=== PATIENT | female | born 1945 | race Caucasian/White ===

== ENCOUNTER → 2017-08-27 14:47 | Outpatient (CLI) | payer MEDICARE, OTHER, SELFPAY ==
--- NOTE | 2017-08-27 14:54 | RAD_ITS ---
STUDY: X-RAY CHEST REASON FOR EXAM: Female, 72 years old. Cough. TECHNIQUE: PA and lateral views of the chest. COMPARISON: None. FINDINGS: The lungs are clear and expanded. There is no demonstrated pleural abnormality. Normal size heart. Normal mediastinum and milton. Normal visualized pulmonary arteries. There is mild tortuosity of the thoracic aorta. There are diffuse degenerative changes of the visualized thoracic spine. Normal visualized ribs, clavicles, and shoulders. There is no demonstrated abnormality of the visualized soft tissue structures of the upper abdomen. RAD/Chest PA and Lateral IMPRESSION: No acute cardiopulmonary disease. Electronically Signed: Jose E Mobley DO at 16:37 EDT Tel [phone], Service support ,
== END ==
PROVIDERS: Family Provider Family Medicine; PCP Family Medicine; Visit Provider Family Medicine
DX: R05 Cough (principal); N30.90 Cystitis, unspecified without hematuria
CPT/HCPCS: 71046; 87086

== ENCOUNTER → 2017-12-20 16:16 | Outpatient (CLI) | payer MEDICARE, OTHER, SELFPAY ==
--- NOTE | 2017-12-20 16:20 | RAD_ITS ---
STUDY: X-RAY - LUMBAR SPINE REASON FOR EXAM: Female, 72 years old. Back pain extending into the right hip with history of prior back surgeries TECHNIQUE: 6 view(s) of the lumbar spine were obtained. COMPARISON: None FINDINGS: Normal lumbar lordosis. There is a levoscoliosis of the lumbar spine. There is a normal alignment of the vertebrae. There is multilevel endplate spondylosis of the lumbar vertebrae. Operative changes with disc implants identified at L3-L4 and L4-L5. There is moderate facet arthropathy of the mid to lower lumbar levels. There is no demonstrated fracture. There is no demonstrated spondylolysis of the pars interarticulares. Minor loss of disc space at L2-L3. The soft tissue structures are unremarkable. RAD/L/S Spine Min 4 Views IMPRESSION: 1. Mid to lower level facet arthropathy. 2. Operative changes at L3-L4 and L4-L5. 3. Degenerative disc disease at L2-L3. Electronically Signed: Sanjay He MD at 8:23 EDT , Service support ,
--- NOTE | 2017-12-20 16:22 | RAD_ITS ---
STUDY: X-RAY - PELVIS AND RIGHT HIP REASON FOR EXAM: Female, 72 years old. Low back pain extending into the right hip TECHNIQUE: Radiological exam, hip, unilateral, with pelvis when performed; 2 or 3 views. COMPARISON: Report from left hip dated 06/14/2011 FINDINGS: There is a non-specific bowel gas pattern. Normal visualized soft tissue structures. There operative changes of the lower lumbar spine. Normal bilateral iliac wings, sacroiliac joints and visualized sacrum. Normal bilateral superior and inferior pubic rami. Normal pubic symphysis. There is a sclerotic lesion of the left acetabulum, without associated periosteal reaction or bony destruction. Normal visualized femoral head. Normal acetabulum. Normal hip joint. RAD/HIP, UNI W/ Pelvis 2-3 Views IMPRESSION: 1. No erosive or proliferative arthropathy. 2. Probable bone islands of the left acetabulum. Described in prior report of 2011 (images are not available for direct comparison). Electronically Signed: Sanjay He MD at 8:25 EDT , Service support ,
== END ==
PROVIDERS: Family Provider Family Medicine; PCP Family Medicine; Visit Provider Family Medicine
DX: M54.5 Low back pain (principal); M25.551 Pain in right hip
CPT/HCPCS: 72110; 73502

== ENCOUNTER → 2018-04-15 08:40 | Outpatient (CLI) | payer MEDICARE, OTHER, SELFPAY ==
--- NOTE | 2018-04-15 08:43 | BI_ITS ---
MAMMOGRAPHY - BILATERAL SCREENING REASON FOR EXAM: Female, 72 years old. Routine annual screening examination. PERTINENT HISTORY: Non-contributory. TECHNIQUE: Digital bilateral breast carlito (3D mammographic acquisition) in the CC and MLO projections. 2-D mediolateral oblique (MLO) and craniocaudad (CC) views of both breasts were obtained. CAD: Full Field Digital Mammography with Computer Added Detection was performed. COMPARISON: Comparison is made with prior mammogram dated April 14, 2017 and December 31, 2015. FINDINGS: Breast Composition: The breasts are heterogeneously dense, which may obscure small masses. There is a 2.1 cm x 1.4 cm slightly lobular nodule in the inferior anterior medial aspect of the right breast. Prior sonogram demonstrated this to be a cyst. No other significant abnormalities are identified. There has been no significant change since the prior study. BI/SCREENING MAMM (CAD), BILAT IMPRESSION: Stable bilateral screening mammogram. Yearly follow-up mammogram recommended. (A) ASSESSMENT CATEGORY: BIRADS Category 2: Benign. A letter regarding these results will be sent to the patient by the facility within 30 days. Approximately 10% of breast cancers are not detected by mammography. A normal mammogram should not delay biopsy of a clinically suspicious abnormality. [id number] Electronically Signed: Parth Alvarenga MD at 13:13 EST Tel [phone], Service support ,
--- OUTSIDE RECORDS SUMMARY | 2018-06-08 10:03 | XMS RPT_ITS ---
:1945 Author Organization [facility] Care Team Providers Name Role Phone Venkata Patel Attending Unavailable Jorge, Venkata Referring Unavailable Patel, Venkata Primary Care Unavailable Jorge Venkata Attending Unavailable Patel, Venkata Referring Unavailable Patel, Venkata Primary Care Unavailable Ignacia De Paz Attending Unavailable Ignacia De Paz Referring Unavailable Patel, Venkata Primary Care Unavailable PROBLEMS PROBLEMS DATE TYPE CONDITION / CODE ATTENDING STATUS SOURCE 12/20/2017 Unknown M25.551 - Pain in Patel, Venkata Active [facility] right hip / [facility] M25.551(ICD-10) Hospital Repository 12/20/2017 Unknown M54.5 - Low back Patel, Venkata Active [facility] pain / [facility] M54.5(ICD-10) Hospital Repository 08/27/2017 Unknown N30.90 - Patel, Venkata Active [facility] Cystitis, Community unspecified Hospital without hematuria Repository / N30.90(ICD-10) 08/27/2017 Unknown R05 - Cough / Patel, Venkata Active [facility] R05(ICD-10) [facility] PROCEDURES PROCEDURES No Procedure Records FoundRESULTS RESULTS SCREENING MAMM (CAD), Observed: 04/15/2018 Status: F Source: [place] 8:44 AM [facility] REPOSITORY [facility] Imaging Services [address] [place] [address] SCREENING MAMM (CAD), BILAT MR#: [id number] Acct: [id number] Name: ODILON TEJADA Rep #: [id number] : 1945 F 72 From: Parth Alvarenga MD PCP: Venkata Patel MD Status: REG CLI Study: SCREENING MAMM (CAD), BILAT Date of Exam: 04/15/18 Exam# [id number] Ordering Dr: Ignacia De Paz MD MAMMOGRAPHY - BILATERAL SCREENING REASON FOR EXAM: Female, 72 years old. Routine annual screening examination. PERTINENT HISTORY: Non-contributory. TECHNIQUE: Digital bilateral breast carlito (3D mammographic acquisition) in the CC and MLO projections. 2-D mediolateral oblique (MLO) and craniocaudad (CC) views of both breasts were obtained. CAD: Full Field Digital Mammography with Computer Added Detection was performed. COMPARISON: Comparison is made with prior mammogram dated April 14, 2017 and December 31, 2015. FINDINGS: Breast Composition: The breasts are heterogeneously dense, which may obscure small masses. There is a 2.1 cm x 1.4 cm slightly lobular nodule in the inferior anterior medial aspect of the right breast. Prior sonogram demonstrated this to be a cyst. No other significant abnormalities are identified. There has been no significant change since the prior study. BI/SCREENING MAMM (CAD), BILAT IMPRESSION: Stable bilateral screening mammogram. Yearly follow-up mammogram recommended. (A) ASSESSMENT CATEGORY: BIRADS Category 2: Benign. A letter regarding these results will be sent to the patient by the facility within 30 days. Approximately 10% of breast cancers are not detected by mammography. A normal mammogram should not delay biopsy of a clinically suspicious abnormality. [id number] Electronically Signed: Parth Alvarenga MD at 13:13 EST Tel [phone], Service support , CC: Ignacia De Paz MD; Venkata Patel MD Gyn Physician: Signed L/S SPINE MIN 4 Observed: 12/20/2017 Status: F Source: [place] VIEWS 4:20 PM [facility] [place] Imaging Services [address] [place] [address] L/S Spine Min 4 Views MR#: [id number] Acct: [id number] Name: ODILON TEJADA Rep #: [id number] : 1945 F 72 From: Sanjay He MD PCP: Venkata Patel MD Status: REG CLI Study: L/S Spine Min 4 Views Date of Exam: 12/20/17 Exam# [id number] Ordering Dr: Venkata Patel MD STUDY: X-RAY - LUMBAR SPINE REASON FOR EXAM: Female, 72 years old. Back pain extending into the right hip with history of prior back surgeries TECHNIQUE: 6 view(s) of the lumbar spine were obtained. COMPARISON: None FINDINGS: Normal lumbar lordosis. There is a levoscoliosis of the lumbar spine. There is a normal alignment of the vertebrae. There is multilevel endplate spondylosis of the lumbar vertebrae. Operative changes with disc implants identified at L3-L4 and L4-L5. There is moderate facet arthropathy of the mid to lower lumbar levels. There is no demonstrated fracture. There is no demonstrated spondylolysis of the pars interarticulares. Minor loss of disc space at L2-L3. The soft tissue structures are unremarkable. RAD/L/S Spine Min 4 Views IMPRESSION: 1. Mid to lower level facet arthropathy. 2. Operative changes at L3-L4 and L4-L5. 3. Degenerative disc disease at L2-L3. Electronically Signed: Sanjay He MD at 8:23 EDT , Service support , CC: Venkata Patel MD Gyn Physician: Signed HIP, UNI W/ PELVIS Observed: 12/20/2017 Status: F Source: [place] 2-3 VIEWS 4:20 PM [facility] Imaging Services [address] [place] [address] HIP, UNI W/ Pelvis 2-3 Views MR#: [id number] Acct: [id number] Name: ODILON TEJADA Rep #: [id number] : 1945 F 72 From: Sanjay He MD PCP: Venkata Patel MD Status: REG CLI Study: HIP, UNI W/ Pelvis 2-3 Views Date of Exam: 12/20/17 Exam# [id number] Ordering Dr: Venkata Patel MD STUDY: X-RAY - PELVIS AND RIGHT HIP REASON FOR EXAM: Female, 72 years old. Low back pain extending into the right hip TECHNIQUE: Radiological exam, hip, unilateral, with pelvis when performed; 2 or 3 views. COMPARISON: Report from left hip dated 06/14/2011 FINDINGS: There is a non-specific bowel gas pattern. Normal visualized soft tissue structures. There operative changes of the lower lumbar spine. Normal bilateral iliac wings, sacroiliac joints and visualized sacrum. Normal bilateral superior and inferior pubic rami. Normal pubic symphysis. There is a sclerotic lesion of the left acetabulum, without associated periosteal reaction or bony destruction. Normal visualized femoral head. Normal acetabulum. Normal hip joint. RAD/HIP, UNI W/ Pelvis 2-3 Views IMPRESSION: 1. No erosive or proliferative arthropathy. 2. Probable bone islands of the left acetabulum. Described in prior report of 2011 (images are not available for direct comparison). Electronically Signed: Sanjay He MD at 8:25 EDT , Service support , CC: Venkata Patel MD Gyn Physician: Signed Observed: 08/27/2017 Status: F Source: [place] CULTURE, URINE 2:56 PM [facility] Urine Culture Culture exhibits no growth. Performed By: #### M100.0650 #### [facility] [address] [place], [address] CHEST PA AND LATERAL Observed: 08/27/2017 Status: F Source: [place] 2:54 PM [facility] Imaging Services [address] [place] [address] Chest PA and Lateral MR#: [id number] Acct: [id number] Name: ODILON TEJADA Rep #: [id number] : 1945 F 72 From: Jose E Mobley DO PCP: Venkata Patel MD Status: REG CLI Study: Chest PA and Lateral Date of Exam: 08/27/17 Exam# [id number] Ordering Dr: Venkata Patel MD STUDY: X-RAY CHEST REASON FOR EXAM: Female, 72 years old. Cough. TECHNIQUE: PA and lateral views of the chest. COMPARISON: None. FINDINGS: The lungs are clear and expanded. There is no demonstrated pleural abnormality. Normal size heart. Normal mediastinum and milton. Normal visualized pulmonary arteries. There is mild tortuosity of the thoracic aorta. There are diffuse degenerative changes of the visualized thoracic spine. Normal visualized ribs, clavicles, and shoulders. There is no demonstrated abnormality of the visualized soft tissue structures of the upper abdomen. RAD/Chest PA and Lateral IMPRESSION: No acute cardiopulmonary disease. Electronically Signed: Jose E Mobley at 16:37 EDT Tel [phone], Service support , CC: Venkata Patel MD Gyn Physician: Signed ALLERGIES ALLERGIES No Allergies Records FoundENCOUNTERS ENCOUNTERS ADMIT/DISCHARGE ACCOUNT ADMITTING ENCOUNTER LOCATION SOURCE NUMBER CLASS 04/15/2018 [id number] Ambulatory [facility] 5 [facility] ing:OPBI Repository 12/20/2017 [id number] Ambulatory [facility] 6 [facility] ing:MTRAD Repository 08/27/2017 [id number] Ambulatory [facility] 8 [facility] ing:MTLAB Repository PAYERS PAYERS ENCOUNTER GUARANTOR PAYER SUBSCRIBER SOURCE 04/15/2018 ODILON F Primary ODILON F [facility] [id number] Insurance:MEDICARE WALKERLYDOB: [facility] [id number] Number: Repository [id number]: 330 [id number] [phone] () Date:2018-01-01 04/15/2018 Secondary ODILON F [facility] Insurance:MEDICAL WALKERLYDOB: [facility] [id number] Hospital Number: Repository [id number] Date:4926-19-[address] [address]TG: 04/15/2018 Tertiary NOT GIVENUNK [facility] Insurance:SELF PAY [facility] Number: Effective Repository Date:2018-01-01 12/20/2017 SARAH Schneider Primary ODILON F [facility] [id number] Insurance:MEDICARE WALKERLYDOB: [facility] [id number] Number: Repository [id number]: 330 [id number] [phone] () Date:2017-12-20 12/20/2017 Secondary ODILON F [facility] Insurance:MEDICAL WALKERLYDOB: [facility] [id number] Hospital Number: Repository [id number] Date:3758-63-66[address] [place] [address] [place] [address]XW: 12/20/2017 Tertiary NOT GIVENUNK [facility] Insurance:SELF PAY [facility] Number: Effective Repository Date:2017-12-20 08/27/2017 SARAH Schneider Primary ODILON F [facility] [id number] Insurance:MEDICARE WALKERLYDOB[place] [facility] [id number] Number: Repository [id number]: [phone] [id number] [phone] () Date:2017-08-27 08/27/2017 Secondary ODILON F [facility] Insurance:MEDICAL WALKERLYDOB: [facility] [id number] Hospital Number: Repository [id number] Date:5291-25-89[address], [place] [address]HU: 08/27/2017 Tertiary NOT GIVENUNK [facility] Insurance:SELF PAY [facility] Number: Effective Repository Date:2017-08-27
== END ==
PROVIDERS: Family Provider Family Medicine; PCP Family Medicine; Referring Provider Obstetrics & Gynecology; Visit Provider Obstetrics & Gynecology
DX: Z12.31 Encounter for screening mammogram for malignant neoplasm of breast (principal)
CPT/HCPCS: 77063; 77067

== ENCOUNTER → 2018-11-11 | Outpatient (CLI) | payer MEDICARE, OTHER, SELFPAY | END | disposition home or self-care (01) | LOC: LABSPEC 12:59 | PROVIDERS: Family Provider Family Medicine; PCP Family Medicine; Referring Provider Family Medicine; Visit Provider Family Medicine | DX: J32.9 Chronic sinusitis, unspecified (principal) | CPT/HCPCS: 87070; 87077; 87205 ==

== ENCOUNTER → 2019-06-18 08:34 | Outpatient (CLI) | payer MEDICARE, OTHER, SELFPAY ==
--- NOTE | 2019-06-18 08:36 | BI_ITS ---
MAMMOGRAPHY - BILATERAL SCREENING REASON FOR EXAM: Female, 74 years old. Routine annual screening examination. PERTINENT HISTORY: Non-contributory. Prior right breast aspiration. TECHNIQUE: Digital bilateral breast yaritza (3D mammographic acquisition) in the CC and MLO projections. 2-D mediolateral oblique (MLO) and craniocaudad (CC) views of both breasts were obtained. CAD: Full Field Digital Mammography with Computer Added Detection was performed. COMPARISON: Comparison is made with prior examination dated April 15, 2018 and April 14, 2017. FINDINGS: Breast Composition: The breasts are heterogeneously dense, which may obscure small masses. There are no dominant masses or suspicious calcifications. There is a 1.4 cm x 1.5 cm slightly lobulated nodule in the slightly inferior medial aspect of the right breast. This has decreased in size as compared to prior study. This was demonstrated to be a cyst on prior sonogram. No other significant abnormalities are identified. There has been no significant change since the prior study. BI/SCREEN MAMM (CAD) W/YARITZA BILAT IMPRESSION: Stable bilateral screening mammogram. Yearly follow-up mammogram recommended. (A) ASSESSMENT CATEGORY: BIRADS Category 2: Benign. A letter regarding these results will be sent to the patient by the facility within 30 days. Approximately 10% of breast cancers are not detected by mammography. A normal mammogram should not delay biopsy of a clinically suspicious abnormality. [id number] Electronically Signed: Parth Alvarenga, at 14:44 EST , Service support ,
== END ==
PROVIDERS: PCP Family Medicine; Referring Provider Obstetrics & Gynecology; Visit Provider Obstetrics & Gynecology
DX: Z12.31 Encounter for screening mammogram for malignant neoplasm of breast (principal)
CPT/HCPCS: 77063; 77067

== ENCOUNTER → 2020-08-25 10:05 | Outpatient (CLI) | payer MEDICARE, SELFPAY ==
--- NOTE | 2020-08-25 10:07 | BI_ITS ---
MAMMOGRAPHY - BILATERAL SCREENING REASON FOR EXAM: Female, 75 years old. Routine annual screening examination. PERTINENT HISTORY: Non-contributory. TECHNIQUE: Digital bilateral breast yaritza (3D mammographic acquisition) in the CC and MLO projections. 2-D mediolateral oblique (MLO) and craniocaudad (CC) views of both breasts were obtained. CAD: Full Field Digital Mammography with Computer Added Detection was performed. COMPARISON: Comparison is made with prior study dated 06/18/2019 and 04/15/2018. FINDINGS: Breast Composition: The breasts are heterogeneously dense, which may obscure small masses. Stable 1.4 cm x 1.5 cm slightly lobulated nodule in the slightly inferior medial aspect of the right breast. Stable small benign-appearing bilateral axillary lymph nodes. This was demonstrated to be a cyst on prior ultrasound. No other significant abnormalities are identified. There has been no significant change since the prior study. BI/SCRN MAMM (CAD)W/YARITZA BILAT IMPRESSION: Stable bilateral screening mammogram. Yearly follow-up mammogram recommended. (A) ASSESSMENT CATEGORY: BIRADS Category 2: Benign. A letter regarding these results will be sent to the patient by the facility within 30 days. Approximately 10% of breast cancers are not detected by mammography. A normal mammogram should not delay biopsy of a clinically suspicious abnormality. [id number] Electronically Signed: Parth Alvarenga MD at 11:20 EDT , Service support ,
== END ==
PROVIDERS: PCP Family Medicine; Referring Provider Student in an Organized Health Care Education/Training Program; Visit Provider Student in an Organized Health Care Education/Training Program
DX: Z12.31 Encounter for screening mammogram for malignant neoplasm of breast (principal)
CPT/HCPCS: 77063; 77067

== ENCOUNTER → 2020-09-08 10:53 | Outpatient (CLI) | payer MEDICARE, SELFPAY ==
--- NOTE | 2020-09-08 11:03 | BD_ITS ---
STUDY: DUAL ENERGY X-RAY ABSORPTIOMETRY / DXA REASON FOR EXAM: Female, 75 years old. V76.12ScreeningBONE DENSITY REASON FOR EXAM TECHNIQUE: Bone Mineral Density (BMD) measurements of lumbar spine and bilateral hips were obtained. COMPARISON: Comparison is made with prior study dated 04/27/2010. FINDINGS: Lumbar Spine (L1-L4): g/cm2 (1.122) / T-score (-0.4) / Z-score (1.4) Findings are suggestive of normal bone density with a low fracture risk. Increased thoracic kyphosis. Left Femur Total: g/cm2 (1.043) / T-score (0.3) / Z-score (2.0) Left Femoral Neck: g/cm2 (0.945) / T-score (-0.7) / Z-score (1.3) Right Femur Total: g/cm2 (1.059) / T-score (0.4) / Z-score (2.1) Right Femoral Neck: g/cm2 (0.968) / T-score (-0.5) / Z-score (1.4) The T-Scores on the most recent prior examination were: Lumbar Spine (L1-L4): There has been improvement of bone density since the previous examination. Left Femur Total: which represents an improvement of 2.4%. Right Femur Total: which represents an improvement of 2.3%. BD/Dexa Bone Density Study IMPRESSION: The patient is considered normal as outlined below according to World Manoj Organization (WHO) criteria with a low fracture risk. There has been improvement of bone density since the previous examination. Reference Information: The T-score is the number of standard deviations above or below the standard which is normal for young adults at their peak bone mineral density. The World Health Organization (WHO) interprets the T-scores as follows: Above -1 Normal bone density Between -1 and -2.5 Osteopenia Equal to / or below -2.5 Osteoporosis As a practical clinical guideline, osteopenia may be graded as follows: Mild -1 through -1.5 Moderate -1.6 through -2.0 Severe -2.1 through -2.4 The Z-score is the number of standard deviations above or below age-matched controls. A Z-score of less than -1.5 would be considered abnormal. References: 1. NIH Osteoporosis and Related Bone Diseases www osteo.org 2. International Society for Clinical Densitometry www iscd.org 3. National Osteoporosis Foundation www nof.org Electronically Signed: Parth Alvarenga MD at 14:26 EDT , Service support ,
== END ==
PROVIDERS: PCP Family Medicine; Referring Provider Student in an Organized Health Care Education/Training Program; Visit Provider Student in an Organized Health Care Education/Training Program
DX: Z13.820 Encounter for screening for osteoporosis (principal); M81.0 Age-related osteoporosis without current pathological fracture
CPT/HCPCS: 77080

== ENCOUNTER → 2021-09-02 | Outpatient (CLI) | payer MEDICARE, SELFPAY | END | disposition home or self-care (01) | LOC: LABSPEC 15:13 | PROVIDERS: PCP Family Medicine; Referring Provider Otolaryngology Otolaryngology/Facial Plastic Surgery; Visit Provider Otolaryngology Otolaryngology/Facial Plastic Surgery | DX: J32.9 Chronic sinusitis, unspecified (principal) | CPT/HCPCS: 87070; 87205 ==

== ENCOUNTER → 2021-09-21 | Outpatient (CLI) | payer MEDICARE, SELFPAY ==
[2021-09-21 12:31] LABS: Absolute Lymphocyte Count 1.33 X10^3/uL (0.83-4.51); Absolute Neutrophil Count 3.5 X10^3/uL (2.0-7.7); Basophil# 0.12 X10^3/uL; Basophil% 2.2 % (0-1); Eosinophil# 0.23 X10^3/uL; Eosinophils% 4.1 % (0-5); Hematocrit 44.6 % (37-47); Hemoglobin 14.3 g/dL (12.0-15.0); Lymphocyte # 1.33 X10^3/ul (0.83-4.51); Lymphocyte % 23.8 % (19-41); Mean Corp Hgb Conc 32.1 g/dL (32-36); Mean Corpuscular Hgb 29.7 pg (27.0-32.0); Mean Corpuscular Volume 92.7 fL (81-99); Mean Platelet Vol. 10.4 fl (6.2-12.0); Monocyte# 0.41 X10^3/uL; Monocyte% 7.3 % (0-10); NRBC Flagged by Analyzer 0 % (0-5); Neutrophil # 3.46 X10^3/uL (2.7-7.7); Neutrophil % 62.1 % (47-70); Platelet Count 221 K/mm3 (150-450); RBC Distribution Width SD 44.2 fl (35.1-43.9); Red Blood Count 4.81 M/mm3 (4.2-5.4); White Blood Count 5.6 K/mm3 (4.4-11.0)
[2021-09-21 12:54] LABS: AST(SGOT) 12 U/L (15-37); Alanine Aminotransfer ALT/SGPT 23 U/L (13-56); Albumin, Serum 3.6 g/dL (3.2-5.0); Alkaline Phosphatase 53 U/L (45-117); Anion Gap 7 (5-15); BUN 21 mg/dL (7-18); BUN/Creat Ratio 23.9 RATIO (10-20); Calcium,Total 8.5 mg/dL (8.5-10.1); Chloride 104 mmol/L (98-107); Creatinine, Serum 0.88 mg/dL (0.55-1.02); EST Glomerular Filtration Rate 67 mL/min (>60); Est Glom Filt Rate - Afr Amer 81 mL/min (>60); Globulin 3.5 g/dL (2.2-4.2); Glucose 120 mg/dL (74-106); Potassium 3.5 mmol/L (3.5-5.1); Protein, Total 7.1 g/dL (6.4-8.2); Sodium Level 137 mmol/L (136-145); T4 Free Direct 1.23 ng/dL (0.76-1.46); Thyroid Stim Hormone (TSH) 0.68 uIU/mL (0.358-3.74)
[2021-09-21 13:09] LABS: Microalbumin,Random Urine 6.9 mg/L (NO RANGE EST.); Microalbumin:Creatinine Ratio 13.8 mg/g CRE (<30 mg/g CRE)
[2021-09-21 13:17] LABS: Hepatitis C Antibody Non-Reactive (Nonreactive)
== END | disposition home or self-care (01) ==
PROVIDERS: PCP Family Medicine; Referring Provider Family Medicine; Visit Provider Family Medicine
DX: I10 Essential (primary) hypertension (principal); Z11.59 Encounter for screening for other viral diseases; M48.061 Spinal stenosis, lumbar region without neurogenic claudication; E03.9 Hypothyroidism, unspecified
CPT/HCPCS: 36415; 80053; 82043; 82570; 84439; 84443; 85025; 86803

== ENCOUNTER → 2021-09-26 | Outpatient (CLI) | payer MEDICARE, SELFPAY ==
--- NOTE | 2021-09-26 08:47 | BI_ITS ---
MAMMOGRAPHY - BILATERAL SCREENING REASON FOR EXAM: Female, 76 years old. Routine annual screening examination. PERTINENT HISTORY: Non-contributory. TECHNIQUE: Digital bilateral breast yaritza (3D mammographic acquisition) in the CC and MLO projections. 2-D mediolateral oblique (MLO) and craniocaudad (CC) views of both breasts were obtained. CAD: Full Field Digital Mammography with Computer Added Detection was performed. COMPARISON: Comparison is made with prior study dated 08/25/2020 06/18/2019. FINDINGS: Breast Composition: The breasts are heterogeneously dense, which may obscure small masses. There are no dominant masses or suspicious calcifications. The previously seen 1.4 cm by 1.5 cm nodular density in the slightly inferior medial aspect of the right breast is once again seen. It is essentially unchanged. This was demonstrated to be a cyst on prior sonogram. Stable small benign-appearing bilateral axillary lymph nodes. No other significant abnormalities are identified. There has been no significant change since the prior study. BI/SCRN MAMM (CAD)W/YARITZA BILAT IMPRESSION: Stable bilateral screening mammogram. Yearly follow-up mammogram recommended. (A) ASSESSMENT CATEGORY: BIRADS Category 2: Benign. A letter regarding these results will be sent to the patient by the facility within 30 days. Approximately 10% of breast cancers are not detected by mammography. A normal mammogram should not delay biopsy of a clinically suspicious abnormality. [id number] Electronically Signed: Parth Alvarenga MD at 10:33 EDT ,
== END | disposition home or self-care (01) ==
LOC: OPBI 08:40
PROVIDERS: PCP Family Medicine; Visit Provider Student in an Organized Health Care Education/Training Program
DX: Z12.31 Encounter for screening mammogram for malignant neoplasm of breast (principal)
CPT/HCPCS: 77063; 77067

== ENCOUNTER → 2022-11-10 | Outpatient (CLI) | payer MEDICARE, SELFPAY ==
[2022-11-10 11:20] LABS: ALB/GLOB Ratio 0.9 RATIO (0.9-2.4); AST(SGOT) 17 U/L (15-37); Alanine Aminotransfer ALT/SGPT 22 U/L (13-56); Albumin, Serum 3.6 g/dL (3.2-5.0); Alkaline Phosphatase 59 U/L (45-117); Anion Gap 6 (5-15); BUN 16 mg/dL (7-18); BUN/Creat Ratio 21.7 RATIO (10-20); Calcium,Total 9.2 mg/dL (8.5-10.1); Chloride 107 mmol/L (98-107); Cholesterol 219 mg/dL (200); Creatinine, Serum 0.74 mg/dL (0.55-1.02); EST Glomerular Filtration Rate 81 mL/min (>60); Est Glom Filt Rate - Afr Amer 98 mL/min (>60); Globulin 3.9 g/dL (2.2-4.2); Glucose 94 mg/dL (74-106); High Density Lipoprotein 66 mg/dL; Potassium 3.7 mmol/L (3.5-5.1); Protein, Total 7.5 g/dL (6.4-8.2); Sodium Level 141 mmol/L (136-145); Thyroid Stim Hormone (TSH) 1.07 uIU/mL (0.358-3.74); Triglycerides 140 mg/dL; Very Low Density Lipoprotein 28 mg/dL (5-40)
[2022-11-10 13:08] LABS: Microalbumin,Random Urine < 5.0 mg/L (NO RANGE EST.)
== END | disposition home or self-care (01) ==
LOC: MTLAB 07:30
PROVIDERS: PCP Family Medicine; Referring Provider Family Medicine; Visit Provider Family Medicine
DX: I10 Essential (primary) hypertension (principal); Z13.220 Encounter for screening for lipoid disorders; E03.9 Hypothyroidism, unspecified
CPT/HCPCS: 36415; 80053; 80061; 82043; 82570; 84443

== ENCOUNTER → 2022-12-12 | Outpatient (CLI) | payer MEDICARE, SELFPAY ==
--- NOTE | 2022-12-12 09:16 | BI_ITS ---
MAMMOGRAPHY - BILATERAL SCREENING REASON FOR EXAM: Female, 77 years old. Routine annual screening examination. PERTINENT HISTORY: Non-contributory. Remote right breast aspiration. TECHNIQUE: Digital bilateral breast yaritza (3D mammographic acquisition) in the CC and MLO projections. 2-D mediolateral oblique (MLO) and craniocaudad (CC) views of both breasts were obtained. CAD: Full Field Digital Mammography with Computer Added Detection was performed. COMPARISON: Comparison is made with prior study dated September 26, 2021 and August 25, 2020. FINDINGS: Breast Composition: The breasts are heterogeneously dense, which may obscure small masses. There is a 1.4 cm x 1.3 cm well-defined nodule in the medial central portion of the right breast. This also evidence of a 8.2 mm x 6.8 mm nodule in the retroareolar region of the right breast. This also evidence of a small well-defined nodules in the retroareolar region of the left breast. The larger measures 7.1 cm x 7.4 cm. Correlation with ultrasound is recommended for further evaluation. Stable small benign-appearing bilateral axillary lymph nodes. No other significant abnormalities are identified. BI/SCRN MAMM (CAD)W/YARITZA BILAT IMPRESSION: Nodular densities are seen in both breasts as described. Correlation with ultrasound is recommended. ASSESSMENT CATEGORY: BIRADS Category 0: Incomplete. Need additional imaging evaluation. A letter regarding these results will be sent to the patient by the facility within 30 days. Approximately 10% of breast cancers are not detected by mammography. A normal mammogram should not delay biopsy of a clinically suspicious abnormality. [id number] Electronically Signed: Parth Alvarenga MD at 14:02 EDT ,
== END | disposition home or self-care (01) ==
LOC: OPBI 09:15
PROVIDERS: PCP Family Medicine; Referring Provider Student in an Organized Health Care Education/Training Program; Visit Provider Student in an Organized Health Care Education/Training Program
DX: Z01.419 Encounter for gynecological examination (general) (routine) without abnormal findings (principal); Z12.31 Encounter for screening mammogram for malignant neoplasm of breast
CPT/HCPCS: 77063; 77067

== ENCOUNTER → 2022-12-22 | Outpatient (CLI) | payer MEDICARE, SELFPAY ==
--- NOTE | 2022-12-22 07:59 | US_ITS ---
STUDY: ULTRASOUND BREAST - RIGHT REASON FOR EXAM: Female, 77 years old. Abnormal screening mammogram. TECHNIQUE: Axial and longitudinal images of the RIGHT breast were performed with a high resolution ultrasound transducer. # OF IMAGES: 37 COMPARISON: Comparison is made with prior mammogram dated December 12, 2022. FINDINGS: RIGHT Breast: There is a 1.9 cm x 1.2 cm x 1.3 cm cyst with low-level echoes at the 3:00 position of the breast at 3 cm from the nipple. The margins are slightly lobular. Cystic drainage is recommended. There are dilated subareolar ducts. IMPRESSION: 1.9 cm x 1.2 cm x 1.3 cm cyst with echoes within it at the 2:00 position breast at 3 cm from the nipple. The contour is slightly lobulated. Breast aspirations recommended. Dilated retroareolar ducts. ASSESSMENT CATEGORY: BIRADS Category 4: Suspicious - Biopsy Should Be Considered. A letter regarding these results will be sent to the patient by the facility within 30 days. Electronically Signed: Parth Alvaernga MD at 10:18 EDT , STUDY: ULTRASOUND BREAST - LEFT REASON FOR EXAM: Female, 77 years old. Abnormal screening mammogram. TECHNIQUE: Axial and longitudinal images of the LEFT breast were performed with a high resolution ultrasound transducer. # OF IMAGES: 37 COMPARISON: Comparison is made with prior mammogram dated December 12, 2022. FINDINGS: LEFT Breast: There are dilated subareolar ducts. US/Breast Limited Unilateral IMPRESSION: Dilated retroareolar ducts. ASSESSMENT CATEGORY: BIRADS Category 2: Benign. A letter regarding these results will be sent to the patient by the facility within 30 days. Electronically Signed: Parth Alvarenga MD at 10:19 EDT ,
== END | disposition home or self-care (01) ==
PROVIDERS: PCP Family Medicine; Referring Provider Student in an Organized Health Care Education/Training Program; Visit Provider Student in an Organized Health Care Education/Training Program
DX: R92.8 Other abnormal and inconclusive findings on diagnostic imaging of breast (principal)
CPT/HCPCS: 76642

== ENCOUNTER → 2023-02-02 | Outpatient (CLI) | payer MEDICARE, SELFPAY ==
--- NOTE | 2023-02-02 15:05 | US_ITS ---
STUDY: SUPERFICIAL ULTRASOUND - LEFT KNEE REASON FOR EXAM: Female, 77 years old. left popliteal and lateral calve/hamstring pain, fullness felt in TECHNIQUE: A superficial ultrasound was performed with real-time and static lopez-scale imaging. COMPARISON: None. 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 US/Ext Non Vasc Limited/Soft Tiss IMPRESSION: Ultrasound confirms within the linear of Jensen''s cyst. MRI may be useful. Electronically Signed: Hector De La Cruz MD at 14:32 EDT ,
== END | disposition home or self-care (01) ==
LOC: US 15:04
PROVIDERS: PCP Family Medicine; Referring Provider Family Medicine; Visit Provider Family Medicine
DX: M71.22 Synovial cyst of popliteal space [Baker], left knee (principal)
CPT/HCPCS: 76882

== ENCOUNTER → 2023-04-24 | Outpatient (CLI) | payer MEDICARE, SELFPAY ==
[2023-04-24 18:19] LABS: Microalbumin,Random Urine 12.2 mg/L (NO RANGE EST.); Microalbumin:Creatinine Ratio 16.4 mg/g CRE (<30 mg/g CRE)
[2023-04-24 18:27] LABS: ALB/GLOB Ratio 1.1 RATIO (0.9-2.4); AST(SGOT) 16 U/L (15-37); Alanine Aminotransfer ALT/SGPT 22 U/L (13-56); Albumin, Serum 3.8 g/dL (3.2-5.0); Alkaline Phosphatase 57 U/L (45-117); Anion Gap 8 (5-15); BUN 17 mg/dL (7-18); BUN/Creat Ratio 23.2 RATIO (10-20); Calcium,Total 9.2 mg/dL (8.5-10.1); Chloride 107 mmol/L (98-107); Creatinine, Serum 0.73 mg/dL (0.55-1.02); EST Glomerular Filtration Rate 82 mL/min (>60); Est Glom Filt Rate - Afr Amer 99 mL/min (>60); Globulin 3.6 g/dL (2.2-4.2); Glucose 109 mg/dL (74-106); Potassium 3.5 mmol/L (3.5-5.1); Protein, Total 7.4 g/dL (6.4-8.2); Sodium Level 140 mmol/L (136-145)
== END | disposition home or self-care (01) ==
LOC: MTLAB 13:30
PROVIDERS: PCP Family Medicine; Referring Provider Family Medicine; Visit Provider Family Medicine
DX: I10 Essential (primary) hypertension (principal)
CPT/HCPCS: 36415; 80053; 82043; 82570

== ENCOUNTER → 2023-09-17 | Outpatient (CLI) | payer MEDICARE, SELFPAY ==
[2023-09-17 12:32] LABS: Absolute Lymphocyte Count 1.53 X10^3/uL (0.83-4.51); Absolute Neutrophil Count 4.2 X10^3/uL (2.0-7.7); Basophil# 0.12 X10^3/uL; Basophil% 1.9 % (0-1); Eosinophil# 0.18 X10^3/uL; Eosinophils% 2.8 % (0-5); Hematocrit 44.3 % (37-47); Lymphocyte # 1.53 X10^3/ul (0.83-4.51); Lymphocyte % 23.6 % (19-41); Mean Corp Hgb Conc 31.6 g/dL (32-36); Mean Corpuscular Hgb 28.4 pg (27.0-32.0); Mean Corpuscular Volume 89.9 fL (81-99); Mean Platelet Vol. 10.1 fl (6.2-12.0); Monocyte# 0.44 X10^3/uL; Monocyte% 6.8 % (0-10); NRBC Flagged by Analyzer 0 % (0-5); Neutrophil # 4.19 X10^3/uL (2.7-7.7); Neutrophil % 64.6 % (47-70); Platelet Count 239 K/mm3 (150-450); RBC Distribution Width CV 13.9 % (11.6-14.6); RBC Distribution Width SD 45.5 fl (35.1-43.9); Red Blood Count 4.93 M/mm3 (4.2-5.4); White Blood Count 6.5 K/mm3 (4.4-11.0)
[2023-09-17 12:55] LABS: Vitamin B12 > 2000 pg/mL (211-911)
[2023-09-17 13:39] LABS: AST(SGOT) 15 U/L (15-37); Alanine Aminotransfer ALT/SGPT 17 U/L (13-56); Albumin, Serum 3.6 g/dL (3.2-5.0); Alkaline Phosphatase 56 U/L (45-117); Anion Gap 4 (5-15); BUN 15 mg/dL (7-18); BUN/Creat Ratio 17.9 RATIO (10-20); Calcium,Total 8.8 mg/dL (8.5-10.1); Chloride 105 mmol/L (98-107); Creatinine, Serum 0.84 mg/dL (0.55-1.02); EST Glomerular Filtration Rate 70 mL/min (>60); Est Glom Filt Rate - Afr Amer 84 mL/min (>60); Globulin 3.6 g/dL (2.2-4.2); Glucose 126 mg/dL (74-106); Potassium 3.8 mmol/L (3.5-5.1); Protein, Total 7.2 g/dL (6.4-8.2); Sodium Level 139 mmol/L (136-145); T4 Free Direct 1.24 ng/dL (0.76-1.46); Thyroid Stim Hormone (TSH) 0.53 uIU/mL (0.358-3.74)
[2023-09-17 15:45] LABS: Microalbumin,Random Urine 5.3 mg/L (NO RANGE EST.); Microalbumin:Creatinine Ratio 11.1 mg/g CRE (<30 mg/g CRE)
== END | disposition home or self-care (01) ==
PROVIDERS: PCP Family Medicine; Referring Provider Family Medicine; Visit Provider Family Medicine
DX: R53.83 Other fatigue (principal); E03.9 Hypothyroidism, unspecified; I10 Essential (primary) hypertension
CPT/HCPCS: 80053; 82043; 82570; 82607; 82746; 84439; 84443; 85025

== ENCOUNTER → 2023-09-18 | Outpatient (CLI) | payer MEDICARE, SELFPAY ==
--- NOTE | 2023-09-18 09:33 | US_ITS ---
STUDY: ULTRASOUND BREAST - RIGHT REASON FOR EXAM: Female, 78 years old. Follow-up of right breast aspiration. TECHNIQUE: Axial and longitudinal images of the RIGHT breast were performed with a high resolution ultrasound transducer. # OF IMAGES: 8 COMPARISON: Comparison is made with prior sonogram of the right breast dated December 22, 2022. FINDINGS: RIGHT Breast: There is a 1.6 cm x 1.6 cm x 1.3 cm complex cystic structure at the 3:00 position of the breast at 3 cm from the nipple. This has decreased slightly in size as compared to prior study. US/Breast Limited Unilateral IMPRESSION: Persistent complex cystic structure at 3:00 position of the breast at 3 cm from the nipple. It has decreased slightly in size and presently measures 1.6 cm x 1.6 cm x 1.3 cm. ASSESSMENT CATEGORY: BIRADS Category 2: Benign. A letter regarding these results will be sent to the patient by the facility within 30 days. Electronically Signed: Parth Alvarenga MD at 15:33 EDT ,
== END | disposition home or self-care (01) ==
PROVIDERS: PCP Family Medicine; Visit Provider Surgery
DX: R92.8 Other abnormal and inconclusive findings on diagnostic imaging of breast (principal)
CPT/HCPCS: 76642

== ENCOUNTER → 2023-12-17 | Outpatient (CLI) | payer MEDICARE, SELFPAY ==
--- NOTE | 2023-12-17 11:45 | BI_ITS ---
MAMMOGRAPHY - BILATERAL SCREENING REASON FOR EXAM: Female, 78 years old. Routine annual screening examination. PERTINENT HISTORY: Non-contributory. History of prior right breast aspiration. TECHNIQUE: Digital bilateral breast yaritza (3D mammographic acquisition) in the CC and MLO projections. 2-D mediolateral oblique (MLO) and craniocaudad (CC) views of both breasts were obtained. CAD: Full Field Digital Mammography with Computer Added Detection was performed. COMPARISON: Comparison is made with prior study dated December 12, 2022 and September 26, 2021. FINDINGS: Breast Composition: The breasts are heterogeneously dense, which may obscure small masses. Once again, small bilateral well-defined nodules are seen in both breasts. The largest in the left breast measures 1 cm x 1.1 cm. This has decreased slightly in size as compared to prior study. The largest nodule in the left breast measures 1.2 cm x 1.4 cm. This is in the inferior medial aspect of the breast. No other significant abnormalities are identified. BI/SCRN MAMM (CAD)W/YARITZA BILAT IMPRESSION: Bilateral breast nodules. The nodule in the left breast has decreased in size. There is been a slight increase in the right breast nodule. Prior sonogram demonstrated these to be cysts. ASSESSMENT CATEGORY: BIRADS Category 2: Benign. A letter regarding these results will be sent to the patient by the facility within 30 days. Approximately 10% of breast cancers are not detected by mammography. A normal mammogram should not delay biopsy of a clinically suspicious abnormality. [id number] Electronically Signed: Parth Alvarenga MD at 12:39 EDT ,
== END | disposition home or self-care (01) ==
LOC: OPBI 11:44
PROVIDERS: PCP Family Medicine; Referring Provider Nurse Practitioner Women's Health; Visit Provider Nurse Practitioner Women's Health
DX: Z12.31 Encounter for screening mammogram for malignant neoplasm of breast (principal)
CPT/HCPCS: 77063; 77067

== ENCOUNTER → 2023-12-26 | Outpatient (CLI) | payer MEDICARE, SELFPAY ==
[2023-12-26 15:05] LABS: Absolute Lymphocyte Count 1.58 X10^3/uL (0.83-4.51); Absolute Neutrophil Count 4.5 X10^3/uL (2.0-7.7); Basophil# 0.11 X10^3/uL; Basophil% 1.5 % (0-1); Eosinophil# 0.21 X10^3/uL; Hematocrit 44.1 % (37-47); Hemoglobin 13.7 g/dL (12.0-15.0); Lymphocyte # 1.58 X10^3/ul (0.83-4.51); Lymphocyte % 22.3 % (19-41); Mean Corp Hgb Conc 31.1 g/dL (32-36); Mean Platelet Vol. 10.3 fl (6.2-12.0); Monocyte# 0.66 X10^3/uL; Monocyte% 9.3 % (0-10); NRBC Flagged by Analyzer 0 % (0-5); Neutrophil # 4.52 X10^3/uL (2.7-7.7); Neutrophil % 63.6 % (47-70); Platelet Count 277 K/mm3 (150-450); RBC Distribution Width CV 13.6 % (11.6-14.6); RBC Distribution Width SD 45.2 fl (35.1-43.9); White Blood Count 7.1 K/mm3 (4.4-11.0)
[2023-12-26 15:27] LABS: CRP < 2.90 mg/L (0.0-3.0)
[2023-12-26 15:42] LABS: Erythrocyte Sedimentation Rate 18 mm/hr (0-30)
== END | disposition home or self-care (01) ==
PROVIDERS: PCP Family Medicine; Referring Provider Family Medicine; Visit Provider Family Medicine
DX: Z96.652 Presence of left artificial knee joint (principal)
CPT/HCPCS: 36415; 85025; 85652; 86140

== ENCOUNTER 2024-02-11 07:47 | Day surgery (SDC) | payer MEDICARE, SELFPAY ==
[2024-02-11] VITALS (7 sets, daily range): BP systolic 120–130; BP diastolic 75–87; PULSE 72–95; RESP 14–18; TEMP 36.4–37.2; O2SAT 97–100; BMI 28.0
--- NOTE | 2024-02-11 08:10 | PCM.HP.BLA ---
History and Physical Date of Admission: 02/11/24 Date of Service: 01/16/24 MR#: [id number] Acct: [id number] Name: ODILON TEJADA Rep #: [id number] : 1945 Provider: Dr. Jia Stephen MD Age/Sex: 78/F Location: [facility] Status: Signed Intake Vital Signs 11/05/2413:02 01/13/2410:49 01/16/2408:52 Height 5 ft 5 in 5 ft 5 in 5 ft 5 in Weight: 171 lb 2 oz BMI 28.5 BP 123/76 H Blood Pressure Location Rt brachial Position Sitting Respiration 17 Pulse 82 Pulse Source Monitor Temp 97.3 F L Temp Source Temporal Pulse Oximetry (%) 98 Oxygen Delivery Method room air Intake Visit Reasons: positive cologuard Chief Complaint: positive cologuard Is patient in pain?: No Allergies amoxicillin (From Augmentin) Allergy (Intermediate, Verified 01/16/24 08:55) Rashclarithromycin (From Biaxin) Allergy (Intermediate, Verified 01/16/24 08:55) Rashclavulanic acid (From Augmentin) Allergy (Intermediate, Verified 01/16/24 08:55) Rashdoxycycline Allergy (Intermediate, Verified 01/16/24 08:55) HivesPenicillins Allergy (Intermediate, Verified 01/16/24 08:55) Hivesoxycodone (From Percocet) Allergy (Mild, Verified 01/16/24 08:55) RashSulfa (Sulfonamide Antibiotics) Allergy (Mild, Verified 01/16/24 08:55) Otherquinapril Adverse Reaction (Intermediate, Verified 01/16/24 08:55) Other Medications ?Medication ?Instructions ?Recorded ?Confirmed ?Type amlodipine 5 mg tablet 5 mg PO DAILY 02/12/23 01/16/24 History estradiol 0.075 mg/24 hr weekly 1 patch transdermal QWEEK 02/12/23 01/16/24 History transdermal patch (Climara) levothyroxine 100 mcg tablet 100 mcg PO DAILY 02/12/23 01/16/24 History (Synthroid) azithromycin 250 mg tablet See Rx Instructions PO .COMPLEX 10 01/14/24 01/16/24 Rx (Zithromax Z-Franco) days #11 tabs prednisone 10 mg tablet 10 mg PO .COMPLEX 12 days #30 tabs 01/14/24 01/16/24 Rx acetaminophen 650 mg 650 mg PO Q12H 01/16/24 01/16/24 History tablet,extended release (Tylenol Arthritis Pain) ascorbic acid (vitamin C) 1,000 mg 1 g PO QDAY 01/16/24 01/16/24 History capsule cholecalciferol (vitamin D3) 25 25 mcg PO QDAY 01/16/24 01/16/24 History mcg (1,000 unit) capsule cyanocobalamin (vitamin B-12) 1,000 mcg PO QDAY 01/16/24 01/16/24 History 1,000 mcg capsule meloxicam 15 mg tablet 15 mg PO QDAY 01/16/24 01/16/24 History trazodone 50 mg tablet 50 mg PO QDAY 01/16/24 01/16/24 History Have you fallen in the past year?: No PFSH Medical History (Updated 01/16/24 @ 08:51 by Gege Dumont) Osteoarthritis of left knee Left knee pain Surgical History Status post glaucoma surgery S/P knee replacement Finger joint replaced H/O: hemorrhoidectomy History of thyroidectomy History of hysterectomy Social History household members: spouse current occupational status: retired Smoking Status: Never smoker alcohol intake: never substance use type: does not use seatbelt use: always do you feel safe at home: Yes additional social history: - Dimitrios- Retired HPI HPI HPI: 78-year-old female presents due to positive Cologuard for diagnostic colonoscopy. Patient's last colonoscopy was at age 70 per patient negative. Patient states she has bowel movements daily denies any blood. Patient denies any chronic abdominal pain/nausea/vomiting/reflux. Patient denies any family history of colon cancer. Patient will be gone on a trip to [place] from January 19 through . ROS General General: No weight change, appetite, fatigue, colon cancer or breast cancer HEENT HEENT: Yes eye surgery; No difficulty swallowing, eye injury, swollen glands or hoarseness Endo Endocrine: Yes thyroid disease; No diabetes mellitus, thyroid cancer, Hair loss, heat intolerance or cold intolerance Skin Skin: No rash or changing moles Musc Musculoskeletal: Yes back problems and arthritis; No rheumatoid arthritis, gout or joint pain Cardio Cardiovascular: No murmur, pacemaker, heart disease, atrial fibrillation, high blood pressure, heart attack, heart stent, palpitations, shortness of breat with exertion or chest pain Psych Psychiatric: No depression, anxiety or hearing voices Resp Respiratory: No shortness of breath, No sleep apnea, No cough, No COPD, No asthma, No emphysema and No wheezing Gastro Gastrointestinal: No abdominal pain, No nausea or vomiting, No diarrhea, Yes constipation, No blood in stool, No acid reflux, No hemorrhoids, No ulcers, No gallbladder problem and No black,tarry stools Tony Hematologic: No blood thinners, No blood disorders, No bleeding, No anemia and No blood clots Neuro Neurologic: No numbness and No tingling Exam Const General: cooperative, healthy appearing, comfortable and no acute distress HENMT Head: normocephalic and atraumatic Neck Neck: supple Resp Effort & Inspection: normal respiratory effort Cardio Rate: regular rate GI Inspection: non-distended Palpation: soft and nontender Skin General: no rashes or lesions noted Neuro General: CN's II-XI intact bilaterally Extrem General: normal to inspection Psych Mental Status: mental status grossly normal Attitude: cooperative Assessment and Plan Assessment and Plan (1) Positive colorectal cancer screening using Cologuard test: Status: Acute Orders: Orders Colonoscopy 02/11/24 Plan I have discussed the above with the patient. I have offered the patient colonoscopy for evaluation. I have explained the risks/benefits of the procedure and described the procedure. I have discussed the risks with the patient, including but not limited to: infection, bleeding, perforation of the GI tract requiring emergency surgery, inability to complete the procedure, injury to any internal organs, complications of anesthesia, etc. - the patient understands and agrees to proceed. I have answered all the patient's questions to the patient's satisfaction and the patient has no further questions. The patient has been given instructions for the colon cleansing preparation. 1 day clears MiraLAX Dulcolax prep Jia Stephen M.D. Pager: [phone] [facility] [address] [place] [address], [facility], [address] [place] [address] Office: [phone] Coding Level of Care Code Off vis,new,level 3 Diagnoses Positive colorectal cancer screening using Cologuard test R19.5 Clinical Quality Measures Falls Risk Screening/Assistive Devices Have you fallen in the past year?: No 01/17/24901 <Electronically signed by Jia Stephen MD> Date Jia Stephen MD
--- NOTE | 2024-02-11 08:18 | PCM.PRE.AN2 ---
ASA Classification* ASA Classification ASA Classification: 2 Assessment & Plan Anesthesia* Anesthesia Assessment Anesthesia Assessment: Discussed sedation and/or anesthesia options, risks, benefits, and alternatives with patient/parents/legal guardian/POA. Questions invited. The patient/parents/legal guardian/POA seems to understand and agrees to proceed with anesthesia plan. Reviewed the physical assessment, medical history, allergy history and patient home medications list prior to surgery/procedure/anesthetic and documented any changes. Performed airway and anesthesia risk assessments. Anesthesia Type Anesthesia Type: MAC Anesthesia Focused Assessment* Airway Assessment Mouth opens: >3 cm Mallampati Score: II Focused Labs Anesthesia Preop lab: CBC WBC 7.1 K/mm3 (4.4-11.0) 12/26/23 13:44 RBC 4.90 M/mm3 (4.2-5.4) 12/26/23 13:44 Hgb 13.7 g/dL (12.0-15.0) 12/26/23 13:44 Hct 44.1 % (37-47) 12/26/23 13:44 Plt Count 277 K/mm3 (150-450) 12/26/23 13:44 CHEMISTRY Potassium 3.8 mmol/L (3.5-5.1) 09/17/23 11:11 Sodium 139 mmol/L (136-145) 09/17/23 11:11 BUN 15 mg/dL (7-18) 09/17/23 11:11 Creatinine 0.84 mg/dL (0.55-1.02) 09/17/23 11:11 Glucose 126 mg/dL (74-106) H 09/17/23 11:11 TSH 0.53 uIU/mL (0.358-3.74) 09/17/23 11:11 COAG Pre-Assessment Diagnosis/Proposed Procedure Planned Operative Procedure(s): CSCOPE Anesthesia History Anesthesia History - sales and marketing vice president: Anesthesia History - sales and marketing vice president Hx Hospitalization Yes: 10/2023 KNEE 02/07/24 09:58 REPLACEMENT @ [facility] Any Problems With Anesthesia No 02/07/24 09:58 Cholinesterase deficiency No 02/07/24 09:58 You/Your Family Experience No 02/07/24 09:58 fever (hyperthermia) with Relationship Recent Exposure to Contagious Disease Does patient have nerve No 02/07/24 09:58 stimulator Patient instructed to have device shut off --Does patient have Pacemaker or ICD? When Was Last Pacemaker Check QUESTION #4 FULL TEXT: You/Your Family Experience fever (hyperthermia) with Anesthesia Last Oral Intake Last Oral intake: Last Oral Intake NPO since Meds taken in AM with sips of water? Meds patient instructed to take am of surgery PONV PONV - sales and marketing vice president: PONV - sales and marketing vice president Female Yes 02/07/24 09:58 HX of Motion Sickness No 02/07/24 09:58 HX of N/V After Surgery No 02/07/24 09:58 Non-Smoker Yes 02/07/24 09:58 Duration of Surgery greater No 02/07/24 09:58 than 60 minutes Number of Risk Factors 2 02/07/24 09:58 PONV Score Moderate Risk 02/07/24 09:58 Height & Weight Height & Weight: Anesthesia: Height & Weight Height 5 ft 5 in 01/16/24 08:52 Respiratory Assessment Respiratory Assessment - sales and marketing vice president: Respiratory Tract Infection Hx - sales and marketing vice president Hx Respiratory Tract Infection No 02/07/24 09:58 STOP Sleep Apnea STOP Sleep Apnea - sales and marketing vice president: STOP Sleep Apnea - sales and marketing vice president Hx Hypertension Yes: CONTROLLED WITH MED 02/07/24 09:58 Hx Sleep Apnea No 02/07/24 09:58 CPAP BIPAP Do you snore loudly (louder No 02/07/24 09:58 than talking or can be heard Do you often feel tired/ No 02/07/24 09:58 fatigued/ sleepy during daytime? Has anyone observed you stop No 02/07/24 09:58 breathing during sleep? STOP Results Negative 02/07/24 09:58 QUESTION #5 FULL TEXT : Do you snore loudly (louder than talking or can be heard through closed doors)? 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 Specify any problems Hx of Preganancy in last 3 N/A 02/07/24 09:58 Months Nurse Filling Out Transfusion NBUCHER 02/07/24 09:58 & Questions: Date: 02/07/24 02/07/24 09:58 Time: 09:59 02/07/24 09:58 Patient unable to answer at this time (ie. confused, unrespo /Reproduction History /Reproductive History - sales and marketing vice president: /Reproductive Hx- sales and marketing vice president Hx Now No 02/07/24 09:58 Gestational Age (in weeks): EDC: Hx Hx Para Hx Section SAB No 02/07/24 09:58 Active Medications Active Medications: Current Medications Generic Name Dose Route Start Last Admin Trade Name Freq PRN Reason Stop Dose Admin Lactated Ringer's 1,000 mls @ 15 mls/hr 02/11/24 08:00 IV .Q48H TITO PFSH Medical History Loss of hearing Wears dentures History of steroid therapy Arthritis Thyroid disease Non-smoker History of edema Osteoarthritis of left knee Left knee pain Home Medications ?Medication ?Instructions ?Recorded ?Last Taken ?Type amlodipine 5 mg tablet 5 mg PO DAILY 02/12/23 Unknown History estradiol 0.075 mg/24 hr weekly 1 patch transdermal QWEEK 02/12/23 Unknown History transdermal patch (Climara) levothyroxine 100 mcg tablet 100 mcg PO DAILY 02/12/23 02/11/24 06:00 History (Synthroid) acetaminophen 650 mg 650 mg PO Q12H PRN pain 01/16/24 Unknown History tablet,extended release (Tylenol Arthritis Pain) ascorbic acid (vitamin C) 1,000 mg 1 g PO QDAY 01/16/24 Unknown History capsule cholecalciferol (vitamin D3) 25 25 mcg PO QDAY 01/16/24 Unknown History mcg (1,000 unit) capsule cyanocobalamin (vitamin B-12) 1,000 mcg PO QDAY 01/16/24 Unknown History 1,000 mcg capsule meloxicam 15 mg tablet 15 mg PO QDAY 01/16/24 Unknown History trazodone 50 mg tablet 50 mg PO QDAY 01/16/24 Unknown History Allergy/AdvReac Type Severity Reaction Status Date / Time amoxicillin (From Augmentin) Allergy Intermediate Rash Verified 02/07/24 09:56 clarithromycin (From Biaxin) Allergy Intermediate Rash Verified 02/07/24 09:56 clavulanic acid (From Allergy Intermediate Rash Verified 02/07/24 09:56 Augmentin) doxycycline Allergy Intermediate Hives Verified 02/07/24 09:56 Penicillins Allergy Intermediate Hives Verified 02/07/24 09:56 oxycodone (From Percocet) Allergy Mild Rash Verified 02/07/24 09:56 Sulfa (Sulfonamide Allergy Mild Other Verified 02/07/24 09:56 Antibiotics) quinapril AdvReac Intermediate Other Verified 02/07/24 09:56 Surgical History History of colonoscopy Status post glaucoma surgery S/P knee replacement Finger joint replaced H/O: hemorrhoidectomy History of thyroidectomy History of hysterectomy Social History household members: spouse current occupational status: retired Smoking Status: Never smoker alcohol intake: never substance use type: does not use seatbelt use: always do you feel safe at home: Yes additional social history: - Dimitrios- Retired Review of Systems (Anesthesia) ROS Narrative System reviewed and no additional complaints, except as documented.
[2024-02-11] MEDS: Lactated Ringers 1,000 ML 15 ML IV (08:22)
--- NOTE | 2024-02-11 08:58 | OP.COLON_ITS ---
Patient Name: Pham Perez Procedure Date: 02/11/2024 8:22 AM Date of : 1945 Age: 78 Procedure: Colonoscopy Indications: Positive Cologuard test Providers: Jia Stephen MD Referring MD: Venkata Patel Medicines: Monitored Anesthesia Care Patient Profile: This is a 78 year old female. Last Colonoscopy: 8 years ago. Complications: No immediate complications. Procedure: Pre-Anesthesia Assessment: - Prior to the procedure, a History and Physical was performed, and patient medications and allergies were reviewed. The patient's tolerance of previous anesthesia was also reviewed. The risks and benefits of the procedure and the sedation options and risks were discussed with the patient. All questions were answered, and informed consent was obtained. Prior Anticoagulants: The patient has taken no anticoagulant or antiplatelet agents. ASA Grade Assessment: Per anesthesia. After reviewing the risks and benefits, the patient was deemed in satisfactory condition to undergo the procedure. After I obtained informed consent, the scope was passed under direct vision. Throughout the procedure, the patient's blood pressure, pulse, and oxygen saturations were monitored continuously. The Colonoscope was introduced through the anus and advanced to the cecum, identified by the appendiceal orifice, ileocecal valve and palpation. The colonoscopy was performed without difficulty. The patient tolerated the procedure well. The quality of the bowel preparation was good. Scope In: 8:32:31 AM Scope Withdrawal Time 0 hours 15 minutes 15 seconds Scope Out: 8:52:37 AM Total Procedure Duration Time 0 hours 20 minutes 6 seconds Findings: Hemorrhoids were found on perianal exam. A 6 mm polyp was found in the ascending colon. The polyp was sessile. Polypectomy was attempted, initially using a piecemeal technique with a hot snare. Polyp resection was incomplete with this device. This intervention then required a different device and polypectomy technique. The polyp was removed with a cold biopsy forceps. Resection and retrieval were complete. The exam was otherwise without abnormality. A few small-mouthed diverticula were found in the sigmoid colon. Impression: - Hemorrhoids found on perianal exam. - One 6 mm polyp in the ascending colon, removed with a cold biopsy forceps. Resected and retrieved. - The examination was otherwise normal. Recommendation: - Discharge patient to home. - Resume previous diet. - Continue present medications. - Await pathology results. - Repeat colonoscopy in 3 years for surveillance after piecemeal polypectomy. Procedure Code(s): --- Professional --- 26590, Colonoscopy, flexible; with biopsy, single or multiple Diagnosis Code(s): --- Professional --- K64.9, Unspecified hemorrhoids D12.2, Benign neoplasm of ascending colon R19.5, Other fecal abnormalities CPT copyright 2021 [employer]. All rights reserved. The codes documented in this report are preliminary and upon certified vehicle fire investigator review may be revised to meet current compliance requirements. MD Jia Urena MD 02/11/2024 8:57:45 AM This report has been signed electronically. Number of Addenda: 0 Note Initiated On: 02/11/2024 8:22 AM
--- NOTE | 2024-02-11 08:58 | OP.CCLET_ITS ---
02/11/2024 Venkata Patel [address] [place] [address] Re : Colonoscopy procedure for Ph[facility] Dear Dr. Patel This procedure was performed on Sunday, February 11, 2024. My impressions and recommendations are as follows: Impressions : - Hemorrhoids found on perianal exam. - One 6 mm polyp in the ascending colon, removed with a cold biopsy forceps. Resected and retrieved. - The examination was otherwise normal. Recommendations : - Discharge patient to home. - Resume previous diet. - Continue present medications. - Await pathology results. - Repeat colonoscopy in 3 years for surveillance after piecemeal polypectomy. My findings are described in the full procedure note, which is enclosed. If I can be of further assistance, please feel free to contact me at Doctor phone number(s): , Work: . Sincerely, MD Jia Urena MD 02/11/2024 8:57:45 AM This report has been signed electronically.
--- NOTE | 2024-02-11 09:00 | COLBX_PTH ---
PATIENT: ODILON TEJADA LOC: EN U#:[id number] AGE/SX: 78/F ROOM: RE02/11/[address]: Dr. Jia Stephen MD : 1945 BED: DIS: 02/11/2024 SPEC #: [id number] RECD: 02/11/24 09:21 STATUS: RADHA ETHAN #: [id number] BRINDA: 02/11/24 09:[address]: Jia Stephen DEPT: SURGICAL PATHOLOGY RECD BY: Allyn Klein ENTERED: 02/11/24 11:02 SP TYPE: COLON BX OTHR DR: Dr. Venkata Patel MD Tissues: Ascending colon Procedures: Surgery Specimen Level IV HEADER OPERATION: Colonoscopy with biopsy and polypectomy PRE-OP DIAGNOSIS: Positive colorectal cancer screening using Cologuard test TISSUE SUBMITTED: Ascending colon biopsy polyp and hot snare MICROSCOPIC DIAGNOSIS Ascending colon polyp, biopsy: Fragments of tubular adenoma. AM.mr 02/12/2024 MICROSCOPIC DESCRIPTION Slides are reviewed. GROSS DESCRIPTION Received in fixative is one container labeled with the patient's name and designated Ascending colon polyp biopsy. The specimen consists of multiple irregular fragments of light choe soft tissue that in aggregate measure 1.5 x 0.5 x 0.1 cm. The specimen is totally submitted in one cassette. 02/11/2024 TC:5 CPT:18042
--- NOTE | 2024-02-11 09:00 | PCM.POST.ANE ---
Anesthesia: Postop Eval I Current Vital Signs Temperature: 97.5 F Pulse Rate: 76 Blood Pressure: 125/75 Respiratory Rate: 18 Pulse Ox: 97 Oxygen Delivery Method: Room Air Assessment Airway patent: Yes Spontaneous unlabored respirations: Yes Mental status: Asleep nausea: No Vomiting: No Anesthesia Complication: No Fluid Hydration Crystalloid volume administer (ml): 600 Total IV fluid infused: 600 Progress Note Anesthesia document: Postop Eval 1 completed: Yes
--- NOTE | 2024-02-11 10:49 | PCM.POSTANE2 ---
Anesthesia Postop Eval I Sum Postop Eval Completion status Anesthesia document: Postop Eval 1 completed: Yes Anesthesia Postop Eval I Summary Anesthesia Postop Eval I Summary: Anesthesia Postop Eval I: Assessment Summary Airway patent Yes 02/11/24 09:01 [email or web address] Spontaneous unlabored Yes 02/11/24 09:01 [email or web address] respirations Mental status Asleep 02/11/24 09:01 [email or web address] nausea No 02/11/24 09:01 [email or web address] Vomiting No 02/11/24 09:01 [email or web address] Anesthesia Postop Eval I: Fluid Summary Crystalloid volume administer 600 02/11/24 09:01 [email or web address] (ml) Colloids volume administered ( ml) Blood Product volume administered (ml) Total IV fluid infused 600 02/11/24 09:01 [email or web address] Anesthesia Postop Eval I: Summary Notes Anesthesia Complication No 02/11/24 09:01 [email or web address] Anesthesia Complication Comment: Post-operative progress note Anesthesia: Postop Eval II Evaluation Mental status: Awake Pain Level: 0 nausea: No Vomiting: No
== END 2024-02-11 09:42 | disposition home or self-care (01) ==
LOC: EN 07:47 → AC 07:48
PROVIDERS: PCP Family Medicine; Referring Provider Family Medicine; Visit Provider Surgery
PROC: 0DJD8ZZ Inspection of Lower Intestinal Tract, Via Natural or Artificial Opening Endoscopic (ICD-10-PCS; CPT 45378; principal; 2024-02-11 08:55)
DX: R19.5 Other fecal abnormalities (principal); K63.5 Polyp of colon; K64.9 Unspecified hemorrhoids; Z96.659 Presence of unspecified artificial knee joint; Z90.710 Acquired absence of both cervix and uterus; K57.30 Diverticulosis of large intestine without perforation or abscess without bleeding
CPT/HCPCS: 45380; 88305; J7120; J2405

== ENCOUNTER 2024-02-14 11:00 | Outpatient (RCR) | payer MEDICARE, SELFPAY ==
--- NOTE | 2023-11-19 19:59 | HP.PTEVAL_ITS ---
Patient's Visit Information Visit Information Visit Information: ODILON TEJADA is a 78 year old F referred to Physical Therapy by Dr. 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 Date of Evaluation: 11/16/23 Physical Therapist: Bre Roy PT, Cert MDT Visit Plan Frequency: 2-3x /Week Duration: 4-6 Weeks Plan: GAIT TRAINING. L LE ROM, STRETCHING AND STRENGTHENING TO HELP MEET SET GOALS S/P L TKR. MODALITIES TO REDUCE PAIN AND SWELLING. MANUAL THERAPY TO IMPROVE PATELLAR MOBILITY. HEP INSTRUCTION. Subjective Subjective: Work/Leisure: RETIRED. Present symptoms: LEFT KNEE PAIN AND SWELLING. A LITTLE BIT OF PAIN INTO THE L B[place]. LOW BACK HAS BEEN ACHING BECAUSE I'M NOT WALKING STRAIGHT. A LITTLE BIT OF NUMBNESS IN THE KNEE. Present since: FEB 2023 Pain Scale: WORST 8/10, LEAST 2-3/10 Currently: 3/10 Is it getting better, worse or staying the same: GETTING BETTER Commenced as a result of: JUST WALKING IN THE MALL AND GOT SUDDEN PAIN IN LEFT KNEE FOR NO APPARENT REASON. DX'D WITH BAKERS CYST BY DR. MYERS. REFERRED TO DR. DIGGS. THEN SAW DR. GOINS AT [facility]. THOUGHT SHE NEEDED A BAKERS CYST DRAINED BUT WAS TOLD SHE NEEDED A KNEE REPLACEMENT. SHE CONSULTED WITH DR. MYERS AGAIN. SHE WENT TO [place] FOR THE WINTER BUT WASN'T VERY ACTIVE AND HER KNEE DID OK. IN JUN SHE DID A CRUISE AND DID A LOT OF WALKING. THAT SET IT OFF AND SHE WENT TO [facility] IN [place]. PRIOR TO SEEING [facility] THE BAKERS CYST RUPTURED AND HER KNEE REALLY SWELLED UP. THERE SHE WAS DX'D WITH A TORN MENISCUS. JULY 2023 SHE REC'D A CORTISONE SHOT BUT IT DIDN'T REALLY HELP. WHEN SHE RETURNED HOME SHE CONSULTED WITH DR. DE PAZ AND AFTER WAITING THE RECOMMENDED TIME DUE TO HAVING THE CORTISONE SHOT SHE HAD THE TKR 10/23/23. PATIENT REPORTS SHE WAS GOING ALONG FINE UNTIL FEB 2023 WHEN HER KNEE GAVE OUT WALKING IN THE MALL. Worse: PRLONGED STANDING AND WALKING Better: ICE MACHINE, PAIN MEDS, ELEVATION, GENTLE EX AND MOTION, SURGICAL STOCKINGS AT NIGHT Disturbed sleep: YES Previous history/Previous treatment: L KNEE HISTORY UNREMARKABLE Treatment this episode: IN-PATIENT PROCEEDURE - ONE NIGHT STAY THEN HOME PT UNTIL D/C 11/07 WITH SURGICAL PO FOLLOW UP 11/09/23 AND US TO CHECK FOR BLOOD CLOT THAT DATE AND WAS NEGATIVE. Gait: BROUGHT WALKER TODAY BUT DOES NOT USE WALKER AT HOME. USES CART IN [place] AND WALKS IN PARKING LOT WITHOUT ANYTHING. HASN'T BEEN USING A CANE. FEELS AWKWARD WITH A CANE. NO FALLS. 3 STEPS INTO HOUSE GOING ONE STEP AT A TIME AND NOT HAVING TROUBLE WITH THEM. Bowel or Bladder Dysfunction: NO Accidents: NO Unexplained weight loss: NO Imaging: X-RAY 11/09/23 LOOKED GOOD PER PATIENT REPORT PMH/Recent major surgery: HTN, HYPOTHYROIDISM Objective Objective: GAIT: THIS PATIENT AMBULATES INDEP'LY INTO PT TODAY WITH A FWW, DECREASED CADANCE AND A MILD LIMP ON THE LLE. NO LOB. WOMAC score: 63/96 TU.86 SEC WITH FWW Girth L Patella 44 cm Girth 6 inch suprapatella 61.5 cm Girth 6 inch below patella 48.5 cm L knee flexion AROM: 93 degrees L knee ext AROM: -19 degrees L knee flex MMT: 16.5#, R 24.2# L knee ext MMT: 20.7#, R 27.3# L hip flex MMT: 12.3 #, R 21.7# MIRIAN ANKLE MMT: 5/5. Sensory deficit: L LE LIGHT TOUCH SENSATION GROSSLY INTACT Palpation: DECREASED PATELLAR MOBILITY. INCISION LOOKS GOOD WITHOUT ANY SIGNS OF INFECTION. Balance/Special Test Scores WOMAC Total Score: 63 WOMAC Percentatge: 34.3800 Goals Goal 1:: PATIENT WILL HAVE DECREASED EDEMA IN RLE SYMMETRICAL TO LLE. Goal Time Frame: 6-8 Weeks Goal 2:: PATIENT WILL HAVE INCREASED R KNEE ROM TO AT LEAST 0-120 DEG FLEXION. Goal Time Frame: 6-8 Weeks Goal 3:: PATIENT WILL COMPLETE TUG IN < 15 SECS WITHOUT AD TO DEMONSTRATE IMPROVED GAIT STABILITY Goal Time Frame: 6-8 Weeks Goal 4:: PATIENT WILL HAVE NORMAL GAIT PATTERN WITHOUT USE OF AD. Goal 5:: PATIENT WILL BE ABLE TO NEGOTIATE STEPS WITH 1 HR WITH RECIPROCAL PATTERN WITHOUT LIMITATIONS. Goal Time Frame: 6-8 Weeks Goal 6:: PATIENT WILL SCORE AT LEAST 10 POINTS BETTER ON WOMAC Goal Time Frame: 6-8 Weeks Rehabilitation Potential Physical Therapy Diagnosis: PATIENT HAS SIGNS AND SYMPTOMS CONSISTENT WITH R TKA. SHE HAS SUBSEQUENT HYPOMOBILITY, WEAKNESS, DIFFICULTY WALKING AND INCREASED PAIN. SHE WOULD BENEFIT FROM PT TO ADDRESS THE ABOVE LIMITATIONS TO PROGRESS BACK TO ALL RECREATIONAL ACTIVITIES WITHOUT LIMITATIONS. Rehabilitation Potential: Good Anticipated Interventions Patient/Client Instruction: Educate patient on: Condition, Plan of Care and Risk Factors For the Purpose of:: To improve self management Therapeutic Exercise to Include: Strength training, Flexibilty training, Gait and locomotor training and Neuromotor development For the Purpose of:: To decrease pain, To increase ROM, To improve muscle performance and motor function, To increase tolerance to activity/condition/position, To improve ability of physical actions for home/community/work/leisure, To improve gait and locomotor functions, To increase flexibility/ROM and To improve self management Manual Therapy Techniques to Include: Mobilization and Soft tissue mobilization For the Purpose of:: To decrease swelling/inflammation and To improve muscle performance and motor function Cryotherapy (ice pack, ice massage): Yes Vasopneumatic device: Yes For the Purpose of:: To decrease pain and To decrease swelling/inflammation Text: Thank you for the opportunity to evaluate your patient. For Medicare and Medicare HMO plans, please review the plan of care and approve it. It will need to be FAXED BACK to us at [phone] for Medicare purposes. For Medicare only, by signing this I certify the plan of care. Please let me know if there are questions or concerns regarding this plan of car e. Physician Signature: Date:
--- NOTE | 2023-12-13 11:34 | HP.PTREVAL_ITS ---
Re-Evaluation Intro: Dr. Bassam Parra MD, It has been my pleasure to treat ODILON DAVIS WALKERLY over the last 9 visits for OA L KNEE, S/P TKA 10/23/23. Please see the progress note below for an update on the physical therapy plan of care! Subjective Subjective: PATIENT REPORTS SHE IS WALKING BETTER AND ABLE TO GET AROUND WITHOUT ANY AD'S NOW. STATES SHE HAS BEEN DOING A LOT OF STEPS AND SOMETIMES DOESN'T NEED TO USE A HR. STATES SHE HASN'T HAD TO USE ANY PAIN MEDS OTHER THAN TYLONOL FOR AWHILE UNTIL THE OTHER DAY WHEN SHE TWISTED HER KNEE. SHE STATES SHE TWISTED IT GETTING OUT OF THE CAR (SAT 12/08/23) AND THEN SHE COULD BARELY GET IN THE HOUSE AFTER SHE DID THAT. THE REST OF THE EVENING SHE RESTED IT AND ICED IT. BETTER THE NEXT DAY AND ACTUALLY WALKED A MILE THE FOLLOWING DAY. FEELS SHE HAS RECOVED FROM TWISTING IT FOR THE MOST PART AT THIS POINT BUT LOST SOME GROUND BENDING IT AND IT IS STILL SWOLLEN AND TENDER ON THE OUTSIDE. Objective Objective/Function: PATIENT WITH A LITTLE BIT OF INCREASED EDEMA AT [place] TODAY AND DECREASED KNEE EXT ROM POST TWISTING HER KNEE GETTING OUT OF THE CAR 5 DAYS AGO. OVER-ALL SHE IS IMPROVING IN TERMS OF STRENGTH AND FUNCTION AND IS A GOOD CANDIDATE TO CONTINUE PT. PATIENT IS AGREEABLE. UPON EXAM TODAY: GAIT: THIS PATIENT AMBULATES INDEP'LY INTO PT TODAY WITHOUT ANY ASSISTIVE DEVICES OR LOB BUT WALKING ON BENT LLE. WOMAC score: 40/96 Girth L Patella 44.5 cm Girth 6 inch suprapatella 53 cm Girth 6 inch below patella 36 cm L knee flexion AROM: 116 degrees L knee ext AROM: -10 degrees STRENGTH MEASURED IN AVG PEAK FORCE LBS (R LEG PER EVAL): L knee flex: 25.4#, R 24.2# L knee ext: 18.7#, R 27.3# L hip flex: 22.0 #, R 21.7# MIRIAN ANKLE MMT: 5/5. Sensory deficit: NO STEPS: PATIENT IS ABLE TO ASCEND AND DESCEND STEPS RECIPROCALLY WITH ONE HR X ONE FLIGHT IN CLINIC TODAY. Palpation: MILD DECREASED PATELLAR MOBILITY. INCISION LOOKS GOOD WITHOUT ANY SIGNS OF INFECTION. Plan Plan Plan: CONTINUE PT 2X'S A WK X 5 WKS GAIT TRAINING. L LE ROM, STRETCHING AND STRENGTHENING TO HELP MEET SET GOALS S/P L TKR. MODALITIES TO REDUCE PAIN AND SWELLING. MANUAL THERAPY TO IMPROVE PATELLAR MOBILITY. HEP INSTRUCTION. Balance/Gait/Functional tests Balance/Special Test Scores WOMAC Total Score: 40 WOMAC Percentage: 56.5300 Goals Goals Goal 1:: PATIENT WILL HAVE DECREASED EDEMA IN RLE SYMMETRICAL TO LLE. Goal Time Frame: 6-8 Weeks Goal Progress: Progressing Goal 2:: PATIENT WILL HAVE INCREASED R KNEE ROM TO AT LEAST 0-120 DEG FLEXION. Goal Time Frame: 6-8 Weeks Goal Progress: Progressing Goal 3:: PATIENT WILL COMPLETE TUG IN < 15 SECS WITHOUT AD TO DEMONSTRATE IMPROVED GAIT STABILITY Goal Time Frame: 6-8 Weeks Goal Progress: Progressing Goal 4:: PATIENT WILL HAVE NORMAL GAIT PATTERN WITHOUT USE OF AD. Goal Progress: Progressing Goal 5:: PATIENT WILL BE ABLE TO NEGOTIATE STEPS WITH 1 HR WITH RECIPROCAL PATTERN WITHOUT LIMITATIONS. Goal Time Frame: 6-8 Weeks Goal Progress: Goal Met Goal 6:: PATIENT WILL SCORE AT LEAST 10 POINTS BETTER ON WOMAC Goal Time Frame: 6-8 Weeks Goal Progress: Goal Met Anticipated Interventions Anticipated Interventions Patient/Client Instruction: Educate patient on: Condition, Plan of Care and Risk Factors For the Purpose of:: To improve self management Therapeutic Exercise to Include: Strength training, Flexibilty training, Gait and locomotor training and Neuromotor development For the Purpose of:: To decrease pain, To increase ROM, To improve muscle performance and motor function, To increase tolerance to activity/condition/position, To improve ability of physical actions for home /community/work/leisure, To improve gait and locomotor functions, To increase flexibility/ROM and To improve self management Manual Therapy Techniques to Include: Mobilization and Soft tissue mobilization For the Purpose of:: To decrease swelling/inflammation and To improve muscle performance and motor function Cryotherapy (ice pack, ice massage): Yes Vasopneumatic device: Yes For the Purpose of:: To decrease pain and To decrease swelling/inflammation Re-Evaluation Ending Re-evaluation ending: Please do not hesitate to contact me at [phone] by phone or if you have questions or concerns regarding this new plan of care! Sincerely, Bre Roy, PT, Cert MDT
--- NOTE | 2024-01-17 15:44 | HP.PTREVAL_ITS ---
Re-Evaluation Intro: Dr. 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 Please see the progress note below for an update on the physical therapy plan of care! Subjective Subjective: LEAVING FOR 16 DAY TRIP SUNDAY. STATES SHE DOES NOT SEE ANY REASON TO SEE A DOCTOR BEFORE SHE GOES. PATIENT REPORTS HER L FOOT IS FEELING BETTER BUT YESTERDAY SHE GOT A SUDDEN PAIN IN HER L KNEE WHEN SHE STEPPED OUT OF THE CAR RESULTING IN INCREASED PAIN AND SWELLING EVER SINCE. SHE REPORTS TAKING TYLONOL, ICING IT AND WEARING HER COMPRSSION STOCKING WITH MINIMAL RELIEF. THE BIKE, LEG PRESS AND HIP MACHINE LOOSENED IT UP A LITTLE BIT TODAY. FAR HER FOOT GOES SHE STATES SHE HAS 0-1/10 PAIN WITH WALKING LONG SHE WAS SUPPORTIVE SHOES OR SANDLES. UP TO 7-8/10 FOOT PAIN WALKING BAREFOOT. PATIENT REPORTS IF SHE STILL HAS PAIN AFTER SHE GETS BACK FROM VACATION SHE WILL FOLLOW UP WITH THE DOCTOR ABOUT FURTHER TESTING BUT SHE WANTS TO WAIT UNTIL SHE RETURNS. SHE REPORTS HER KNEE WAS DOING WELL AND IMPROVING UNTIL SHE STEPPED OUT OF THE CAR AND HURT IT YESTERDAY. Objective Objective/Function: THIS PATIENT AMBULATES INDEP INTO PT RECHECK TODAY WITH A MILD LIMP ON SLIGHTLY BENT L KNEE WITHOUT AD. SHE PRESENTS WITH INCREASED L KNEE PAIN, SWELLING AND STIFFNESS BUT DECREASED L FOOT/TOE TENDERNESS. THIS PT RECOMMENDED AD AT ALL TIMES DUE TO THIS BEING THE SECOND RECENT INCIDENT OF L KNEE GIVING OUT UNEXPECTEDLY. PATIENT REFUSING NEED FOR GAIT TRAINING AND STATES SHE DOES GOOD WITH A WALKING STICK BUT NOT CANE. SHE DECLINED MMT/STRAIN GAUGE TESTING AND STAIR TESTING TODAY DUE TO INCREASED PAIN BUT WOULD LIKE TO RESUME PT UPON RETURN FROM VACATION. UPON EXAM TODAY: WOMAC score: 25/96 Girth L Patella 40.5 cm Girth 6 inch suprapatellar 53 cm L knee flexion AROM: 114 degrees L knee ext AROM: -2 degrees STRENGTH: Patient deferred but able to actively flex hip against gravity, extend knee to ~-5 deg against gravity, demo good Active ROM of ankle and toes. Sensory deficit: NO STEPS: PATIENT DECLINED TESTING. Palpation: GOOD PATELLAR MOBILITY. FULLY HEALED INCISION. NO ACUTE KNEE TENDERNESS. THERE IS STILL TENDERNESS WITH PALPATION OF THE DISTAL 2ND AND 3RD METATARSAL PHALANGEAL JTS BUT TRACTION OF THE 2ND AND 3RD PHALANGES NO LONGER CAUSE PAIN. THERE IS STILL SOME MILD SWELLING BUT NOT BRUISING ON THE PLANTAR SURFACE IN THE REGION OF THE 2ND AND 3RD MTP JTS. Plan Plan Plan: RE-ASSESSMENT OF L KNEE AND L FOOT UPON RETURN FROM VACATION. Balance/Gait/Functional tests Balance/Special Test Scores WOMAC Total Score: 25 WOMAC Percentage: 73.9600 Goals Goals Goal 1:: PATIENT WILL HAVE DECREASED EDEMA IN RLE SYMMETRICAL TO LLE. Goal Time Frame: 6-8 Weeks Goal Progress: Progressing Goal 2:: PATIENT WILL HAVE INCREASED R KNEE ROM TO AT LEAST 0-120 DEG FLEXION. Goal Time Frame: 6-8 Weeks Goal Progress: Progressing Goal 3:: PATIENT WILL COMPLETE TUG IN < 15 SECS WITHOUT AD TO DEMONSTRATE IMPR YUMIKO GAIT STABILITY Goal Time Frame: 6-8 Weeks Goal Progress: Progressing Goal 4:: PATIENT WILL HAVE NORMAL GAIT PATTERN WITHOUT USE OF AD. Goal Progress: Progressing Goal 5:: PATIENT WILL BE ABLE TO NEGOTIATE STEPS WITH 1 HR WITH RECIPROCAL PATTERN WITHOUT LIMITATIONS. Goal Time Frame: 6-8 Weeks Goal Progress: Goal Met Goal 6:: PATIENT WILL SCORE AT LEAST 10 POINTS BETTER ON WOMAC Goal Time Frame: 6-8 Weeks Goal Progress: Goal Met Anticipated Interventions Anticipated Interventions Patient/Client Instruction: Educate patient on: Condition, Plan of Care and Risk Factors For the Purpose of:: To improve self management Therapeutic Exercise to Include: Strength training, Flexibilty training, Gait and locomotor training and Neuromotor development For the Purpose of:: To decrease pain, To increase ROM, To improve muscle performance and motor function, To increase tolerance to activity/condition/position, To improve ability of physical actions for home/community/work/leisure, To improve gait and locomotor functions, To increase flexibility/ROM and To improve self management Manual Therapy Techniques to Include: Mobilization and Soft tissue mobilization For the Purpose of:: To decrease swelling/inflammation and To improve muscle performance and motor function Cryotherapy (ice pack, ice massage): Yes Vasopneumatic device: Yes For the Purpose of:: To decrease pain and To decrease swelling/inflammation Re-Evaluation Ending Re-evaluation ending: Please do not hesitate to contact me at [phone] by phone or if you have questions or concerns regarding this new plan of care! Sincerely, Bre Roy, PT, Cert MDT
== END 2024-02-14 19:00 | disposition home or self-care (01) ==
LOC: PT 11:00
PROVIDERS: PCP Family Medicine; Referring Provider Orthopaedic Surgery; Visit Provider Orthopaedic Surgery
DX: M17.12 Unilateral primary osteoarthritis, left knee (principal); Z96.652 Presence of left artificial knee joint
CPT/HCPCS: 97016; 97035; 97110; 97140; 97162; 97530

== ENCOUNTER → 2024-02-18 | Outpatient (CLI) | payer MEDICARE, SELFPAY ==
--- NOTE | 2024-02-18 10:50 | RAD_ITS ---
INDICATION: metatarsalgia left foot EXAMINATION/TECHNIQUE: X-RAY - LEFT XR Foot Min 3 Views 3 VIEWS COMPARISON: No relevant prior comparison study available FINDINGS: SOFT TISSUES: No soft tissue swelling or gas. No radiopaque foreign body. BONES/JOINTS: Probable old fracture of the proximal phalanges of the third and fourth toes no evidence of acute fracture or dislocation. Normal alignment. The joint spaces are within normal limits. No sclerotic or destructive changes observed. RAD/Foot min 3 Views IMPRESSION: No evidence of acute osseous changes. Electronically Signed: Marty Hogan MD at 11:25 EDT ,
== END | disposition home or self-care (01) ==
PROVIDERS: PCP Family Medicine; Referring Provider Family Medicine; Visit Provider Family Medicine
DX: M77.42 Metatarsalgia, left foot (principal)
CPT/HCPCS: 73630

== ENCOUNTER → 2024-04-14 | Outpatient (CLI) | payer MEDICARE, SELFPAY ==
--- NOTE | 2024-04-14 11:01 | US_ITS ---
STUDY: ULTRASOUND BREAST - RIGHT REASON FOR EXAM: Female, 78 years old. Prior aspiration of the right breast. TECHNIQUE: Axial and longitudinal images of the RIGHT breast were performed with a high resolution ultrasound transducer. # OF IMAGES: 18 COMPARISON: Comparison is made with prior sonogram dated September 18, 2023. FINDINGS: RIGHT Breast: Persistent 1.6 cm x 1.5 signed by 1 cm complex cystic structure at the 3:00 position breast at 3 cm from the nipple. Increased peripheral vascularity is seen. Dilated retroareolar ducts. US/Breast Limited Unilateral IMPRESSION: Stable examination. Correlation with the pathology from prior aspiration recommended. ASSESSMENT CATEGORY: BIRADS Category 2: Benign. A letter regarding these results will be sent to the patient by the facility within 30 days. Electronically Signed: Parth Alvarenga MD at 15:14 EST ,
== END | disposition home or self-care (01) ==
PROVIDERS: PCP Family Medicine; Referring Provider Surgery; Visit Provider Surgery
DX: R92.8 Other abnormal and inconclusive findings on diagnostic imaging of breast (principal)
CPT/HCPCS: 76642

== ENCOUNTER → 2024-04-22 | Outpatient (CLI) | payer MEDICARE, SELFPAY ==
--- NOTE | 2024-04-22 11:28 | RAD_ITS ---
EXAM: XR CHEST, 2 VIEWS CLINICAL INDICATION: COUGH TECHNIQUE: Frontal and lateral views of the chest. COMPARISON: 08/27/2017. FINDINGS: LUNGS AND PLEURAL SPACES: Unremarkable. No consolidation or edema. No pneumothorax. No effusion. HEART: Unremarkable. Cardiac silhouette not enlarged. MEDIASTINUM: Central airways and mediastinal contour are unremarkable. BONES/JOINTS: Unremarkable. No acute fracture. SOFT TISSUES: Unremarkable. RAD/Chest PA and Lateral IMPRESSION: No radiographic evidence of acute cardiopulmonary disease. Electronically Signed: Bryan Oviedo MD at 4:18 EST ,
[2024-04-22 15:32] LABS: Absolute Lymphocyte Count 1.46 X10^3/uL (0.83-4.51); Absolute Neutrophil Count 3.5 X10^3/uL (2.0-7.7); Basophil% 1.7 % (0-1); Eosinophil# 0.18 X10^3/uL; Eosinophils% 3.1 % (0-5); Hematocrit 45.2 % (37-47); Hemoglobin 14.4 g/dL (12.0-15.0); Lymphocyte # 1.46 X10^3/ul (0.83-4.51); Lymphocyte % 25.4 % (19-41); Mean Corp Hgb Conc 31.9 g/dL (32-36); Mean Corpuscular Hgb 27.9 pg (27.0-32.0); Mean Corpuscular Volume 87.6 fL (81-99); Mean Platelet Vol. 10.4 fl (6.2-12.0); Monocyte# 0.48 X10^3/uL; Monocyte% 8.4 % (0-10); NRBC Flagged by Analyzer 0 % (0-5); Neutrophil # 3.51 X10^3/uL (2.7-7.7); Neutrophil % 61.2 % (47-70); Platelet Count 243 K/mm3 (150-450); RBC Distribution Width CV 14.2 % (11.6-14.6); RBC Distribution Width SD 45.3 fl (35.1-43.9); Red Blood Count 5.16 M/mm3 (4.2-5.4); White Blood Count 5.7 K/mm3 (4.4-11.0)
[2024-04-22 17:32] LABS: International Normalized Ratio 1.1
[2024-04-22 17:33] LABS: Partial Thromboplast Time 32.7 Seconds (24.1-36.2)
== END | disposition home or self-care (01) ==
LOC: MTLAB 11:27
PROVIDERS: PCP Family Medicine; Referring Provider Family Medicine; Visit Provider Family Medicine
DX: Z01.812 Encounter for preprocedural laboratory examination (principal); R05.3 Chronic cough
CPT/HCPCS: 36415; 71046; 85025; 85610; 85730

== ENCOUNTER → 2024-12-25 | Outpatient (CLI) | payer MEDICARE, SELFPAY ==
--- NOTE | 2024-12-25 12:00 | BI_ITS ---
EXAM: SCRN MAMM (CAD)W/YARITZA BILAT DATE: 12/25/2024 CLINICAL HISTORY: F, Age 79 y/o , SCREEN FOR BREAST CANCER No family history. TECHNIQUE: SCRN MAMM (CAD)W/YARITZA BILAT COMPARISON: Prior exam(s) dated December 17, 2023.. FINDINGS: TISSUE DENSITY: The breasts are heterogeneously dense, which may obscure small masses. Bilateral Breast Mammographic Findings: No significant masses, calcifications or other abnormalities are identified. No suspicious masses, areas of developing architectural distortion, or suspicious calcifications. There has been no significant interval change. BI/SCRN MAMM (CAD)W/YARITZA BILAT IMPRESSION: Stable examination. OVERALL FINAL ASSESSMENT BI-RADS 2: BENIGN RECOMMENDATION: Routine annual follow-up in 1 Year A letter with findings and recommendations will be mailed to the patient. Reading Location: [place] [address]
== END | disposition home or self-care (01) ==
LOC: OPBI 11:53
PROVIDERS: PCP Family Medicine; Referring Provider Nurse Practitioner Women's Health; Visit Provider Nurse Practitioner Women's Health
DX: Z12.31 Encounter for screening mammogram for malignant neoplasm of breast (principal)
CPT/HCPCS: 77063; 77067

== ENCOUNTER 2025-02-06 11:22 | Outpatient (CLI) | payer MEDICARE, SELFPAY ==
--- OUTSIDE RECORDS SUMMARY | 2025-02-06 11:45 | XMS RPT_ITS | CCD ---
Author Organization [facility] CliniSyor Care Team Providers Care Detective Homicide Squad Name Role Phone [employer] COMMERCIAL PROPERTY MANAGER, Ignacia N Unavailable [phone] [employer] COMMERCIAL PROPERTY MANAGER, Ignacia N Unavailable Dr. Clive Patel Primary Care Provider Dr. Clive Patel Referring Provider MD Nicolas Abad Attending Provider Dr. Sim Paez Attending Provider LOUIS FARMER, CLIVE Pickett Attending Unavailable LOUIS FARMER, CLIVE Pickett Primary Care Unavailable CLIVE PATEL MD Primary Care Physician Dr. Clive Patel MD Primary Care Provider Dr. Clive Patel MD Referring Provider [phone] Shelby WEB MARKETING INTERN-CCande Attending Provider Stephenie WEB MARKETING INTERN-CSunday Attending Provider Shelby WEB MARKETING INTERN-CCande Referring Provider Clive Patel Referring Unavailable Patel, Clive Primary Care Unavailable Robotham, Jia Consulting Unavailable Robotham, Jia Attending Unavailable YEATER, AMAYA Consulting Unavailable Patel, Clive Primary Care Unavailable Patel, Clive Attending Unavailable Patel, Clive Referring Unavailable Shelby WEB MARKETING INTERNCande Attending Unavailable Shelby WEB MARKETING INTERNCande Referring Unavailable Patel, Clive Primary Care Unavailable Patel, Clive Primary Care Unavailable Bassam Parra Attending Unavailab Bassam Gibson Referring Unavailab samuel Patel, Clive Referring Unavailable Patel, Clive Primary Care Unavailable Patel, Clive Attending Unavailable Patel, Clive Primary Care Unavailable Robotham, Jia Attending Unavailable Robotham, Jia Referring Unavailable Patel, Clive Referring Unavailable Patel, Clive Primary Care Unavailable Robotham, Jia Attending Unavailable Patel, Clive Primary Care Unavailable Patel, Clive Referring Unavailable Stephenie WEB MARKETING INTERN, Sunday Canales Attending Unavailable Augustin BLOCK, Jolene Baca Attending Unavail able Patel, Clive Referring Unavailable Patel, Clive Primary Care Unavailable Patel, Clive Referring Unavailable Patel, Clive Primary Care Unavailable Jia Stephen Attending Unavailable Shelby HWANG, Cande Attending Unavailable Patel, Clive Primary Care Unavailable Patel, Clive Referring Unavailable Allergies Allergy Classification Reported Allergen(s) Allergy Type Date of Onset Reaction(s) Facility (3 sources) Amoxicillin Drug Allergy 5 [facility] (3 sources) Clarithromycin Drug Allergy 5 [facility] (3 sources) Clavulanate Drug Allergy 5 [facility] (3 sources) Doxycycline Drug Allergy 5 [facility] (3 sources) oxyCODONE Drug Allergy 5 [facility] (3 sources) Penicillins Allergy to substance 5 [facility] (3 sources) quinapril Drug Allergy 5 [facility] Comment on above: cough (3 sources) Sulfonamides (Antibiotic) Allergy to substance 5 [facility] (1 source) Amoxicillin Drug Allergy 5 [facility] (1 source) Clarithromycin Drug Allergy 5 [facility] (1 source) Clavulanate Drug Allergy 5 [facility] (1 source) Doxycycline Drug Allergy 5 [facility] (1 source) oxyCODONE Drug Allergy 5 [facility] (1 source) Penicillins Drug allergy (disorder) 5 [facility] (1 source) quinapril Drug Allergy 5 [facility] (1 source) Sulfonamides (Antibiotic) Drug allergy (disorder) 5 [facility] Medications Current Medications Medication Drug Class(es) Dates Sig (Normalized) Sig (Original) 8 hr acetaminophen 650 mg extended release oral tablet (5 sources) Start: 01-16-2024 take 1 tablet by mouth every twelve hours as needed for pain Acetaminophen (Tylenol Arthritis Pain) 650 mg tablet extended release Active 650 mg PO Q12H as needed for pain January 16, 2024 12:00am Start: 01-20-2016 TYLENOL 325 MG TABS ACETAMINOPHEN [id number] Bryan Marte amLODIPine 5 mg oral tablet (6 sources) Dihydropyridine Calcium Channel Chapin Start: 02-12-2023 take 1 tablet by mouth once daily Amlodipine 5 mg tablet Active 5 mg PO DAILY February 12, 2023 12:00am azithromycin 250 mg oral tablet (10 sources) Macrolide Antimicrobial Start: 12-07-2024 take 2-10 tablets by mouth once daily Azithromycin 250 mg tablet Active 0 PO .COMPLEX 11 0 December 07, 2024 12:03pm take 500 mg today (day 1), then 250 mg for days 2-10 PO Start: 01-14-2024 End: 01-24-2024 Azithromycin (Zithromax Z-Pa k) 250 mg tablet Discontinued 0 PO .COMPLEX 11 10 0 January 14, 2024 12:00am January 23, 2024 12:00am January 24, 2024 12:04am For 250 mg dose pack: take 500 mg today (day 1), then 250 mg for 9 days (days 2-10) PO Start: 10-04-2023 End: 11-06-2023 take 2-10 tablets by mouth once daily Azithromycin 250 mg tablet Discontinued 0 PO .COMPLEX 11 0 October 04, 2023 12:00am November 06, 2023 2:10pm take 500 mg today (day 1), then 250 mg for 4 days (days 2-10) PO Start: 09-17-2016 AZITHROMYCIN 2 50 MG TABS 2 tablets by mouth today and then 1 tablet daily for the next 4 days AZITHROMYCIN [id number] Kavon Puentes RECRUITMENT ADVERTISING MANAGER-C cholecalciferol 0.025 mg oral capsule (9 sources) Vitamin D Start: 01-16-2024 take 1 capsule by mouth once daily Cholecalciferol (Vitamin D3) 25 mcg (1,000 unit) capsule Active 25 ug PO daily January 16, 2024 12:00am Start: 02-12-2023 End: 11-06-2023 take 1 tablet by mouth once daily Cholecalciferol (Vitamin D3) 50 mcg (2,000 unit) tablet,chewable Discontinued 50 ug PO DAILY February 12, 2023 12:00am November 06, 2023 2:11pm 168 hr estradiol 0.21136 mg/hr transdermal system (9 sources) Estrogen Start: 02-12-2023 End: 11-10-2024 Estradiol (Climara) 0.075 mg/24 hr patch weekly Active 1 NMA TD EVERY WEEK 12 3 November 10, 2024 9:56am Start: 02-12-2023 Estradiol (Cli ramses) 0.075 mg/24 hr patch weekly Active 1 PATCH TD EVERY WEEK February 12, 2023 12:00am meloxicam 15 mg oral tablet (14 sources) Nonsteroidal Anti-inflammatory Drug Start: 01-16-2024 take 1 tablet by mouth once daily Meloxicam 15 mg tablet Active 15 mg PO daily January 16, 2024 12:00am Start: 10-04-2023 End: 11-06-2023 take 1 tablet by mouth once daily Meloxicam 15 mg tablet Discontinued 15 mg PO DAILY October 04, 2023 12:00am November 06, 2023 2:11pm Start: 12-27-2022 End: 02-12-2023 take 1 tablet by mouth once daily Meloxicam 15 mg tablet Discontinued 15 mg PO DAILY December 27, 2022 12:00am February 12, 2023 1:25pm Start: 01-20-2016 MELOXICAM 7.5 MG TABS MELOXICAM [id number] Bryan Marte [place]-3 Fatty Acids (3 sources) Start: 02-12-2023 take 1000 mg by mout h once daily [place]-3 Fatty Acids Active 1000 MG PO DAILY February 12, 2023 12:00am Start: 02-12-2023 take 1000 mg by mouth once zoie ly [place]-3 Fatty Acids Active 1000 MG PO DAILY February 11, 2023 11:00pm levothyroxine sodium 0.1 mg oral tablet (8 sources) l-Thyroxine Start: 02-12-2023 take 1 tablet by mouth once daily Levothyroxine (Synthroid) 100 mcg tablet Active 100 ug PO DAILY February 12, 2023 12:00am Start: 01-20-2016 SYNTHROID 125 MCG TABS LEVOTHYROXINE SODIUM [id number] Bryan Marte traZODone hydrochloride 50 mg oral tablet (11 sources) Serotonin Reuptake Inhibitor Start: 01-16-2024 take 1 tablet by mouth once daily Trazodone 50 mg tablet Active 50 mg PO daily January 16, 2024 12:00am Start: 12-27-2022 End: 11-06-2023 Trazodone 50 mg tablet Disco ntinued 25 mg PO DAILY December 27, 2022 12:00am November 06, 2023 2:11pm Start: 12-27-2022 take 25 mg by mouth once daily Trazodone Active 25 MG PO DAILY December 27, 2022 12:00am Start: 01-20-2016 TRAZODONE HCL 50 MG TABS TRAZODONE HCL [id number] Bryan Salty Marte vitamin b12 1 mg oral capsule (3 sources) Vitamin B12 Start: 01-16-2024 take 1 capsule by mouth once daily Cyanocobalamin (Vitamin B-12) 1,000 mcg capsule Active 1000 ug PO daily January 16, 2024 12:00am Completed/Discontinued Medications Medication Drug Class(es) Dates Sig (Normalized) Sig (Original) Acetaminophen / HYDROcodone (3 sources) Opioid Agonist Start: 11-06-2023 End: 01-16-2024 Hydrocodone-Acetami nophen 5-500 mg tablet Discontinued {tbl} PO November 06, 2023 12:00am January 16, 2024 8:56am ascorbic acid 1000 mg oral capsule (9 sources) Vitamin C Start: 01-16-2024 End: 11-10-2024 take 1 g by mouth once daily Ascorbic Acid (Vitamin C) 1,000 mg capsule Discontinued 1 g PO daily January 16, 2024 12:00am November 10, 2024 10:06am Start: 02-12-2023 End: 11-06-2023 take 1 g by mouth every six hours Ascorbic Acid (Vitamin C) 1,000 mg capsule Discontinued 1 g PO EVERY 6 HOURS February 12, 2023 12:00am November 06, 2023 2:10pm Start: 02-12-2023 take 1 g by mouth ev jasen six hours Ascorbic Acid (Vitamin C) Active 1 GM PO EVERY 6 HOURS February 12, 2023 12:00am Start: 02-12-2023 take 1 g by mouth ev jasen six hours Ascorbic Acid (Vitamin C) Active 1 GM PO EVERY 6 HOURS February 11, 2023 11:00pm aspirin 81 mg delayed release oral tablet (3 sources) Platelet Aggregation Inhibitor, Nonsteroidal Anti-inflammatory Drug Start: 11-06-2023 End: 01-16-2024 take 1 tablet by mouth once daily Aspirin (Adult Aspirin Regimen) 81 mg tablet,delayed release (DR/EC) Discontinued 81 mg PO DAILY November 06, 2023 12:00am January 16, 2024 8:56am benzonatate 100 mg oral capsule (2 sources) Non-narcotic Antitussive Start: 09-17-2016 take 1 tablet by mouth three times daily as needed for cough TESSALON PERLES 100 MG CAPS One tablet by mouth three times daily as needed for cough BENZONATATE [id number] Kavon Puentes RECRUITMENT ADVERTISING MANAGER-C Brompheniramine-P seudoeph-Dm (Bromfed Dm) 2-30-10 mg/5 mL syrup (3 sources) Start: 10-04-2023 End: 11-06-2023 take 1 mL by mouth every four to six hours as needed Brompheniramine-Pse udoeph-Dm (Bromfed Dm) 2-30-10 mg/5 mL syrup Discontinued 5 mL PO EVERY 4-6 HOURS as needed for sinus symptoms 118 0 October 04, 2023 12:00am November 06, 2023 2:11pm lisinopril 2.5 mg oral tablet (6 sources) Angiotensin Converting Enzyme Inhibitor Start: 12-27-2022 End: 02-12-2023 take 1 tablet by mouth once daily Lisinopril 2.5 mg tablet Discontinued 2.5 mg PO DAILY December 27, 2022 12:00am February 12, 2023 1:25pm loratadine 10 mg oral tablet (6 sources) Start: 12-27-2022 End: 02-12-2023 take 1 tablet by mouth once daily Loratadine (Allergy Relief (Loratadine)) 10 mg tablet Discontinued 10 mg PO DAILY December 27, 2022 12:00am February 12, 2023 1:25pm montelukast 10 mg oral tablet (3 sources) Leukotriene Receptor Antagonist Start: 10-04-2023 End: 11-06-2023 take 1 tablet by mouth once daily Montelukast (Singulair) 10 mg tablet Discontinued 10 mg PO DAILY October 04, 2023 12:00am November 06, 2023 2:11pm Multivitamin-Min- Iron-Fa-Vit K (Adults Multivitamin) 18 mg iron-400 mcg-25 mcg tablet (6 sources) Start: 02-12-2023 End: 11-06-2023 take 1 tablet by mouth once Jppzmwqyxdvc-Hws-Mj on-Fa-Vit K (Adults Multivitamin) 18 mg iron-400 mcg-25 mcg tablet Discontinued {tbl} PO February 12, 2023 12:00am November 06, 2023 2:11pm Start: 02-12-2023 take 1 tablet by radu th once Vkdswrvqolzj-Khs-Tlcx-Fa-Vit K (Adults Multivitamin) 18 mg iron-400 mcg-25 mcg tablet Active TABLET PO February 12, 2023 12:00am Start: 02-12-2023 take 1 tablet by radu th once Fnjahkbqoheg-Sea-Iaow-Fa-Vit K (Adults Multivitamin) 18 mg iron-400 mcg-25 mcg tablet Active TABLET PO February 11, 2023 11:00pm naproxen 250 mg oral tablet (6 sources) Nonsteroidal Anti-inflammatory Drug Start: 02-12-2023 End: 10-04-2023 take 1 tablet by mouth twice daily as needed Naproxen 250 mg tablet Discontinued 250 mg PO TWICE A DAY as needed February 12, 2023 12:00am October 04, 2023 9:12am [place]-3 Fatty Acids 1,000 mg capsule (3 sources) Start: 02-12-2023 End: 11-06-2023 take 1 capsule by mouth once daily [place]-3 Fatty Acids 1,000 mg capsule Discontinued 1000 mg PO DAILY February 12, 2023 12:00am November 06, 2023 2:11pm predniSONE 10 mg oral tablet (5 sources) Start: 12-07-2024 End: 12-19-2024 Prednisone 10 mg tablet Discontinued 10 mg PO .COMPLEX 30 12 0 December 07, 2024 12:02pm December 18, 2024 12:00am December 19, 2024 12:09am Take 4 pills for 3 days, 3 pills for 3 days, 2 pills for 3 days, take 1 pill for 3 days Start: 01-14-2024 End: 01-26-2024 Prednisone 10 mg tablet Disc ontinued 10 mg PO .COMPLEX 30 12 0 January 14, 2024 12:00am January 25, 2024 12:00am January 26, 2024 12:09am Take 4 pills for 3 days, 3 pills for 3 days, 2 pills for 3 days, take 1 pill for 3 days Vitamin B Complex (B Complex-Vitamin B12) tablet (6 sources) Start: 02-12-2023 End: 11-06-2023 Vitamin B Complex (B Complex-Vitamin B12) tablet Discontinued 1 {tbl} PO DAILY February 12, 2023 12:00am November 06, 2023 2:11pm Start: 02-12-2023 take 1 tablet by radu th once daily Vitamin B Complex (B Complex-Vitamin B12) tablet Active 1 TABLET PO DAILY February 12, 2023 12:00am Start: 02-12-2023 take 1 tablet by radu th once daily Vitamin B Complex (B Complex-Vitamin B12) tablet Active 1 TABLET PO DAILY February 11, 2023 11:00pm vitamin e 450 mg oral capsule (6 sources) Start: 02-12-2023 End: 11-06-2023 take 1 capsule by mouth once daily Vitamin E (Dl, Acetate) 450 mg (1,000 unit) capsule Discontinued 450 mg PO DAILY February 12, 2023 12:00am November 06, 2023 2:11pm Problems Active Problems Problem Classification Problem Date Documented Da te Episodic/Chronic Essential hypertension (6 sources) Hypertensive disorder; Translations: [Essential (primary) hypertension] 12-27-2022 Chronic Menopausal disorders (5 sources) Drug therapy finding; Translations: [Hormone replacement therapy] 11-06-2023 Episodic Osteoarthritis (7 sources) Osteoarthritis of left knee joint; Translations: [Unilateral primary osteoarthritis, left knee] 02-12-2023 Chronic Other gastrointestinal disorders (3 sources) Stool DNA-based colorectal cancer screening positive; Translations: [Other fecal abnormalities] 01-16-2024 Episodic Other lower respiratory disease (5 sources) Cough; Translations: [Cough] Onset: 09-17-2016 09-17-2016 Episodic Other non-traumatic joint disorders (7 sources) Pain in left knee; Translations: [Left knee pain] 02-12-2023 Episodic Other screening for suspected conditions (not mental disorders or infectious disease) (8 sources) Ultrasonography of breast abnormal; Translations: [Other abnormal and inconclusive findings on diagnostic imaging of breast] Onset: 05-15-2024 12-27-2022 Episodic Other upper respiratory infections (10 sources) Acute ethmoidal sinusitis; Translations: [Acute bacterial sinusitis] Onset: 09-17-2016 09-17-2016 Episodic Past or Other Problems Problem Classification Problem Date Documented Da te Episodic/Chronic Other connective tissue disease (4 sources) Hand pain; Translations: [Olecranon bursitis] Onset: 01-20-2016 09-17-2016 Episodic Other connective tissue disease (1 source) Metatarsalgia, left foot; Translations: [Metatarsalgia, left foot] Onset: 03-10-2024 Episodic Other gastrointestinal disorders (1 source) Other fecal abnormalities; Translations: [Other fecal abnormalities] Onset: 03-05-2024 Episodic Other non-traumatic joint disorders (2 sources) Pain in elbow; Translations: [Pain in left elbow] Onset: 01-20-2016 01-20-2016 Episodic Results Test Name Value Interpretation Reference Range Facility Breast imaging reportOrdered By: Parth Alvarenga on 12-25-2024 Study report [facility] Imaging Services [address] [place] [address] [id number] SCRN MAMM (CAD)W/YARITZA BILAT MR#: [id number] Acct: [id number] Name: PHAM TEJADA Rep #: [id number] : 1945 F 79 From: Iván Alvarenga MD PCP: Dr. Clive Patel MD Status: [facility] Study:SCRN MAMM (CAD)W/YARITZA BILAT Date of Exa m: 12/25/24 Exam# [id number] Ordering Dr: Cande Ryan WEB MARKETING INTERN WEB MARKETING INTERN-C EXAM: SCRN MAMM (CAD)W/YARITZA BILAT DATE: 12/25/2024 CLINICAL HISTORY: F, Age 79 y/o , SCREEN FOR BREAST CANCER No family history. TECHNIQUE: SCRN MAMM (CAD)W/YARITZA BILAT COMPARISON: Prior exam(s) dated December 17, 2023.. FINDINGS: TISSUE DENSITY: The breasts are heterogeneously dense, which may obscure small masses. Bilateral Breast Mammographic Findings: No significant masses, calcifications or other abnormalities are identified. No suspicious masses, areas of developing architectural distortion, or suspicious calcifications. There has been no significant interval change. BI/SCRN MAMM (CAD)W/YARITZA BILAT IMPRESSION: Stable examination. OVERALL FINAL ASSESSMENT BI-RADS 2: BENIGN RECOMMENDATION: Routine annual follow-up in 1 Year A letter with findings and recommendations will be mailed to the patient. Reading Location: [place] [address] CC: WEB MARKETING INTERN-C Cande Ryan; Dr. Clive Patel MD ~ Instructor Modeling: Signed [facility] SCRN MAMM (CAD)W/YARITZA BILATo n 12-25-2024 SCRN MAMM (CAD)W/YARITZA BILAT [facility] Imaging Services [address] [place] [address] SCRN MAMM (CAD)W/YARITZA BILAT MR#: [id number] Acct: [id number] Name: PHAM TEJADA Rep #: [id number] : 1945 F 79 From: Parth dye MD PCP: Dr. Clive Patel MD Status: [facility] Study: SCRN MAMM (CAD)W/YARITAZ BILAT Date of Exam: 12/12 09/05 Exam# [id number] Ordering Dr: Cande Ryan NP WEB MARKETING INTERN -C EXAM: SCRN MAMM (CAD)W/YARITZA BILAT DATE: 12/25/2024 CLINICAL HISTORY: F, Age 79 y/o , SCREEN FOR BREAST CANCER No family history. TECHNIQUE: SCRN MAMM (CAD)W/YARITZA BILAT COMPARISON: Prior exam(s) dated December 17, 2023.. FINDINGS: TISSUE DENSITY: The breasts are heterogeneously dense, which may obscure small masses. Bilateral Breast Mammographic Findings: No significant masses, calcifications or other abnormalities are identified. No suspicious masses, areas of developing architectural distortion, or suspicious calcifications. There has been no significant interval change. BI/SCRN MAMM (CAD)W/YARITZA BILAT IMPRESSION: Stable examination. OVERALL FINAL ASSESSMENT BI-RADS 2: BENIGN RECOMMENDATION: Routine annual follow-up in 1 Year A letter with findings and recommendations will be mailed to the patient. [facility] CC: EVELYN Ryan; Dr. Clive Patel MD Instructor Modeling: Signed Normal [facility] Urgent Care Visit Reporton 0 12-07-2024 Urgent Care Visit Report [facility] [address], [address] [place] [address] OFFICE VISIT Date of Service: 12/07/24 MR#: [id number] Acct: [id number] Name: PHAM TEJADA Rep #: [id number] : 1945 Provider: EVELYN garrett Age/Sex: 79/F Location: [facility] Status: Signed Intake Vital Signs 11/10/24 09:51 12/07/24 11:35 Height 5 ft 5 in 5 ft 5 in Weight: 176 lb BMI 29.2 BP 118/80 Blood Pressure Location Lt brachial Position Sitting Respiration 19 H Pulse 102 H Pulse Source Monitor Temp 97.6 F L Temp Source Oral Pulse Oximetry (%) 97 Oxygen Delivery Method room air Intake Visit Reasons: SINUS PRESSURE/PAIN Chief Complaint: SINUS PRESSURE/PAIN Is patient in pain?: No Allergies amoxicillin (From Augmentin) Allergy (Intermediate, Verified 12/07/24 11:36) Rash clarithromycin (From Biaxin) Allergy (Intermediate, Verified 12/07/24 11:36) Rash clavulanic acid (From Augmentin) Allergy (Intermediate, Verified 12/07/24 11:36) Rash doxycycline Allergy (Intermediate, Verified 12/07/24 11:36) Hives Penicillins Allergy (Intermediate, Verified 12/07/24 11:36) Hives oxycodone (From Percocet) Allergy (Mild, Verified 12/07/24 11:36) Rash Sulfa (Sulfonamide Antibiotics) Allergy (Mild, Verified 12/07/24 11:36) Other quinapril Adverse Reaction (Intermediate, Verified 12/07/24 11:36) Other Medications ???Medication ???Instructions ???Recorded ???Confirmed ???Type amlodipine 5 mg tablet 5 mg PO DAILY 02/12/23 12/07/24 Hi story levothyroxine 100 mcg tablet 100 mcg PO DAILY 02/12/23 12/07/24 History (Synthroid) acetaminophen 650 mg 650 mg PO Q12H PRN pain 01/16/24 0 12/07/24 History tablet,extended release (Tylenol Arthritis Pain) cholecalciferol (vitamin D3) 25 25 mcg PO QDAY 01/16/24 12/07/24 H istory mcg (1,000 unit) capsule cyanocobalamin (vitamin B-12) 1,000 mcg PO QDAY 01/16/24 5 History 1,000 mcg capsule meloxicam 15 mg tablet 15 mg PO QDAY 01/16/24 12/07/24 Hi story trazodone 50 mg tablet 50 mg PO QDAY 01/16/24 12/07/24 Hi story Climara 0.075 mg/24 hr transdermal 1 patch transdermal QWEEK #12 ea 11/10/24 12/07/24 Rx patch (estradiol) azithromycin 250 mg tablet See Rx Instructions PO .COMPLEX 12/07/24 Rx #11 tabs prednisone 10 mg tablet 10 mg PO .COMPLEX 12 days #30 tabs 12/07/24 12/07/24 Rx Have you fallen in the past year?: No Nurse's Note: pt reports having issues with sinus congestion and pressure/ cough for the past few weeks. pt states she has been trying to manage it with OTC medications however over the past week has noticed a yellow mucous that she is coughing up especially in the am. pt reports she has a trip scheduled soon and is hoping to have resolution to her symptoms. [facility] Medical History Positive colorectal cancer screening using Cologuard test Loss of hearing Wears dentures History of steroid therapy Arthritis Thyroid disease Non-smoker History of edema Osteoarthritis of left knee Left knee pain Surgical History History of colonoscopy Status post glaucoma surgery S/P knee replacement Finger joint replaced H/O: hemorrhoidectomy History of thyroidectomy History of hysterectomy Social History household members: spouse current occupational status: retired Smoking Status: Never smoker alcohol intake: never substance use type: does not use seatbelt use: always do you feel safe at home: Yes additional social history: - Dimitrios- Retired HPI HPI Chief Complaint: SINUS PRESSURE/PAIN Details: PHAM TEJADA, is a 79 F who presents to the office today for concerns regarding sinus pain/pressure for 2 weeks. She states new productive cough with yellow sputum. ROS Const Constitutional: No body ache, chills, excessive sweating, fatigue, fever(s), frequent falls, headache(s), snoring, weight change, sleep problems, abnormal sleep pattern or change in appetite Eyes Eyes: No blurry vision, change in vision, eye pain or Light sensitivity ENT ENT: No abnormal hearing, ear or mastoid pain, tinnitus, nasal congestion, headache(s), neck pain or sore throat Resp Respiratory: No cough, shortness of breath, snoring or wheezing Cardio Cardiology: No chest pain at rest, chest pain with exertion, excessive sweating, shortness of breath, dyspnea on exertion, lightheadedness, orthopnea or palpitations Gastro GI: No abdominal pain, change in bowel habits, constipation, cramping, diarrhea, nausea/dyspepsia or vomiting Genitourinary-Female: No burning urination, painful urination, urinary incontinence, urinary frequency, (more content not included)... Normal [facility] Television Inspector Office Visit Reporton 11-10-2024 Television Inspector Office Visit Report [facility] [address], [address] [place] [address] OFFICE VISIT Date of Service: 11/10/24 MR#: [id number] Acct: [id number] Name: PHAM TEJADA Rep #: [id number] : 1945 Provider: EVELYN freeman Age/Sex: 79/F Location: [facility] Status: Signed Intake Vital Signs 02/11/24 08:14 11/10/24 09:47 11/10/24 09:51 Height 5 ft 5 in 5 ft 5 in 5 ft 5 in Weight: 173 lb 8 oz BMI 28.8 BP 138/70 H Intake Visit Reasons: 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) Chief Complaint: Annual Pin Inserter Regulator Required: No Is patient in pain?: No Allergies amoxicillin (From Augmentin) Allergy (Intermediate, Verified 11/10/24 09:47) Rash clarithromycin (From Biaxin) Allergy (Intermediate, Verified 11/10/24 09:47) Rash clavulanic acid (From Augmentin) Allergy (Intermediate, Verified 11/10/24 09:47) Rash doxycycline Allergy (Intermediate, Verified 11/10/24 09:47) Hives Penicillins Allergy (Intermediate, Verified 11/10/24 09:47) Hives oxycodone (From Percocet) Allergy (Mild, Verified 11/10/24 09:47) Rash Sulfa (Sulfonamide Antibiotics) Allergy (Mild, Verified 11/10/24 09:47) Other quinapril Adverse Reaction (Intermediate, Verified 11/10/24 09:47) Other Medications ???Medication ???Instructions ???Recorded ???Confirmed ???Type amlodipine 5 mg tablet 5 mg PO DAILY 02/12/23 11/10/24 Hi story levothyroxine 100 mcg tablet 100 mcg PO DAILY 02/12/23 11/10/24 History (Synthroid) acetaminophen 650 mg 650 mg PO Q12H PRN pain 01/16/24 0 11/10/24 History tablet,extended release (Tylenol Arthritis Pain) cholecalciferol (vitamin D3) 25 25 mcg PO QDAY 01/16/24 11/10/24 H istory mcg (1,000 unit) capsule cyanocobalamin (vitamin B-12) 1,000 mcg PO QDAY 01/16/24 5 History 1,000 mcg capsule meloxicam 15 mg tablet 15 mg PO QDAY 01/16/24 11/10/24 Hi story trazodone 50 mg tablet 50 mg PO QDAY 01/16/24 11/10/24 Hi story Climara 0.075 mg/24 hr transdermal 1 patch transdermal QWEEK #12 ea 11/10/24 11/10/24 Rx patch (estradiol) Is last menstrual period known: No Post menopausal: Yes Patient : No : No PFSH Medical History (Updated 11/10/24 @ 10:19 by Cande Ryan NP, [employer]) Positive colorectal cancer screening using Cologuard test Loss of hearing Wears dentures History of steroid therapy Arthritis Thyroid disease Non-smoker History of edema Osteoarthritis of left knee Left knee pain Surgical History History of colonoscopy Status post glaucoma surgery S/P knee replacement Finger joint replaced H/O: hemorrhoidectomy History of thyroidectomy History of hysterectomy Social History household members: spouse current occupational status: retired Smoking Status: Never smoker alcohol intake: never substance use type: does not use seatbelt use: always do you feel safe at home: Yes additional social history: - Dimitrios- Retired History 3 Elective abortions Hx Para 2 Spontaneous abortions Hx # Term Pregnancies Ectopic pregnancies Hx # Pregnancies Multiple births # of living children 2 Past Pregnancies Del. Date Name GA/Weeks Outcome Route Bth Weight Infant Gen Labor Lgth Anesthesia Del Locatn Provider FOB Unknown Leeanna Unknown Raffy HPI Encounter for routine gynecological examination Details: PHAM TEJADA is a 79 year old who presents for annual exam. She is still on climara patch. Last Rx from PCP. Last PAP: Hyst History of abnormal PAP: NA Last mammogram: 12/2023 History of abnormal mammogram: no Colon cancer screenin, rpt 5 yr Other preventative health care screenings: Shauna Patel Female Reproductive History Questions: metorrhagia: No and sexually active: No Menopausal Treatment: Yes HRT ROS Const Constitutional: Denies fatigue, weight gain or weight loss Cardio Card: Denies chest pain Resp Resp: Denies cough or dyspnea on exertion GI GI: Denies abdominal pain, bloating, change in stool character, constipation or vomiting : Reports as per HPI; Denies difficulty voiding, pelvic pain, urinary frequency, urinary incontinence, urinary urgency, vaginal discharge or vaginal pruritus Exam Const General: cooperative, healthy appearing, no acute distress and well developed Orientation: alert, oriented to person and oriented to place [facility] Head: normal to inspection Neck Neck: normal visual inspection Thyroid: thyroid normal Lymphatic: no lymphadenopathy noted Chest Breast inspection: normal inspection of the breasts and normal inspection of the axillae Breast palpation: normal palpation of the breasts, normal palpation of the axillae and no (more content not included)... Normal [facility] CT SINUS W/O CONTRASTon 04-13 CT SINUS W/O CONTRAST ORIGINAL EXAMINATION: CT Sinuses without intravenous contrast TECHNIQUE: Axial noncontrast CT of the head and paranasal sinuses was performed. Coronal and sagittal reconstructions. DICOM images are available. One or more of the following dose reduction techniques were used: automated exposure control, adjustment of the mA and/or kV according to patient size, or use of iterative reconstruction. COMPARISON: None. HISTORY: ORDERING SYSTEM PROVIDED HISTORY: Reason for Exam: SINUSITIS FINDINGS: Maxillary sinuses: Clear. Sphenoid sinuses: Clear. Ethmoid sinuses: Clear. Frontal sinuses: Aplastic right and hypoplastic left frontal sinuses. Frontoethmoidal recesses: Clear. Sphenoethmoidal recesses: Clear. Ostiomeatal units: Clear. Fluid levels: None. Nasal septum: Midline. Nasopharynx: Unremarkable. Nasal cavity: Unremarkable. Mastoid air cells: Clear. Orbits: Unremarkable. Post bilateral lens implant surgery. Visualized brain: No acute pathology. Soft tissues: Unremarkable. Bones: No acute or remote fracture. No focal osseous lesions. 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 Joint calcifications on the right may reflect deposition disease. IMPRESSION: 1. No acute or chronic paranasal sinus disease. 2. 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 Joint calcifications on the right may reflect deposition disease. Interpreted by: Primo Prado MD Preliminary Report By: Primo Prado MD Electronically signed By Primo Prado MD Dictated Date: 04/24/2024 1:55:32 PM Prelim Date: 04/24/2024 1:58:12 PM Sign Date: 04/24/2024 1:58:12 PM Ordering Provider: CLIVE Riley [facility] CBC W/Diff, Automatedon 12- Absolute Lymph 1.46 X10 3/uL Normal 0.83-4.51 [facility] Comment on above: Order Comment: Order Date: 04/22/24 Order Info: 0184-1 - CBCD Performed By: #### L 300.3900, L100.0100, L300.4310 #### [facility] [address] [place], [address] Absolute Neut 3.5 X10 3/uL Normal 2.0-7.7 [facility] Comment on above: Order Comment: Order Date: 04/22/24 Order Info: 0184-1 - CBCD Performed By: #### L 300.3900, L100.0100, L300.4310 #### [facility] [address] [place], [address] Basophils/100 WBC (Bld) 1.7 % High 0-1 [facility] Comment on above: Order Comment: Order Date: 04/22/24 Order Info: 0184-1 - CBCD Performed By: #### L 300.3900, L100.0100, L300.4310 #### [facility] [address] [place], [address] Eosinophils/100 WBC (Bld) 3.1 % Normal 0-5 [facility] Comment on above: Order Comment: Order Date: 04/22/24 Order Info: 018-1 - CBCD Performed By: #### L 300.3900, L100.0100, L300.4310 #### [facility] [address] [place], [address] Erythrocyte distribution width (RBC) [Ratio] 14.2 % Normal 11.6-14.6 [facility] Comment on above: Order Comment: Order Date: 04/22/24 Order Info: 018-1 - CBCD Performed By: #### L 300.3900, L100.0100, L300.4310 #### [facility] [address] [place], [address] Hematocrit (Bld) [Volume fraction] 45.2 % Normal 37-47 [facility] Comment on above: Order Comment: Order Date: 04/22/24 Order Info: 0184-1 - CBCD Performed By: #### L 300.3900, L100.0100, L300.4310 #### [facility] [address] [place], [address] Hemoglobin (Bld) [Mass/Vol] 14.4 g/dL Normal 12.0-15.0 [facility] Comment on above: Order Comment: Order Date: 04/22/24 Order Info: 018- - CBCD Performed By: #### L 300.3900, L100.0100, L300.4310 #### [facility] [address] [place], [address] IG% 0.200 Normal 0.0-0.9 [facility] Comment on above: Order Comment: Order Date: 04/22/24 Order Info: 018- - CBCD Result Comment: IG% - Immature Granulocytes (promyelocytes, myelocytes and metamyelocytes) > 1% indicates that a LEFT SHIFT is Present. Performed By: #### L 300.3900, L100.0100, L300.4310 #### [facility] [address] [place], [address] Lymphocytes/100 WBC (Bld) 25.4 % Normal 19-41 [facility] Comment on above: Order Comment: Order Date: 04/22/24 Order Info: 01808-12 - CBCD Performed By: #### L 300.3900, L100.0100, L300.4310 #### [facility] [address] [place], [address] MCH (RBC) [Entitic mass] 27.9 pg Normal 27.0-32.0 [facility] Comment on above: Order Comment: Order Date: 04/22/24 Order Info: 018- - CBCD Performed By: #### L 300.3900, L100.0100, L300.4310 #### [facility] [address] [place], [address] MCHC (RBC) [Mass/Vol] 31.9 g/dL Low 32-36 [facility] Comment on above: Order Comment: Order Date: 04/22/24 Order Info: 018- - CBCD Performed By: #### L 300.3900, L100.0100, L300.4310 #### [facility] [address] [place], [address] MCV (RBC) [Entitic vol] 87.6 fL Normal 81-99 [facility] Comment on above: Order Comment: Order Date: 04/22/24 Order Info: 0184-1 - CBCD Performed By: #### L 300.3900, L100.0100, L300.4310 #### [facility] [address] [place], [address] Monocytes/100 WBC (Bld) 8.4 % Normal 0-10 [facility] Comment on above: Order Comment: Order Date: 04/22/24 Order Info: 018-1 - CBCD Performed By: #### L 300.3900, L100.0100, L300.4310 #### [facility] [address] [place], [address] Neutrophils/100 WBC (Bld) 61.2 % Normal 47-70 [facility] Comment on above: Order Comment: Order Date: 04/22/24 Order Info: 018- - CBCD Performed By: #### L 300.3900, L100.0100, L300.4310 #### [facility] [address] [place], [address] Nucleated RBC (Bld) [#/Vol] 0 10*3/uL Normal 0-5 [facility] Comment on above: Order Comment: Order Date: 04/22/24 Order Info: 0184-1 - CBCD Performed By: #### L 300.3900, L100.0100, L300.4310 #### [facility] [address] [place], [address] Platelet mean volume (Bld) [Entitic vol] 10.4 fL Normal 6.2-12.0 [facility] Comment on above: Order Comment: Order Date: 04/22/24 Order Info: 0184-1 - CBCD Performed By: #### L 300.3900, L100.0100, L300.4310 #### [facility] [address] [place], [address] Platelets (Bld) [#/Vol] 243 10*3/uL Normal 150-450 [facility] Comment on above: Order Comment: Order Date: 04/22/24 Order Info: 018-1 - CBCD Performed By: #### L 300.3900, L100.0100, L300.4310 #### [facility] [address] [place], [address] RBC (Bld) [#/Vol] 5.16 10*6/uL Normal 4.2-5.4 [facility] Comment on above: Order Comment: Order Date: 04/22/24 Order Info: 018- - CBCD Performed By: #### L 300.3900, L100.0100, L300.4310 #### [facility] [address] [place], [address] RDW SD 45.3 fl High 35.1-43.9 [facility] Comment on above: Order Comment: Order Date: 04/22/24 Order Info: 018- - CBCD Performed By: #### L 300.3900, L100.0100, L300.4310 #### [facility] [address] [place], [address] WBC (Bld) [#/Vol] 5.7 10*3/uL Normal 4.4-11.0 [facility] Comment on above: Order Comment: Order Date: 04/22/24 Order Info: 018-1 - CBCD Performed By: #### L 300.3900, L100.0100, L300.4310 #### [facility] [address] [place], [address] Chest PA and Lateralon 04-22 Chest PA and Lateral [facility] Imaging Services [address] [place] [address] Chest PA and Lateral MR#: [id number] Acct: [id number] Name: PHAM TEJADA Rep #: [id number] : 1945 F 78 From: Bryan Burnett PCP: Dr. Clive Patel MD Status: REG CLI Study: Chest PA and Lateral Date of Exam: 04/22/24 Exam# [id number] Ordering Dr: Clive Patel MD [id number] EXAM: XR CHEST, 2 VIEWS CLINICAL INDICATION: COUGH TECHNIQUE: Frontal and lateral views of the chest. COMPARISON: 08/27/2017. FINDINGS: LUNGS AND PLEURAL SPACES: Unremarkable. No consolidation or edema. No pneumothorax. No effusion. HEART: Unremarkable. Cardiac silhouette not enlarged. MEDIASTINUM: Central airways and mediastinal contour are unremarkable. BONES/JOINTS: Unremarkable. No acute fracture. SOFT TISSUES: Unremarkable. RAD/Chest PA and Lateral IMPRESSION: No radiographic evidence of acute cardiopulmonary disease. Electronically Signed: Bryan Oviedo MD at 4:18 EST , CC: Dr. Clive Patel MD Instructor Modeling: Signed Normal [facility] Partial Thromboplast Timeon 04-22-2024 aPTT Coag (Bld) [Time] 32.7 s Normal 24.1-36.2 [facility] Comment on above: Order Comment: Order Date: 04/22/24 Order Info: 6301-6 - PT Order Info: 60585-5 - PTT COPY TO AT [facility] [phone] Performed By: #### L 300.3900, L100.0100, L300.4310 #### [facility] [address] [place], [address] Prothrombin Time w/INRon INR Coag (PPP) [Relative time] 1.1 {INR} Normal [facility] Comment on above: Order Comment: Order Date: 04/22/24 Order Info: 6301-6 - PT Order Info: [id number] - PTT COPY TO AT [facility] [phone] Performed By: #### L 300.3900, L100.0100, L300.4310 #### [facility] [address] [place], [address] PT Coag (PPP) [Time] 14.0 s Normal 11.7-14.9 [facility] Comment on above: Order Comment: Order Date: 04/22/24 Order Info: 6301-6 - PT Order Info: 19523-8 - PTT COPY TO AT [facility] [phone] Performed By: #### L 300.3900, L100.0100, L300.4310 #### [facility] [address] [place], [place], [address] Breast Limited Unilateralon 04-14-2024 Breast Limited Unilateral [facility] Imaging Services [address] [place], [place] [address] Breast Limited Unilateral MR#: [id number] Acct: [id number] Name: PHAM TEJADA Rep #: [id number] : 1945 F 78 From: Parth dye MD PCP: Dr. Clive Patel MD Status: [facility] Study: Breast Limited Unilateral Date of Exam: Exam# [id number] Ordering Dr: Jia Stephen MD [id number] STUDY: ULTRASOUND BREAST - RIGHT REASON FOR EXAM: Female, 78 years old. Prior aspiration of the right breast. TECHNIQUE: Axial and longitudinal images of the RIGHT breast were performed with a high resolution ultrasound transducer. # OF IMAGES: 18 COMPARISON: Comparison is made with prior sonogram dated September 18, 2023. FINDINGS: RIGHT Breast: Persistent 1.6 cm x 1.5 signed by 1 cm complex cystic structure at the 3:00 position breast at 3 cm from the nipple. Increased peripheral vascularity is seen. Dilated retroareolar ducts. US/Breast Limited Unilateral IMPRESSION: Stable examination. Correlation with the pathology from prior aspiration recommended. ASSESSMENT CATEGORY: BIRADS Category 2: Benign. A letter regarding these results will be sent to the patient by the facility within 30 days. Electronically Signed: Parth Alvarenga MD at 15:14 EST Reading Location ID and State: [address] [place] [address] , Service support , CC: Dr. Clive Patel MD; Dr. Jia Stephen MD Instructor Modeling: Signed Normal [facility] Foot min 3 Viewson 4 Foot min 3 Views [facility] Imaging Services [address] [place], [place] [address] Foot min 3 Views MR#: [id number] Acct: [id number] Name: PHAM TEJADA Rep #: [id number] : 1945 F 78 From: Marty Burnett PCP: Dr. Clive Patel MD Status: REG CLI Study: Foot min 3 Views Date of Exam: 02/18/24 Exam# [id number] Ordering Dr: Clive Patel MD [id number] INDICATION: metatarsalgia left foot EXAMINATION/TECHNIQUE : X-RAY - LEFT XR Foot Min 3 Views 3 VIEWS COMPARISON: No relevant prior comparison study available __ FINDINGS: SOFT TISSUES: No soft tissue swelling or gas. No radiopaque foreign body. BONES/JOINTS: Probable old fracture of the proximal phalanges of the third and fourth toes no evidence of acute fracture or dislocation. Normal alignment. The joint spaces are within normal limits. No sclerotic or destructive changes observed. RAD/Foot min 3 Views IMPRESSION: No evidence of acute osseous changes. Electronically Signed: Marty Hogan MD at 11:25 EDT , CC: Dr. Clive Patel MD Instructor Modeling: Signed Normal [facility] Colonoscopy Reporton 024 Colonoscopy Report [facility] Medical Records Department [address] [place] [address] Colonoscopy Report MR#: [id number] Acct: [id number] Name: PHAM TEJADA Rep #: [id number] : 1945 78 From: Jia Stpehen MD PCP: Dr. Clive Patel MD Status:REG [facility] Patient Name: hPam Tejada Procedure Date: 02/11/2024 8:22 AM Date of : 1945 Age: 78 Procedure: Colonoscopy Indications: Positive Cologuard test Providers: Jia Stephen MD Referring MD: Clive Patel Medicines: Monitored Anesthesia Care Patient Profile: This is a 78 year old female. Last Colonoscopy: 8 years ago. Complications: No immediate complications. Procedure: Pre-Anesthesia Assessment: - Prior to the procedure, a History and Physical was performed, and patient medications and allergies were reviewed. The patient's tolerance of previous anesthesia was also reviewed. The risks and benefits of the procedure and the sedation options and risks were discussed with the patient. All questions were answered, and informed consent was obtained. Prior Anticoagulants: The patient has taken no anticoagulant or antiplatelet agents. ASA Grade Assessment: Per anesthesia. After reviewing the risks and benefits, the patient was deemed in satisfactory condition to undergo the procedure. After I obtained informed consent, the scope was passed under direct vision. Throughout the procedure, the patient's blood pressure, pulse, and oxygen saturations were monitored continuously. The Colonoscope was introduced through the anus and advanced to the cecum, identified by the appendiceal orifice, ileocecal valve and palpation. The colonoscopy was performed without difficulty. The patient tolerated the procedure well. The quality of the bowel preparation was good. Scope In: 8:32:31 AM Scope Withdrawal Time 0 hours 15 minutes 15 seconds Scope Out: 8:52:37 AM Total Procedure Duration Time 0 hours 20 minutes 6 seconds Findings: Hemorrhoids were found on perianal exam. A 6 mm polyp was found in the ascending colon. The polyp was sessile. Polypectomy was attempted, initially using a piecemeal technique with a hot snare. Polyp resection was incomplete with this device. This intervention then required a different device and polypectomy technique. The polyp was removed with a cold biopsy forceps. Resection and retrieval were complete. The exam was otherwise without abnormality. A few small-mouthed diverticula were found in the sigmoid colon. Impression: - Hemorrhoids found on perianal exam. - One 6 mm polyp in the ascending colon, removed with a cold biopsy forceps. Resected and retrieved. - The examination was otherwise normal. Recommendation: - Discharge patient to home. - Resume previous diet. - Continue present medications. - Await pathology results. - Repeat colonoscopy in 3 years for surveillance after piecemeal polypectomy. Procedure Code(s): --- Professional --- 91266, Colonoscopy, flexible; with biopsy, single or multiple Diagnosis Code(s): --- Professional --- K64.9, Unspecified hemorrhoids D12.2, Benign neoplasm of ascending colon R19.5, Other fecal abnormalities CPT copyright 2021 [employer]. All rights reserved. The codes documented in this report are preliminary and upon semiconductor equipment technician review may be revised to meet current compliance requirements. MD Jia Urena MD 02/11/2024 8:57:45 AM This report has been signed electronically. Number of Addenda: 0 Note Initiated On: 02/11/2024 8:22 AM 02/11/24 0858 Date Jia Stephen MD Cosigner Signature: Date (if indicated) CC: Dr. Clive Patel MD; Dr. Jia Stephen MD Date Dictated: 02/11/24821 Date Transcribed: Instructor Modeling: TR Signed [facility] MR/POSTOP.ANEon 02-11-2024 MR/POSTOP.[place] Medical Records Department [address] [place] [address] Anesthesia Postop Eval I 02/11/24 0900 MR#: [id number] Acct: [id number] Name: PHAM TEJADA Rep #: [id number] : 1945 78 From: John Paul Chen PCP: Dr. Clive Patel MD Status:REG [facility] Y Race: C Location: [place] [address] Anesthesia: Postop Eval I Current Vital Signs Temperature: 97.5 F Pulse Rate: 76 Blood Pressure: 125/75 Respiratory Rate: 18 Pulse Ox: 97 Oxygen Delivery Method: Room Air Assessment Airway patent: Yes Spontaneous unlabored respirations: Yes Mental status: Asleep nausea: No Vomiting: No Anesthesia Complication: No Fluid Hydration Crystalloid volume administer (ml): 600 Total IV fluid infused: 600 Progress Note Anesthesia document: Postop Eval 1 completed: Yes 02/11/24900 Date John Paul Pimentel Signature: Date CC: Signed [facility] [id number] 02-11-2024 MR/POST[address] Medical Records Department [address] [place] [address] Anesthesia Postop Eval II 02/11/24 1049 MR#: [id number] Acct: [id number] Name: PHAM TEJADA Rep #: [id number] : 1945 78 From: Sterling Shipley MD PCP: Dr. Clive Patel MD Status:DEP [facility] Y Race: C Location: EN Anesthesia Postop Eval I Sum Postop Eval Completion status Anesthesia document: Postop Eval 1 completed: Yes Anesthesia Postop Eval I Summary Anesthesia Postop Eval I Summary: Anesthesia Postop Eval I: Assessment Summary Airway patent Yes 02/11/24 09:01 [email or web address] Spontaneous unlabored Yes 02/11/24 09:01 [email or web address] respirations Mental status Asleep 02/11/24 09:01 [email or web address] nausea No 02/11/24 09:01 [email or web address] Vomiting No 02/11/24 09:01 [email or web address] Anesthesia Postop Eval I: Fluid Summary Crystalloid volume administer 600 02/11/24 09:01 [email or web address] (ml) Colloids volume administered ( ml) Blood Product volume administered (ml) Total IV fluid infused 600 02/11/24 09:01 [email or web address] Anesthesia Postop Eval I: Summary Notes Anesthesia Complication No 02/11/24 09:01 [email or web address] Anesthesia Complication Comment: Post-operative progress note Anesthesia: Postop Eval II Evaluation Mental status: Awake Pain Level: 0 nausea: No Vomiting: No 02/11/24 1049 Date Sterling Shipley MD Cosigner Signature: Date CC: Signed Normal [facility] Surgery Specimen Level Venus 02-11-2024 Surgery Specimen Level IV -------- Patient Age/Sex Location Account Attending Physician -------- PHAM TEJADA 78/F EN [id number] Dr. Jia Stephen MD -------- Specimen: [id number] Received: 02/11/24 Status: RADHA Foote Num: [id number] Spec Type: COLON BX Subm Dr: Dr. Jia Stephen MD HEADER OPERATION: Colonoscopy with biopsy and polypectomy PRE-OP DIAGNOSIS: Positive colorectal cancer screening using Cologuard test TISSUE SUBMITTED: Ascending colon biopsy polyp and hot snare -------- MICROSCOPIC DIAGNOSIS Ascending colon polyp, biopsy: Fragments of tubular adenoma. AM.mr 02/12/2024 MICROSCOPIC DESCRIPTION Slides are reviewed. GROSS DESCRIPTION Received in fixative is one container labeled with the patient's name and designated Ascending colon polyp biopsy. The specimen consists of multiple irregular fragments of light choe soft tissue that in aggregate measure 1.5 x 0.5 x 0.1 cm. The specimen is totally submitted in one cassette. 02/11/2024 TC:5 CPT:94482 -------- Patient Age/Sex Location Account Attending Physician -------- PHAM TEJADA 78/F EN [id number] Dr. Jia Stephen MD -------- Signed (signature on file) Dr. Cale Ahumada DO 02/12/24 1321 -------- Normal [facility] Comment on above: Performed By: #### P JOSETTE #### [facility] [address] [place], [place], [id number] Re-Evaluation - PT (1)on Re-Evaluation - PT (1) [facility] Physical Therapy [facility] [address] [facility]. [address] [place] [address] / REEVALUATION / MEDICARE RECERTIFICATION PHYSICAL THERAPY MR#: [id number] Acct: [id number] Name: PHAM TEJADA Rep #: [id number] : 1945 78 From: Bre Roy PT, Cert. MDT Referring Dr.: Dr. Bassam Parra MD Status:R EG RCR Insurance: [facility] SELF PAY INSURANCE Re-Evaluation Intro: Dr. Bassam Parra MD, It has been my pleasure to treat PHAM TEJADA over the last 20 visits for OA L KNEE, S/P TKA 10/23/23. Please see the progress note below for an update on the physical therapy plan of care! Subjective Subjective: LEAVING FOR 16 DAY TRIP SUNDAY. STATES SHE DOES NOT SEE ANY REASON TO SEE A DOCTOR BEFORE SHE GOES. PATIENT REPORTS HER L FOOT IS FEELING BETTER BUT YESTERDAY SHE GOT A SUDDEN PAIN IN HER L KNEE WHEN SHE STEPPED OUT OF THE CAR RESULTING IN INCREASED PAIN AND SWELLING EVER SINCE. SHE REPORTS TAKING TYLONOL, ICING IT AND WEARING HER COMPRSSION STOCKING WITH MINIMAL RELIEF. THE BIKE, LEG PRESS AND HIP MACHINE LOOSENED IT UP A LITTLE BIT TODAY. FAR HER FOOT GOES SHE STATES SHE HAS 0-1/10 PAIN WITH WALKING LONG SHE WAS SUPPORTIVE SHOES OR SANDLES. UP TO 7-8/10 FOOT PAIN WALKING BAREFOOT. PATIENT REPORTS IF SHE STILL HAS PAIN AFTER SHE GETS BACK FROM VACATION SHE WILL FOLLOW UP WITH THE DOCTOR ABOUT FURTHER TESTING BUT SHE WANTS TO WAIT UNTIL SHE RETURNS. SHE REPORTS HER KNEE WAS DOING WELL AND IMPROVING UNTIL SHE STEPPED OUT OF THE CAR AND HURT IT YESTERDAY. Objective Objective/Function: THIS PATIENT AMBULATES INDEP INTO PT RECHECK TODAY WITH A MILD LIMP ON SLIGHTLY BENT L KNEE WITHOUT AD. SHE PRESENTS WITH INCREASED L KNEE PAIN, SWELLING AND STIFFNESS BUT DECREASED L FOOT/TOE TENDERNESS. THIS PT RECOMMENDED AD AT ALL TIMES DUE TO THIS BEING THE SECOND RECENT INCIDENT OF L KNEE GIVING OUT UNEXPECTEDLY. PATIENT REFUSING NEED FOR GAIT TRAINING AND STATES SHE DOES GOOD WITH A WALKING STICK BUT NOT CANE. SHE DECLINED MMT/STRAIN GAUGE TESTING AND STAIR TESTING TODAY DUE TO INCREASED PAIN BUT WOULD LIKE TO RESUME PT UPON RETURN FROM VACATION. UPON EXAM TODAY: WOMAC score: 25/96 Girth L Patella 40.5 cm Girth 6 inch suprapatellar 53 cm L knee flexion AROM: 114 degrees L knee ext AROM: -2 degrees STRENGTH: Patient deferred but able to actively flex hip against gravity, extend knee to -5 deg against gravity, demo good Active ROM of ankle and toes. Sensory deficit: NO STEPS: PATIENT DECLINED TESTING. Palpation: GOOD PATELLAR MOBILITY. FULLY HEALED INCISION. NO ACUTE KNEE TENDERNESS. THERE IS STILL TENDERNESS WITH PALPATION OF THE DISTAL 2ND AND 3RD METATARSAL PHALANGEAL JTS BUT TRACTION OF THE 2ND AND 3RD PHALANGES NO LONGER CAUSE PAIN. THERE IS STILL SOME MILD SWELLING BUT NOT BRUISING ON THE PLANTAR SURFACE IN THE REGION OF THE 2ND AND 3RD MTP JTS. Plan Plan Plan: RE-ASSESSMENT OF L KNEE AND L FOOT UPON RETURN FROM VACATION. Balance/Gait/Function al tests Balance/Special Test Scores WOMAC Total Score: 25 WOMAC Percentage: 73.9600 Goals Goals Goal 1:: PATIENT WILL HAVE DECREASED EDEMA IN RLE SYMMETRICAL TO LLE. Goal Time Frame: 6-8 Weeks Goal Progress: Progressing Goal 2:: PATIENT WILL HAVE INCREASED R KNEE ROM TO AT LEAST 0-120 DEG FLEXION. Goal Time Frame: 6-8 Weeks Goal Progress: Progressing Goal 3:: PATIENT WILL COMPLETE TUG IN < 15 SECS WITHOUT AD TO DEMONSTRATE IMPROVED GAIT STABILITY Goal Time Frame: 6-8 Weeks Goal Progress: Progressing Goal 4:: PATIENT WILL HAVE NORMAL GAIT PATTERN WITHOUT USE OF AD. Goal Progress: Progressing Goal 5:: PATIENT WILL BE ABLE TO NEGOTIATE STEPS WITH 1 HR WITH RECIPROCAL PATTERN WITHOUT LIMITATIONS. Goal Time Frame: 6-8 Weeks Goal Progress: Goal Met Goal 6:: PATIENT WILL SCORE AT LEAST 10 POINTS BETTER ON WOMAC Goal Time Frame: 6-8 Weeks Goal Progress: Goal Met Anticipated Interventions Anticipated Interventions Patient/Client Instruction: Educate patient on: Condition, Plan of Care and Risk Factors For the Purpose of:: To improve self management Therapeutic Exercise to Include: Strength training, Flexibilty training, Gait and locomotor training and Neuromotor development For the Purpose of:: To decrease pain, To increase ROM, To improve muscle performance and motor function, To increase tolerance to activity/condition/po sition, To improve ability of physical actions for home/community/work/l eisure, To improve gait and locomotor functions, To increase flexibility/ROM and To improve self management Manual Therapy Techniques to Include: Mobilization and Soft tissue mobilization For the Purpose of:: To decrease swelling/inflammation and To improve muscle performance and motor function Cryotherapy (ice pack, ice massage): Yes Vasopneumatic device: Yes For the Purpose of:: T (more content not included)... Normal [facility] Surgery Visit Reporton 01-15 Surgery Visit Report [facility] [address] [place] [address] OFFICE VISIT Date of Service: 01/16/24 MR#: [id number] Acct: [id number] Name: PHAM TEJADA Rep #: [id number] : 1945 Provider: Dr. Jia santiago MD Age/Sex: 78/F Location: [facility] Status: Signed Intake Vital Signs 11/06/23 14:02 01/14/24 10:49 01/16/24 08:52 Height 5 ft 5 in 5 ft 5 in 5 ft 5 in Weight: 171 lb 2 oz BMI 28.5 BP 123/76 H Blood Pressure Location Rt brachial Position Sitting Respiration 17 Pulse 82 Pulse Source Monitor Temp 97.3 F L Temp Source Temporal Pulse Oximetry (%) 98 Oxygen Delivery Method room air Intake Visit Reasons: positive cologuard Chief Complaint: positive cologuard Is patient in pain?: No Allergies amoxicillin (From Augmentin) Allergy (Intermediate, Verified 01/16/24 08:55) Rash clarithromycin (From Biaxin) Allergy (Intermediate, Verified 01/16/24 08:55) Rash clavulanic acid (From Augmentin) Allergy (Intermediate, Verified 01/16/24 08:55) Rash doxycycline Allergy (Intermediate, Verified 01/16/24 08:55) Hives Penicillins Allergy (Intermediate, Verified 01/16/24 08:55) Hives oxycodone (From Percocet) Allergy (Mild, Verified 01/16/24 08:55) Rash Sulfa (Sulfonamide Antibiotics) Allergy (Mild, Verified 01/16/24 08:55) Other quinapril Adverse Reaction (Intermediate, Verified 01/16/24 08:55) Other Medications ???Medication ???Instructions ???Recorded ???Confirmed ???Type amlodipine 5 mg tablet 5 mg PO DAILY 02/12/23 01/16/24 History estradiol 0.075 mg/24 hr weekly 1 patch transdermal QWEEK 02/12/23 01/16/24 History transdermal patch (Climara) levothyroxine 100 mcg tablet 100 mcg PO DAILY 02/12/23 01/16/24 History (Synthroid) azithromycin 250 mg tablet See Rx Instructions PO .COMPLEX 10 01/14/24 01/16/24 Rx (Zithromax Z-Franco) days #11 tabs prednisone 10 mg tablet 10 mg PO .COMPLEX 12 days #30 tabs 01/14/24 01/16/24 Rx acetaminophen 650 mg 650 mg PO Q12H 01/16/24 01/16/24 History tablet,extended release (Tylenol Arthritis Pain) ascorbic acid (vitamin C) 1,000 mg 1 g PO QDAY 01/16/24 01/16/24 History capsule cholecalciferol (vitamin D3) 25 25 mcg PO QDAY 01/16/24 01/16/24 History mcg (1,000 unit) capsule cyanocobalamin (vitamin B-12) 1,000 mcg PO QDAY 01/16/24 01/16/24 History 1,000 mcg capsule meloxicam 15 mg tablet 15 mg PO QDAY 01/16/24 01/16/24 History trazodone 50 mg tablet 50 mg PO QDAY 01/16/24 01/16/24 History Have you fallen in the past year?: No PFSH Medical History (Updated 01/16/24 @ 08:51 by Gege Dumont) Osteoarthritis of left knee Left knee pain Surgical History Status post glaucoma surgery S/P knee replacement Finger joint replaced H/O: hemorrhoidectomy History of thyroidectomy History of hysterectomy Social History household members: spouse current occupational status: retired Smoking Status: Never smoker alcohol intake: never substance use type: does not use seatbelt use: always do you feel safe at home: Yes additional social history: - Dimitrios- Retired HPI HPI HPI: 78-year-old female presents due to positive Cologuard for diagnostic colonoscopy. Patient's last colonoscopy was at age 70 per patient negative. Patient states she has bowel moods daily denies any blood. Patient denies any chronic abdominal pain/nausea/vomiting/ reflux. Patient denies any family history of colon cancer. Patient will be gone on a trip to [place] from January 19 through . ROS General General: No weight change, appetite, fatigue, colon cancer or breast cancer HEENT HEENT: Yes eye surgery; No difficulty swallowing, eye injury, swollen glands or hoarseness Endo Endocrine: Yes thyroid disease; No diabetes mellitus, thyroid cancer, Hair loss, heat intolerance or cold intolerance Skin Skin: No rash or changing moles Musc Musculoskeletal: Yes back problems and arthritis; No rheumatoid arthritis, gout or joint pain Cardio Cardiovascular: No murmur, pacemaker, heart disease, atrial fibrillation, high blood pressure, heart attack, heart stent, palpitations, shortness of breat with exertion or chest pain Psych Psychiatric: No depression, anxiety or hearing voices Resp Respiratory: No shortness of breath, No sleep apnea, No cough, No COPD, No asthma, No emphysema and No wheezing Gastro Gastrointestinal: No abdominal pain, No nausea or vomiting, No diarrhea, Yes constipation, No blood in stool, No acid reflux, No hemorrhoids, No ulcers, No gallbladder problem and No black,tarry stools Tony Hematologic: No blood thinners, No blood disorders, No bleeding, No anemia and No blood clots Neuro (more content not included)... Normal [facility] Office Visit Reporton 2023 Office Visit Report [facility] [address] [place] [address] OFFICE VISIT Date of Service: 01/14/24 MR#: [id number] Acct: [id number] Patient: PHAM TEJADA Rep #: [id number] : 1945 Provider: UMAIR Ocampo Age/Sex: 78/F Location: [facility] [place] Status: Signed Intake Vital Signs 11/06/23 14:02 01/14/24 10:49 Height 5 ft 5 in 5 ft 5 in Weight: 175 lb 2 oz BMI 29.1 BP 134/82 H 134/74 H Blood Pressure Location Lt brachial Position Sitting Respiration 17 Pulse 102 H Pulse Source NIBP Temp 97.8 F Temp Source Temporal Pulse Oximetry (%) 97 Oxygen Delivery Method room air Intake Visit Reasons: SINUS COMPLAINT/COUGH/FATIG UED Chief Complaint: cough, drainage, grn mucus Pin Inserter Regulator Required: No Is patient in pain?: No Allergies oxycodone (From Percocet) Allergy (Mild, Verified 01/14/24 10:58) Rash Sulfa (Sulfonamide Antibiotics) Allergy (Mild, Verified 01/14/24 10:58) Other Is last menstrual period known: No Post menopausal: Yes Patient : No Have you fallen in the past year?: No Nurse's Note: cough, drainage, x 7 days grn mucus now. pt believes sinus infection, requesting zpak. declines covid testing. [facility] Medical History (Updated 01/14/24 @ 11:04 by Jolene BLOCK, PA) Osteoarthritis of left knee Left knee pain Surgical History (Updated 11/06/23 @ 14:14 by Jenise Paredes) Status post glaucoma surgery S/P knee replacement Finger joint replaced H/O: hemorrhoidectomy History of thyroidectomy History of hysterectomy Social History (Updated 11/06/23 @ 14:14 by Jenise Paredes) household members: spouse current occupational status: retired Smoking Status: Never smoker alcohol intake: never substance use type: does not use seatbelt use: always do you feel safe at home: Yes additional social history: - Dimitrios- Retired [employer] HPI Chief Complaint: cough, drainage, grn mucus Details: PHAM TEJADA, is a 78 F who presents to the office today for concerns over sinus infection. Symptoms have been going on for more than a week. She started out as viral symptoms and is progressively gotten worse. She has used kkca-siu-hkphshw medication has not helped. She does have thick green mucus now. She is fatigued. She does have a headache. She does have a cough. ROS Const Constitutional: No other (6 system ROS completed with pertinent findings in the HPI otherwise normal.) Exam Const General: cooperative, no acute distress and well developed Orientation: alert, awake and oriented x3 HENMT Head: normocephalic and atraumatic Mouth: moist mucous membranes Eyes General: appearance normal, both eyes and all related structures Conjunctivae: conjunctivae normal Pupils: PERRL EOM: EOM intact bilaterally Neck Neck: normal visual inspection and no lymphadenopathy Carotids: no bruits Chest Chest palpation inspection: normal inspection of the chest Resp Effort Inspection: symmetric chest movement Auscultation: Bilateral: Clear to Auscultation Cardio Palpation: normal PMI Rate: regular rate Rhythm: regular rhythm Heart Sounds: S1 normal, S2 normal, no gallops, no murmurs and no rubs GI Inspection: normal to inspection Palpation: soft and no hepatosplenomegaly Neuro General: patient alert, patient awake, patient oriented x3, moves all extremities and CN's II-XI intact bilaterally Coding Level of Care Code Off vis,est,level 3 Diagnoses Acute bacterial sinusitis J01.90; B96.89 Cough R05.9 Assessment and Plan Assessment and Plan (1) Acute bacterial sinusitis: Status: Acute (2) Cough: Status: Acute Medications: New prednisone Take 4 pills for 3 days, 3 pills for 3 days, 2 pills for 3 days, take 1 pill for 3 days 12 days 30 tabs 0RF azithromycin (Zithromax Z-Franco) For 250 mg dose pack: take 500 mg today (day 1), then 250 mg for 9 days (days 2-10) PO 10 days 11 tabs 0RF Plan Advised patient to complete course of antibiotics given. Will also treat with prednisone. Advised patient on the importance of hydration. Recommended the use of hmiy-pbs-zuqebmy support from Advil, Tylenol and kgya-apm-vcczvax cold medications to help alleviate symptoms. Did review maximum dosing on each of these medications to avoid accidental overdose of medications. Advised if not improving to see PCP. Clinical Quality Measures Falls Risk Screening/Assistive Devices Have you fallen in the past year?: No 01/14/24 1139 A> Date Jolene Pimentel Signature: Date (if applicable) CC: Normal [facility] Absolute lymphocyte countOrd ered By: Clive Patel on 09-17-2023 Lymphocytes Auto (Unsp spec) [#/Vol] 1.53 10*3/uL 0.83-4.51 [facility] Automated lymphocyte count a s percentage of total leukocytesOrdered By: Clive Patel on 09-17-2023 Lymphocytes/100 WBC Auto (Unsp spec) 23.6 % 19-41 [facility] Basophil percentageOrdered B y: Clive Patel on 09-17-2023 Basophils/100 WBC (Bld) 1.9 % 0-1 [facility] Bilirubin [Mass/Vol] 0.50 mg/dL 0.20-1.00 [facility] Comment on above: For patients on eltr ombopag therapy, use of Dimension [place] TBIL is not recommended. Chloride [Moles/Vol] 105 mmol/L 98-107 [facility] Eosinophils/100 WBC (Bld) 2.8 % 0-5 [facility] Glucose [Mass/Vol] 126 mg/dL 74-106 [facility] Comment on above: Fasting Glucose resu lt greater than or equal to 126 mg/dL suggests DIABETES MELLITUS per A.D.A. criteria. Hemoglobin (Bld) [Mass/Vol] 14.0 g/dL 12.0-15.0 [facility] Monocytes/100 WBC (Bld) 6.8 % 0-10 [facility] Neutrophils (Bld) [#/Vol] 4.2 10*3/uL 2.0-7.7 [facility] Neutrophils/100 WBC (Bld) 64.6 % 47-70 [facility] Potassium [Moles/Vol] 3.8 mmol/L 3.5-5.1 [facility] Protein [Mass/Vol] 7.2 g/dL 6.4-8.2 [facility] Sodium [Moles/Vol] 139 mmol/L 136-145 [facility] WBC (Bld) [#/Vol] 6.5 10*3/uL 4.4-11.0 [facility] Determination of erythrocyte mean corpuscular volume (MCV)Ordered By: Clive Patel on 09-17-2023 MCV (RBC) [Entitic vol] 89.9 fL 81-99 [facility] Erythrocyte distribution wid th ratioOrdered By: Clive Patel on 09-17-2023 Erythrocyte distribution width (RBC) [Ratio] 13.9 % 11.6-14.6 [facility] Erythrocyte distribution wid th standard deviationOrdered By: Clive Patel on 09-17-2023 Erythrocyte distribution width (RBC) [Entitic vol] 45.5 fL 35.1-43.9 [facility] Hematocrit Auto (Bld) [Volum e fraction]Ordered By: Clive Patel on 09-17-2023 Hematocrit (Bld) [Volume fraction] 44.3 % 37-47 [facility] Immature granulocytes/100 WB C Auto (Bld)Ordered By: Clive Patel on 09-17-2023 Immature granulocytes/100 WBC (Bld) 0.300 % 0.0-0.9 [facility] Comment on above: IG% - Immature Granu locytes (promyelocytes, myelocytes and metamyelocytes) > 1% indicates that a LEFT SHIFT is Present. Laboratory - Chemistry and C hemistry - challengeOrdered By: Clive Patel on 09-17-2023 Albumin/Globulin [Mass ratio] 1.0 {ratio} 0.9-2.4 [facility] ALP [Catalytic activity/Vol] 56 U/L 45-117 [facility] ALT [Catalytic activity/Vol] 17 U/L 13-56 [facility] CO2 [Moles/Vol] 30.0 mmol/L 21.0-32.0 [facility] Globulin (S) [Mass/Vol] 3.6 g/dL 2.2-4.2 [facility] Urea nitrogen/Creatinine [Mass ratio] 17.9 mg/mg 10-20 [facility] Laboratory - Hematology and Cell countsOrdered By: Clive Patel on 09-17-2023 MCH (RBC) [Entitic mass] 28.4 pg 27.0-32.0 [facility] MCHC (RBC) [Mass/Vol] 31.6 g/dL 32-36 [facility] Nucleated RBC/100 WBC (Bld) [Ratio] 0 % 0-5 [facility] Platelet mean volume (Bld) [Entitic vol] 10.1 fL 6.2-12.0 [facility] Platelets (Bld) [#/Vol] 239 10*3/uL 150-450 [facility] No Panel InformationOrdered By: Clive Patel on 09-17-2023 Estimated GFR (MDRD) Amer 84 mL/min >60 [facility] Comment on above: GFR Calc Estimated GFR (MDRD) Non-Af Amer 70 mL/min >60 [facility] Comment on above: Non- GFR Calc Folate 28.00 ng/mL 3.1-55.4 [facility] Urine Microalbumin/Creatini ne Ratio 11.1 mg/g CRE <30 [facility] Vitamin B12 Level > 2000 pg/mL 211-911 [facility] RBC Auto (Bld) [#/Vol]Ordere d By: Clive Patel on 09-17-2023 RBC (Bld) [#/Vol] 4.93 10*6/uL 4.2-5.4 [facility] Serum or plasma calcium gui urement (mass/volume)Ordered By: Clive Patel on 09-17-2023 Calcium [Mass/Vol] 8.8 mg/dL 8.5-10.1 [facility] Serum or plasma creatinine m easurement (mass/volume)Ordered By: Clive Patel on 09-17-2023 Creatinine [Mass/Vol] 0.84 mg/dL 0.55-1.02 [facility] Comment on above: The validity of the calculated GFR & GFRAA in patients over 70 years has not been determined. Clinical correlation is essential. Serum or plasma thyroid stim ulating hormone (TSH) measurement (units/volume)Ordered By: Clive Patel on 09-17-2023 TSH Qn 0.53 uIU/mL 0.358-3.74 [facility] Serum or plasma urea nitroge n measurement (mass/volume)Ordered By: Clive Patel on 09-17-2023 Urea nitrogen [Mass/Vol] 15 mg/dL 7-18 [facility] Thin prep Papanicolaou smear with manual screeningOrdered By: Clive Patel on 09-17-2023 Thin prep Papanicolaou smear with manual screening 3.6 g/dL 3.2-5.0 [facility] Thin prep Papanicolaou smear with manual screening 15 U/L 15-37 [facility] Thin prep Papanicolaou smear with manual screening 4 5-15 [facility] Thin prep Papanicolaou smear with manual screening 5.3 mg/L NO RANGE EST. [facility] Thin prep Papanicolaou smear with manual screening 1.24 ng/dL 0.76-1.46 [facility] Urine creatinine measurement (mass/volume)Ordered By: Clive Patel on 09-17-2023 Creatinine (U) [Mass/Vol] 47.50 mg/dL NO RANGE EST. [facility] Basophil percentageOrdered B y: Clive Patel on 04-24-2023 Bilirubin [Mass/Vol] 0.40 mg/dL 0.20-1.00 [facility] Comment on above: For patients on eltr ombopag therapy, use of Dimension [place] TBIL is not recommended. Chloride [Moles/Vol] 107 mmol/L 98-107 [facility] Glucose [Mass/Vol] 109 mg/dL 74-106 [facility] Comment on above: Fasting Glucose resu lt from 100 to 125 mg/dL suggests IMPAIRED HOMEOSTASIS per A.D.A. criteria. Potassium [Moles/Vol] 3.5 mmol/L 3.5-5.1 [facility] Protein [Mass/Vol] 7.4 g/dL 6.4-8.2 [facility] Sodium [Moles/Vol] 140 mmol/L 136-145 [facility] Laboratory - Chemistry and C hemistry - challengeOrdered By: Clive Patel on 04-24-2023 ALP [Catalytic activity/Vol] 57 U/L 45-117 [facility] ALT [Catalytic activity/Vol] 22 U/L 13-56 [facility] CO2 [Moles/Vol] 25.0 mmol/L 21.0-32.0 [facility] Globulin (S) [Mass/Vol] 3.6 g/dL 2.2-4.2 [facility] Urea nitrogen/Creatinine [Mass ratio] 23.2 mg/mg 10-20 [facility] No Panel InformationOrdered By: Clive Patel on 04-24-2023 Estimated GFR (MDRD) Amer 99 mL/min >60 [facility] Comment on above: GFR Calc Estimated GFR (MDRD) Non-Af Amer 82 mL/min >60 [facility] Comment on above: Non- GFR Calc Urine Microalbumin/Creatini ne Ratio 16.4 mg/g CRE <30 [facility] Serum or plasma albumin gui urement (mass/volume)Ordered By: Clive Patel on 04-24-2023 Albumin [Mass/Vol] 3.8 g/dL 3.2-5.0 [facility] Serum or plasma albumin/glob ulin mass ratioOrdered By: Clive Patel on 04-24-2023 Albumin/Globulin [Mass ratio] 1.1 {ratio} 0.9-2.4 [facility] Serum or plasma calcium gui urement (mass/volume)Ordered By: Clive Patel on 04-24-2023 Calcium [Mass/Vol] 9.2 mg/dL 8.5-10.1 [facility] Serum or plasma creatinine m easurement (mass/volume)Ordered By: Clive Patel on 04-24-2023 Creatinine [Mass/Vol] 0.73 mg/dL 0.55-1.02 [facility] Comment on above: The validity of the calculated GFR & GFRAA in patients over 70 years has not been determined. Clinical correlation is essential. Serum or plasma urea nitroge n measurement (mass/volume)Ordered By: Clive Patel on 04-24-2023 Urea nitrogen [Mass/Vol] 17 mg/dL 7-18 [facility] Thin prep Papanicolaou smear with manual screeningOrdered By: Clive Patel on 04-24-2023 Thin prep Papanicolaou smear with manual screening 16 U/L 15-37 [facility] Thin prep Papanicolaou smear with manual screening 8 5-15 [facility] Thin prep Papanicolaou smear with manual screening 12.2 mg/L NO RANGE EST. [facility] Urine creatinine measurement (mass/volume)Ordered By: Clive Patel on 04-24-2023 Creatinine (U) [Mass/Vol] 74.60 mg/dL NO RANGE EST. [facility] Basophil percentageOrdered B y: Clive Patel on 11-10-2022 Bilirubin [Mass/Vol] 0.50 mg/dL 0.20-1.00 [facility] Comment on above: For patients on eltr ombopag therapy, use of Dimension [place] TBIL is not recommended. Chloride [Moles/Vol] 107 mmol/L 98-107 [facility] Cholesterol [Mass/Vol] 219 mg/dL <200 [facility] Comment on above: <200 mg/dL Desirable 200-240 mg/dL Borderline >240 mg/dL High Risk Glucose [Mass/Vol] 94 mg/dL 74-106 [facility] Potassium [Moles/Vol] 3.7 mmol/L 3.5-5.1 [facility] Protein [Mass/Vol] 7.5 g/dL 6.4-8.2 [facility] Sodium [Moles/Vol] 141 mmol/L 136-145 [facility] Triglyceride [Mass/Vol] 140 mg/dL <199 [facility] Comment on above: The drugs N-Acetylcy steine and Metamizole may falsely depress this assay.Serum Triglycerides Reference Interval Normal <150 mg/dL Borderline high 150 - 199 mg/dL High 200 - 499 mg/dL Very High > or = 500 mg/dL Laboratory - Chemistry and C hemistry - challengeOrdered By: Clive Patel on 11-10-2022 ALP [Catalytic activity/Vol] 59 U/L 45-117 [facility] ALT [Catalytic activity/Vol] 22 U/L 13-56 [facility] CO2 [Moles/Vol] 28.0 mmol/L 21.0-32.0 [facility] Globulin (S) [Mass/Vol] 3.9 g/dL 2.2-4.2 [facility] Urea nitrogen/Creatinine [Mass ratio] 21.7 mg/mg 10-20 [facility] No Panel InformationOrdered By: Clive Patel on 11-10-2022 Estimated GFR (MDRD) Amer 98 mL/min >60 [facility] Comment on above: GFR Calc Estimated GFR (MDRD) Non-Af Amer 81 mL/min >60 [facility] Comment on above: Non- GFR Calc Thyroid Stimulating Hormone (TSH) 1.07 uIU/mL 0.358-3.74 [facility] Urine Microalbumin/Creatini ne Ratio TNP [facility] Comment on above: Test not performed Serum or plasma albumin gui urement (mass/volume)Ordered By: Clive Patel on 11-10-2022 Albumin [Mass/Vol] 3.6 g/dL 3.2-5.0 [facility] Serum or plasma albumin/glob ulin mass ratioOrdered By: Clive Patel on 11-10-2022 Albumin/Globulin [Mass ratio] 0.9 {ratio} 0.9-2.4 [facility] Serum or plasma calcium gui urement (mass/volume)Ordered By: Clive Patel on 11-10-2022 Calcium [Mass/Vol] 9.2 mg/dL 8.5-10.1 [facility] Serum or plasma cholesterol in HDL measurement (mass/volume)Ordered By: Clive Patel on 11-10-2022 Cholesterol in HDL [Mass/Vol] 66 mg/dL >40 [facility] Comment on above: The drugs N-Acetylcy steine and Metamizole may falsely depress this assay. Reference Range HDL <40 mg/dL Low HDL Cholesterol HDL >or= 60 mg/dL High HDL Cholesterol Serum or plasma cholesterol in VLDL measurement (mass/volume)Ordered By: Clive Patel on 11-10-2022 Cholesterol in VLDL [Mass/Vol] 28 mg/dL 5-40 [facility] Serum or plasma creatinine m easurement (mass/volume)Ordered By: Clive Patel on 11-10-2022 Creatinine [Mass/Vol] 0.74 mg/dL 0.55-1.02 [facility] Comment on above: The validity of the calculated GFR & GFRAA in patients over 70 years has not been determined. Clinical correlation is essential. Serum or plasma low density lipoprotein (LDL) cholesterol measurement (mass/volume)Ordered By: Clive Patel on 11-10-2022 Cholesterol in LDL [Mass/Vol] 125 mg/dL 0-130 [facility] Serum or plasma urea nitroge n measurement (mass/volume)Ordered By: Clive Patel on 11-10-2022 Urea nitrogen [Mass/Vol] 16 mg/dL 7-18 [facility] Thin prep Papanicolaou smear with manual screeningOrdered By: Clive Patel on 11-10-2022 Thin prep Papanicolaou smear with manual screening 17 U/L 15-37 [facility] Thin prep Papanicolaou smear with manual screening 6 5-15 [facility] Thin prep Papanicolaou smear with manual screening < 5.0 mg/L NO RANGE EST. [facility] Urine creatinine measurement (mass/volume)Ordered By: Clive Patel on 11-10-2022 Creatinine (U) [Mass/Vol] 35.40 mg/dL NO RANGE EST. [facility] Absolute lymphocyte counton 09-21-2021 Lymphocytes Auto (Unsp spec) [#/Vol] 1.33 10*3/uL 0.83-4.51 [facility] Work Phone: Basophil percentageon 2021 Basophils/100 WBC (Bld) 2.2 % 0-1 [facility] Work Phone: Bilirubin [Mass/Vol] 0.60 mg/dL 0.20-1.00 [facility] Work Phone: Comment on above: For patients on eltr ombopag therapy, use of Dimension [place] TBIL is not recommended. Chloride [Moles/Vol] 104 mmol/L 98-107 [facility] Work Phone: Eosinophils/100 WBC (Bld) 4.1 % 0-5 [facility] Work Phone: Glucose [Mass/Vol] 120 mg/dL 74-106 [facility] Work Phone: Comment on above: Fasting Glucose resu lt from 100 to 125 mg/dL suggests IMPAIRED HOMEOSTASIS per A.D.A. criteria. Neutrophils (Bld) [#/Vol] 3.5 10*3/uL 2.0-7.7 [facility] Work Phone: Neutrophils/100 WBC (Bld) 62.1 % 47-70 [facility] Work Phone: Potassium [Moles/Vol] 3.5 mmol/L 3.5-5.1 [facility] Work Phone: Protein [Mass/Vol] 7.1 g/dL 6.4-8.2 [facility] Work Phone: Sodium [Moles/Vol] 137 mmol/L 136-145 [facility] Work Phone: WBC (Bld) [#/Vol] 5.6 10*3/uL 4.4-11.0 [facility] Work Phone: [phone] Blood erythrocytes count (nu mber/volume)on 09-21-2021 RBC (Bld) [#/Vol] 4.81 10*6/uL 4.2-5.4 [facility] Work Phone: [phone] Blood hemoglobin measurement (mass/volume)on 09-21-2021 Hemoglobin (Bld) [Mass/Vol] 14.3 g/dL 12.0-15.0 [facility] Work Phone: [phone] Blood lymphocytes/100 leukoc yteson 09-21-2021 Lymphocytes/100 WBC (Bld) 23.8 % 19-41 [facility] Work Phone: [phone] Blood monocytes/100 leukocyt eson 09-21-2021 Monocytes/100 WBC (Bld) 7.3 % 0-10 [facility] Work Phone: [phone] Blood platelet mean volumeon 09-21-2021 Platelet mean volume (Bld) [Entitic vol] 10.4 fL 6.2-12.0 [facility] Work Phone: [phone] Determination of erythrocyte mean corpuscular volume (MCV)on 09-21-2021 MCV (RBC) [Entitic vol] 92.7 fL 81-99 [facility] Work Phone: [phone] Hematocrit Auto (Bld) [Volum e fraction]on 09-21-2021 Hematocrit (Bld) [Volume fraction] 44.6 % 37-47 [facility] Work Phone: [phone] Laboratory - Chemistry and C hemistry - challengeon 09-21-2021 ALP [Catalytic activity/Vol] 53 U/L 45-117 [facility] Work Phone: [phone] ALT [Catalytic activity/Vol] 23 U/L 13-56 [facility] Work Phone: [phone] CO2 [Moles/Vol] 26.0 mmol/L 21.0-32.0 [facility] Work Phone: [phone] Free T4 [Mass/Vol] 1.23 ng/dL 0.76-1.46 [facility] Work Phone: Globulin (S) [Mass/Vol] 3.5 g/dL 2.2-4.2 [facility] Work Phone: [phone] Urea nitrogen/Creatinine [Mass ratio] 23.9 mg/mg 10-20 [facility] Work Phone: [phone] Laboratory - Hematology and Cell countson 09-21-2021 Erythrocyte distribution width (RBC) [Entitic vol] 44.2 fL 35.1-43.9 [facility] Work Phone: [phone] Erythrocyte distribution width (RBC) [Ratio] 13.0 % 11.6-14.6 [facility] Work Phone: [phone] Immature granulocytes/100 WBC (Bld) 0.500 % 0.0-0.9 [facility] Work Phone: [phone] Comment on above: IG% - Immature Granu locytes (promyelocytes, myelocytes and metamyelocytes) > 1% indicates that a LEFT SHIFT is Present. MCH (RBC) [Entitic mass] 29.7 pg 27.0-32.0 [facility] Work Phone: [phone] Nucleated RBC/100 WBC (Bld) [Ratio] 0 % 0-5 [facility] Work Phone: [phone] MCHC Auto (RBC) [Mass/Vol]on 09-21-2021 MCHC (RBC) [Mass/Vol] 32.1 g/dL 32-36 [facility] Work Phone: [phone] No Panel Informationon 09-21 Estimated GFR (MDRD) Amer 81 mL/min >60 [facility] Work Phone: [phone] Comment on above: GFR Calc Estimated GFR (MDRD) Non-Af Amer 67 mL/min >60 [facility] Work Phone: [phone] Comment on above: Non- GFR Calc Hepatitis C Antibody Non-Reactive Nonreactive [facility] Work Phone: [phone] Comment on above: Non Reactive: < 0.8 Equivocal: >/= 0.8 to < 1.0 Reactive: >/= 1.0The CDC recommends that a reactive/equivocal HCV antibody result be followed up by the HCV Nucleic Acid Amplificationtest (911438) Thyroid Stimulating Hormone (TSH) 0.68 uIU/mL 0.358-3.74 [facility] Work Phone: Urine Microalbumin/Creatini ne Ratio 13.8 mg/g CRE <30 [facility] Work Phone: [phone] Platelets bldon 09-21-2021 Platelets (Bld) [#/Vol] 221 10*3/uL 150-450 [facility] Work Phone: [phone] Serum or plasma albumin gui urement (mass/volume)on 09-21-2021 Albumin [Mass/Vol] 3.6 g/dL 3.2-5.0 [facility] Work Phone: [phone] Serum or plasma albumin/glob ulin mass ratioon 09-21-2021 Albumin/Globulin [Mass ratio] 1.0 {ratio} 0.9-2.4 [facility] Work Phone: [phone] Serum or plasma calcium gui urement (mass/volume)on 09-21-2021 Calcium [Mass/Vol] 8.5 mg/dL 8.5-10.1 [facility] Work Phone: [phone] Serum or plasma creatinine m easurement (mass/volume)on 09-21-2021 Creatinine [Mass/Vol] 0.88 mg/dL 0.55-1.02 [facility] Work Phone: Comment on above: The validity of the calculated GFR & GFRAA in patients over 70 years has not been determined. Clinical correlation is essential. Serum or plasma urea nitroge n measurement (mass/volume)on 09-21-2021 Urea nitrogen [Mass/Vol] 21 mg/dL 7-18 [facility] Work Phone: [phone] Thin prep Papanicolaou smear with manual screeningon 09-21-2021 Thin prep Papanicolaou smear with manual screening 12 U/L 15-37 [facility] Work Phone: [phone] Thin prep Papanicolaou smear with manual screening 7 5-15 [facility] Work Phone: Thin prep Papanicolaou smear with manual screening 6.9 mg/L NO RANGE EST. [facility] Work Phone: Urine creatinine measurement (mass/volume)on 09-21-2021 Creatinine (U) [Mass/Vol] 49.80 mg/dL NO RANGE EST. [facility] Work Phone: Gram stain for investigation of transfusion reactionon 09-02-2021 Microscopic observation Gram stain Nom (Unsp spec) [facility] Work Phone: No Panel Informationon 09-02 Nasopharyngeal Culture No growth in 48 hours. [facility] Work Phone: Office Visit: UC: Coughtorsten Documentation of current medications (procedure) Done Invalid Interpretation Code [facility] Work Phone: Tobacco smoking status NHIS Never Invalid Interpretation Code [facility] Work Phone: Tobacco use CPHS Never smoker Invalid Interpretation Code [facility] Work Phone: Vital Signs Date Time Vital Sign Value Performing Clinician Faci lity 12-07-2024 11:35-0400 Body height 165.[address] Clive Patel MD Work Phone: [facility] 12-07-2024 11:35-0400 Body mass index (BMI) [Ratio] 29.2 kg/m2 Dr. Clive Patel MD Work Phone: [facility] 12-07-2024 11:35-0400 Body temperature 97.6 [degF] Dr. Clive Patel MD Work Phone: [facility] 12-07-2024 11:35-0400 Body weight 79.[address] Clive Patel MD Work Phone: [facility] 12-07-2024 11:35-0400 Diastolic blood pressure 80 mm[Hg] Dr. Clive Patel MD Work Phone: [facility] 12-07-2024 11:35-0400 Heart rate 102 /min Dr. Clive Patel MD Work Phone: [facility] 12-07-2024 11:35-0400 Respiratory rate 19 /min Dr. Clive Patel MD Work Phone: [facility] 12-07-2024 11:35-0400 SaO2% (BldA) [Mass fraction] 97 % Dr. Clive Patel MD Work Phone: [facility] 12-07-2024 11:35-0400 Systolic blood pressure 118 mm[Hg] Dr. Clive Patel MD Work Phone: [facility] 11-10-2024 09:51-0400 Body height 165.[address] Clive Patel MD Work Phone: [facility] 11-10-2024 09:47-0400 Body mass index (BMI) [Ratio] 28.8 kg/m2 Dr. Clive Patel MD Work Phone: [facility] 11-10-2024 09:47-0400 Body weight 78.[address] Clive Patel MD Work Phone: [facility] 11-10-2024 09:47-0400 Diastolic blood pressure 70 mm[Hg] Dr. Clive Patel MD Work Phone: [facility] 11-10-2024 09:47-0400 Systolic blood pressure 138 mm[Hg] Dr. Clive Patel MD Work Phone: [facility] 02-12-2023 13:22-0400 Body height 165.[address] Clive Patel Work Phone: [facility] 09-17-2016 11:08-0400 BMI (Body Mass Index) 27.62 kg/m2 Ignacia Whitaker LPN [facility] Work Phone: 09-17-2016 11:08-0400 Body Temperature 98.5 [degF] Ignacia Whitaker LPN [facility] Work Phone: 09-17-2016 11:08-0400 BP Diastolic 90 mm[Hg] Ignacia Whitaker LPN [facility] Work Phone: 09-17-2016 11:08-0400 BP Systolic 136 mm[Hg] Ignacia Whitaker LPN [facility] Work Phone: 09-17-2016 11:08-0400 Height 165.1 cm Ignacia Whitaker LPN [facility] Work Phone: 09-17-2016 11:08-0400 Pulse (Heart Rate) 75 /min Ignacia Whitaker LPN [facility] Work Phone: 09-17-2016 11:08-0400 Pulse Oximetry 98 % Ignacia Whitaker LPN [facility] Work Phone: 09-17-2016 11:08-0400 Respiratory Rate 16 /min Ignacia Whitaker LPN [facility] Work Phone: 09-17-2016 11:08-0400 Weight 75.3 kg Ignacia Whitaker LPN [facility] Work Phone: Encounters Encounter Date Encounter Type Care Provider Facility Start: 12-25-2024 End: 12-25-[address] Clive Patel MD Work Phone: -Outpatient [facility] Start: 12-25-2024 End: 12-25-2024 Patient encounter procedure Cande Ryan [employer] -[facility] Work Phone: Start: 12-25-2024 End: 12-25-2024 ambulatory Cande Ryan [employer] Facility:[facility] Start: 12-07-2024 End: 12-07-2024 Patient encounter procedure Sunday Casiano [employer] [facility] Work Phone: Start: 12-07-2024 End: 12-07-[address] Clive Patel MD Work Phone: -[facility] Start: 11-10-2024 End: 11-10-2024 Patient encounter procedure Cande Ryan [employer] -[facility] Work Phone: Start: 11-10-2024 End: 11-10-2024 Patient encounter status Cande Ryan [employer] [facility] Start: 11-10-2024 End: 11-10-[address] Clive Patel MD Work Phone: [facility] Start: 05-23-2024 Encounter for preprocedural laboratory examination Clive Patel [facility] Start: 04-24-2024 End: 04-24-2024 ambulatory CLIVE PATEL MD Facility:[facility] Start: 04-24-2024 End: 04-24-2024 Patient encounter procedure CLIVE PATEL MD [facility] Start: 04-22-2024 End: 04-22-2024 ambulatory AMAYA BEATTY Facility:[facility] Start: 04-14-2024 End: 04-14-2024 ambulatory Clive Patel Facility:[facility] Start: 02-18-2024 End: 02-18-2024 ambulatory Clive Patel Facility:[facility] Start: 02-14-2024 End: 02-14-2024 ambulatory Clive Patel Facility:[facility] Start: 02-11-2024 End: 02-11-2024 ambulatory Clive Patel Facility:[facility] Start: 01-16-2024 End: 01-16-2024 ambulatory Clive Patel Facility:[facility] Start: 01-14-2024 End: 01-14-2024 ambulatory Jolene BLOCK Facility:[facility] Start: 09-18-2023 End: 09-18-2023 ambulatory [facility] Work Phone: Start: 09-18-2023 End: 09-18-2023 Patient encounter procedure [facility] Work Phone: Start: 09-17-2023 End: 09-17-2023 ambulatory [facility] Work Phone: Start: 09-17-2023 End: 09-17-2023 Patient encounter procedure [facility] Work Phone: Start: 04-24-2023 End: 04-24-[address] Clive Patel Work Phone: [facility] Work Phone: Start: 04-24-2023 End: 04-24-[address] Clive Patel Work Phone: [facility] Work Phone: Start: 02-12-2023 End: 02-12-[address] Clive Patel Work Phone: [facility] Work Phone: Start: 02-02-2023 End: 02-02-[address] Clive Patel Work Phone: [facility]-Ultrasound, [facility] Work Phone: Start: 12-22-2022 End: 12-22-2022 ambulatory [facility] Work Phone: Start: 12-22-2022 End: 12-22-2022 Patient encounter procedure [facility] Work Phone: Start: 12-12-2022 End: 12-12-2022 ambulatory [facility] Work Phone: Start: 12-12-2022 End: 12-12-2022 [facility] Start: 11-10-2022 End: 11-10-2022 ambulatory [facility] Work Phone: Start: 11-10-2022 End: 11-10-2022 [facility] Work Phone: Start: 09-26-2021 End: 09-26-2021 Patient encounter procedure [facility] Start: 09-21-2021 End: 09-21-2021 [facility] Start: 09-02-2021 End: 09-02-2021 [facility] Procedures Date Procedure Procedure Detail Performing Clinician Start: 12-25-2024 Screening mammography Lex Patel MD Work Phone: Start: 09-18-2023 Ultrasonography of breast Start: 02-12-2023 Radiologic examinati on of knee Dr. Clive Patel Work Phone: Start: 02-02-[address] Clive Patel Work Phone: Start: 12-22-2022 End: 12-22-2022 Ultrasonography of breast Start: 12-12-2022 Screening mammography Start: 09-26-2021 Screening mammography Start: 09-02-2021 Investigation of tra nsfusion reaction Start: 09-02-2021 Nasopharyngeal Culture Start: 01-20-2016 End: 01-20-2016 Drain/inject, joint/bursa [facility] Estuardo Work Phone: Plan of Treatment Date Care Activity Detail Author Start: 09-17-2016 End: 09-17-2016 Appointment Appointment [facility] Work Phone: Start: 01-20-2016 End: 01-20-2016 X-ray exam of elbow X-Ray, Elbow [facility] Work Phone: Patient Education ACUTE%20COUGH [facility] Work Phone: Immunizations Immunization Date Immunization Notes Care Provider Nancy enamorado 01-16-2024 Pfizer Covid-19 (Comirnaty) Dr. Clive Patel MD Work Phone: [facility] 02-16-2023 Pfizer Covid-19 (Comirnaty) Dr. Clive Patel MD Work Phone: [facility] 02-16-2023 RSV Adult BiValent (Abrysvo) Dr. Clive Patel MD Work Phone: [facility] 01-18-2023 influenza, injectabl e, quadrivalent, preservative free Dr. Clive Patel MD Work Phone: [facility] 11-07-2022 Pneumococcal Vaccine PCV20 (Prevnar 20) Dr. Clive Patel MD Work Phone: [facility] 11-07-2022 tetanus toxoid, redu montez diphtheria toxoid, and acellular pertussis vaccine, adsorbed Dr. Clive Patel MD Work Phone: [facility] 04-02-2022 Covid Pfizer Bivalen t Booster Dr. Clive Patel MD Work Phone: [facility] 03-09-2022 influenza, injectabl e, quadrivalent, preservative free Dr. Clive Patel MD Work Phone: [facility] 08-25-2021 Covid (Pfizer) Dr. Clive canales MD Work Phone: [facility] 02-20-2021 Covid (Pfizer) Dr. Clive canales MD Work Phone: [facility] 01-30-2021 influenza, injectabl e, quadrivalent, preservative free Dr. Clive Patel MD Work Phone: [facility] 07-16-2020 Covid (Pfizer) Dr. Clive canales MD Work Phone: [facility] 06-17-2020 Covid (Pfizer) Dr. Clive canales MD Work Phone: [facility] 01-23-2020 influenza, injectabl e, quadrivalent, preservative free Dr. Clive Patel MD Work Phone: [facility] 01-23-[address] Clive Patel MD Work Phone: [facility] 03-14-2019 influenza, injectabl e, quadrivalent, preservative free Dr. Clive Patel MD Work Phone: [facility] 03-08-2018 influenza, injectabl e, quadrivalent, preservative free Dr. Clive Patel MD Work Phone: [facility] 02-11-2018 influenza, high dose seasonal, preservative-free Dr. Clive Patel MD Work Phone: [facility] 02-15-2017 influenza, injectabl e, quadrivalent, preservative free Dr. Clive Patel MD Work Phone: [facility] 01-10-2016 influenza, injectabl e, quadrivalent, preservative free Dr. Clive Patel MD Work Phone: [facility] 02-20-2014 pneumococcal polysaccharide vaccine, [address] Clive Patel MD Work Phone: [facility] 03-06-2013 influenza, injectabl e, quadrivalent, preservative free Dr. Clive Patel MD Work Phone: [facility] 02-15-2012 influenza, injectabl e, quadrivalent, preservative free Dr. Clive Patel MD Work Phone: [facility] Payers Date Payer Category Payer Self-pay [id number] 2023 Private Health Insurance 101 [id number] 1945 Unknown [id number] 2.16.8 [id number] Medicare [id number] Unknown [id number] Unknown [id number] 2.16.8 [id number] Unknown [id number] 2.16.8 [id number] Unknown [id number] 2.16.8 [id number] Unknown [id number] 2.16.8 [id number] Unknown [id number] 2.16.8 [id number] Unknown [id number] 2.16.8 [id number] Unknown [id number] 2.16.8 [id number] Unknown [id number] 2.16.8 [id number] Unknown [id number] 2.16.8 [id number] Unknown [id number] 2.16.8 [id number] Unknown [id number] 2.16.8 [id number] Social History Date Type Detail Facility Start: 08-21-2013 End: 02-12-2023 Tobacco smoking status IDIS Unknown if ever smoked [facility] Start: 1945 Sex Assigned At Female [facility] Tobacco smoking status No Smokin g Status Entered [facility] Start: 02-07-2024 Tobacco smoking stat us NHIS Never smoked tobacco (finding) [facility] Clinical Notes 02-11-2024 to 12-07-2024 Note Date & Type Note Facility 12-07-2024 Progress note [facility] 12-07-2024 Progress note Note Date/Time December 07, 2024 12:09pm [facility] [address], [address] [place] [address] OFFICE VISIT Date of Service: 12/07/24 MR#: [id number] Acct: [id number] Name: PHAM TEJADA Rep #: [id number] : 1945 Provider: EVELYN Casiano Age/Sex: 79/F Location: [facility] Status: Signed Intake Vital Signs 11/10/24 09:51 12/07/24 11:35 Height 5 ft 5 in 5 ft 5 in Weight: 176 lb BMI 29.2 BP 118/80 Blood Pressure Location Lt brachial Position Sitting Respiration 19 H Pulse 102 H Pulse Source Monitor Temp 97.6 F L Temp Source Oral Pulse Oximetry (%) 97 Oxygen Delivery Method room air Intake Visit Reasons: SINUS PRESSURE/PAIN Chief Complaint: SINUS PRESSURE/PAIN Is patient in pain?: No Allergies amoxicillin (From Augmentin) Allergy (Intermediate, Verified 12/07/24 11:36) Rash clarithromycin (From Biaxin) Allergy (Intermediate, Verified 12/07/24 11:36) Rash clavulanic acid (From Augmentin) Allergy (Intermediate, Verified 12/07/24 11:36) Rash doxycycline Allergy (Intermediate, Verified 12/07/24 11:36) Hives Penicillins Allergy (Intermediate, Verified 12/07/24 11:36) Hives oxycodone (From Percocet) Allergy (Mild, Verified 12/07/24 11:36) Rash Sulfa (Sulfonamide Antibiotics) Allergy (Mild, Verified 12/07/24 11:36) Other quinapril Adverse Reaction (Intermediate, Verified 12/07/24 11:36) Other Medications ?Medication ?Instructions ?Recorded ?Confirmed ?Type amlodipine 5 mg tablet 5 mg PO DAILY 02/12/2312/07 History levothyroxine 100 mcg tablet 100 mcg PO DAILY 02/12/23 12/07/24 History (Synthroid) acetaminophen 650 mg 650 mg PO Q12H PRN pain 09/0412/07/24 History tablet,extended release (Tylenol Arthritis Pain) cholecalciferol (vitamin D3) 25 25 mcg PO QDAY 12/07/24 History mcg (1,000 unit) capsule cyanocobalamin (vitamin B-12) 1,000 mcg PO QDAY 12/07/24 History 1,000 mcg capsule meloxicam 15 mg tablet 15 mg PO QDAY 01/16/2412/07 History trazodone 50 mg tablet 50 mg PO QDAY 01/16/2412/07 History Climara 0.075 mg/24 hr transdermal 1 patch transdermal QWEEK #12 ea 11/10/24 12/07/24 Rx patch (estradiol) azithromycin 250 mg tablet See Rx Instructions PO .COM PLEX 12/07/24 12/07/24 Rx #11 tabs prednisone 10 mg tablet 10 mg PO .COMPLEX 12 days #3 0 tabs 12/07/24 12/07/24 Rx Have you fallen in the past year?: No Nurse's Note: pt reports having issues with sinus congestion and pressure/ cough for the past few weeks. pt states she has been trying to manage it with OTC medications however over the past week has noticed a yellow mucous that she is coughing up especially in the am. pt reports she has a trip scheduled soon and is hoping to have resolution to her symptoms. [facility] Medical History Positive colorectal cancer screening using Cologuard test Loss of hearing Wears dentures History of steroid therapy Arthritis Thyroid disease Non-smoker History of edema Osteoarthritis of left knee Left knee pain Surgical History History of colonoscopy Status post glaucoma surgery S/P knee replacement Finger joint replaced H/O: hemorrhoidectomy History of thyroidectomy History of hysterectomy Social History household members: spouse current occupational status: retired Smoking Status: Never smoker alcohol intake: never substance use type: does not use seatbelt use: always do you feel safe at home: Yes additional social history: - Dimitrios- Retired HPI HPI Chief Complaint: SINUS PRESSURE/PAIN Details: PHAM TEJADA, is a 79 F who presents to the office today for concerns regarding sinus pain/pressure for 2 weeks. She states new productive cough with yellow sputum. ROS Const Constitutional: No body ache, chills, excessive sweating, fatigue, fever(s), frequent falls, headache(s), snoring, weight change, sleep problems, abnormal sleep pattern or change in appetite Eyes Eyes: No blurry vision, change in vision, eye pain or Light sensitivity ENT ENT: No abnormal hearing, ear or mastoid pain, tinnitus, nasal congestion, headache(s), neck pain or sore throat Resp Respiratory: No cough, shortness of breath, snoring or wheezing Cardio Cardiology: No chest pain at rest, chest pain with exertion, excessive sweating,shortness of breath, dyspnea on exertion, lightheadedness, orthopnea or palpitations Gastro GI: No abdominal pain, change in bowel habits, constipation, cramping, diarrhea,nausea/dyspepsia or vomiting Genitourinary-Female: No burning urination, painful urination, urinary incontinence, urinary frequency, abnormal vaginal bleeding or pelvic pain Musc Musculoskeletal: No abnormal gait, joint pain, back pain, limited range of motion, neck pain, numbness or tingling Skin Skin: No dry skin, redness, lesions, itchy eyes, rash or wounds Neuro Neurology: No abnormal gait, abnormal hearing, frequent falls, headache(s), memory loss, numbness or tingling Psych Psychiatric: No abnormal sleep pattern, No anxiety, No change in appetite, No irritability, No memory loss and No Thoughts of harming yourself/Others Endo Endocrine: No cold intolerance, excessive sweating, fatigue, flushing, heat intolerance, increased thirst/drinking, increased hunger or weight change Aller/Imm Allergy/Immunologic: No itchy eyes, seasonal allergy symptoms, hives or wheezing Tony/Lymp Hematologic/Lymphatic: No easy bleeding, easy bruising, enlarged lymph nodes or other Exam Const General: cooperative, healthy appearing, comfortable and no acute distress Orientation: alert, awake and oriented x3 HENMT Head: normal to inspection and normocephalic Ears: hearing grossly normal bilaterally, external ears normal and TM's normal bilaterally Nose: external nose normal, nares normal and no nasal discharge Face and sinus: normal facial exam and sinuses nontender Mouth: oral mucosae normal, lip normal, tongue normal, oropharynx normal and moist mucous membranes Throat: tonsils normal, uvula midline, posterior oropharynx abnormal cobblestoning and erythema and postnasal drainage Eyes General: appearance normal, both eyes and all related structures Neck Neck: normal visual inspection and no lymphadenopathy Carotids: normal carotid upstroke Lymphatic: no lymphadenopathy noted Chest Chest palpation & inspection: normal inspection of the chest Resp Effort & Inspection: normal respiratory effort, able to speak in complete sentences, symmetric chest movement, no cough and no stridor Auscultation: Bilateral: Clear to Auscultation Cardio Rate: regular rate Rhythm: regular rhythm Heart Sounds: S1 normal, S2 normal and no murmurs GI Inspection: normal to inspection Auscultation: normal bowel sounds Palpation: soft Skin General: no rashes or lesions noted Neuro Speech: speech normal Extrem General: normal to inspection and capillary refill normal Coding Level of Care Code Off vis,est,level 3 Diagnoses Upper respiratory tract infection, unspecified type J06.9 URI type: unspecified URI Assessment and Plan Assessment and Plan (1) URI (upper respiratory infection): Status: Acute Qualifiers: URI type: unspecified URI Qualified Code(s): J06.9 - Acute upper respiratory infection, unspecified Plan: Will send as what has been successful previously based on allergy history. Encouraged to get plenty of rest, drink lots of clear liquids, and use Tylenol or Ibuprofen (unless contraindicated) for fever and comfort. Patient also educated on other symptomatic management techniques. To be seen in 7-10 days if no improvement; sooner if worsening of symptoms.? Patient advised of potential red flags and when appropriate to report to the ED.? Patient verbalized understanding and agreement with all the above. Medications: Changed From azithromycin take 500 mg today (day 1), then 250 mg for 4 days (days 2-10) PO 11 tabs 0RF To azithromycin take 500 mg today (day 1), then 250 mg for days 2-10 PO 11 tabs 0RF Refilled prednisone Take 4 pills for 3 days, 3 pills for 3 days, 2 pills for 3 days, take 1 pill for 3 days 12 days 30 tabs 0RF Clinical Quality Measures Falls Risk Screening/Assistive Devices Have you fallen in the past year?: No 12/07/24 1209 <Electronically signed by Sunday RIVAS> Date _ Sunday RIVAS Cosigner Signature: Date (if applicable) CC: Dr. Clive Patel MD ~ [facility] Work Phone: 1(495) 948-138906-30-2025 Evaluation note* Diagnosis Onset Date Resolution Status Admit Date Hormone replacement therapy acute November 10, 2024 9:27am Encounter for routine gynecological examination noneactive October 142024 9:27am URI (upper respiratory infection) acute December 07, 2024 11:29am [facility] Work Phone: 1(109) 752-684412-12-2024 Note ORIGINAL EXAMINATION: CT Sinuses without intravenous contrast TECHNIQUE: Axial noncontrast CT of the head and paranasal sinuses was performed. Coronal and sagittal reconstructions. DICOM images are available. One or more of the following dose reduction techniques were used: automated exposure control, adjustment of the mA and/or kV according to patient size, or use of iterative reconstruction. COMPARISON: None. HISTORY: ORDERING SYSTEM PROVIDED HISTORY: Reason for Exam: SINUSITIS FINDINGS: Maxillary sinuses: Clear. Sphenoid sinuses: Clear. Ethmoid sinuses: Clear. Frontal sinuses: Aplastic right and hypoplastic left frontal sinuses. Frontoethmoidal recesses: Clear. Sphenoethmoidal recesses: Clear. Ostiomeatal units: Clear. Fluid levels: None. Nasal septum: Midline. Nasopharynx: Unremarkable. Nasal cavity: Unremarkable. Mastoid air cells: Clear. Orbits: Unremarkable. Post bilateral lens implant surgery. Visualized brain: No acute pathology. Soft tissues: Unremarkable. Bones: No acute or remote fracture. No focal osseous lesions. 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 Joint calcifications on the right may reflect deposition disease. IMPRESSION: 1. No acute or chronic paranasal sinus disease. 2. 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 Joint calcifications on the right may reflect deposition disease. Interpreted by: Primo Prado MD Preliminary Report By: Primo Prado MD Electronically signed By Primo Prado MD Dictated Date: 04/24/2024 1:55:32 PM Prelim Date: 04/24/2024 1:58:12 PM Sign Date: 04/24/2024 1:58:12 PM Ordering Provider: CLIVE [facility]09-30-2024 Note [facility] Medical Records Department [address] [place] [address] History Physical Exam 02/11/24 0810 MR#: [id number] Acct: [id number] Name: PHAM TEJADA Rep #: [id number] : 1945 78 From: Jia Stephen MD PCP: Dr. Clive Patel MD Status:[facility] Location: [place] [address] History and Physical Date of Admission: 02/11/24 Date of Service: 01/16/24 MR#: [id number] Acct: [id number] Name: PHAM TEJADA Rep #: [id number] : 1945 Provider: Dr. Jia Stephen MD Age/Sex: 78/F Location: [facility] Status: Signed Intake Vital Signs 11/05/2413:02 01/13/2410:49 01/16/2408:52 Height 5 ft 5 in 5 ft 5 in 5 ft 5 in Weight: 171 lb 2 oz BMI 28.5 BP 123/76 H Blood Pressure Location Rt brachial Position Sitting Respiration 17 Pulse 82 Pulse Source Monitor Temp 97.3 F L Temp Source Temporal Pulse Oximetry (%) 98 Oxygen Delivery Method room air Intake Visit Reasons: positive cologuard Chief Complaint: positive cologuard Is patient in pain?: No Allergies amoxicillin (From Augmentin) Allergy (Intermediate, Verified 01/16/24 08:55) Rashclarithromycin (From Biaxin) Allergy (Intermediate, Verified 01/16/24 08:55) Rashclavulanic acid (From Augmentin) Allergy (Intermediate, Verified 01/16/24 08:55) Rashdoxycycline Allergy (Intermediate, Verified 01/16/24 08:55) HivesPenicillins Allergy (Intermediate, Verified 01/16/24 08:55) Hivesoxycodone (From Percocet) Allergy (Mild, Verified 01/16/24 08:55) RashSulfa (Sulfonamide Antibiotics) Allergy (Mild, Verified 01/16/24 08:55) Otherquinapril Adverse Reaction (Intermediate, Verified 01/16/24 08:55) Other Medications ???Medication ???Instructions ???Recorded ???Confirmed ???Type amlodipine 5 mg tablet 5 mg PO DAILY 02/12/23 01/16/24 History estradiol 0.075 mg/24 hr weekly 1 patch transdermal QWEEK 02/12/23 01/16/24 History transdermal patch (Climara) levothyroxine 100 mcg tablet 100 mcg PO DAILY 02/12/23 01/16/24 History (Synthroid) azithromycin 250 mg tablet See Rx Instructions PO .COMPLEX 10 01/14/24 01/16/24 Rx (Zithromax Z-Franco) days #11 tabs prednisone 10 mg tablet 10 mg PO .COMPLEX 12 days #30 tabs 01/14/24 01/16/24 Rx acetaminophen 650 mg 650 mg PO Q12H 01/16/24 01/16/24 History tablet,extended release (Tylenol Arthritis Pain) ascorbic acid (vitamin C) 1,000 mg 1 g PO QDAY 01/16/24 01/16/24 History capsule cholecalciferol (vitamin D3) 25 25 mcg PO QDAY 01/16/24 01/16/24 History mcg (1,000 unit) capsule cyanocobalamin (vitamin B-12) 1,000 mcg PO QDAY 01/16/24 01/16/24 History 1,000 mcg capsule meloxicam 15 mg tablet 15 mg PO QDAY 01/16/24 01/16/24 History trazodone 50 mg tablet 50 mg PO QDAY 01/16/24 01/16/24 History Have you fallen in the past year?: No PFSH Medical History (Updated 01/16/24 @ 08:51 by Gege Dumont) Osteoarthritis of left knee Left knee pain Surgical History Status post glaucoma surgery S/P knee replacement Finger joint replaced H/O: hemorrhoidectomy History of thyroidectomy History of hysterectomy Social History household members: spouse current occupational status: retired Smoking Status: Never smoker alcohol intake: never substance use type: does not use seatbelt use: always do you feel safe at home: Yes additional social history: - Dimitrios- Retired HPI HPI HPI: 78-year-old female presents due to positive Cologuard for diagnostic colonoscopy. Patient's last colonoscopy was at age 70 per patient negative. Patient states she has bowel movements daily denies any blood. Patient denies any chronic abdominal pain/nausea/vomiting/reflux. Patient denies any family history of colon cancer. Patient will be gone on a trip to [place] from January 19 through . ROS General General: No weight change, appetite, fatigue, colon cancer or breast cancer HEENT HEENT: Yes eye surgery; No difficulty swallowing, eye injury, swollen glands or hoarseness Endo Endocrine: Yes thyroid disease; No diabetes mellitus, thyroid cancer, Hair loss, heat intolerance or cold intolerance Skin Skin: No rash or changing moles Musc Musculoskeletal: Yes back problems and arthritis; No rheumatoid arthritis, gout or joint pain Cardio Cardiovascular: No murmur, pacemaker, heart disease, atrial fibrillation, high blood pressure, heart attack, heart stent, palpitations, shortness of breat with exertion or chest pain Psych Psychiatric: No depression, anxiety or hearing voices Resp Respiratory: No shortness of breath, No sleep apnea, N (more content not included)...[facility] No data available for this section [facility] Evaluation noteNo assessment information available [facility] Work Phone: Evaluation note* Diagnosis Onset Date Resolution Status Left knee pain acute Osteoarthritis of left knee acute [facility] Work Phone: Evaluation note* Diagnosis Onset Date Resolution Status Admit Date Encounter for routine gynecological examination noneactive October 142024 9:27am [facility] Work Phone: Hospital Discharge instructions No data available for this section [facility] Progress note No data available for this section [facility] Reason for referral (narrative)No reason for referral [facility] Work [facility]: Chief Complaint and Reason for Visit Chief Complaint SINUSITIS Chief Complaint SINUSITIS SCREENING Chief Complaint SCREENING Chief Complaint SCREENING ABN MAMM Chief Complaint SEND COPY TO DR KELY ATWOOD F/U BREAST Chief Complaint M71.22 Synovial cyst of popliteal space [Jensen], l LEFT KNEE Room 2 Reason for Visit Left knee pain Osteoarthritis of left knee Chief Complaint 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 Date 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 10, 2024 9:27 am Reason for Visit Admit Date Encounter for routine gynecological exam ination November 10, 2024 9:27am Chief Complaint Admit Date 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 10, 2024 9:27 am SINUS PRESSURE/PAIN December 07, 2024 11:2 9am Reason for Visit Admit Date Hormone replacement therapy November 10 9:27am Encounter for routine gynecological exam ination November 10, 2024 9:27am URI (upper respiratory infection) November 122024 11:29am Chief Complaint Admit Date 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 10, 2024 9:27 am SINUS PRESSURE/PAIN December 07, 2024 11:2 9am screen for breast cancer December 25 11:49am Summary Purpose Family History No Family History Records Found No data available for this section No Family History Records Found Advance Directives No Advanced Directives Records FoundNo Advanced Directives Records Found Additional Source Comments Goals (unrecognized section and content) Goals may be documented in a n alternate sectionGoals may be documented in an alternate sectionGoals may be documented in an alternate sectionGoals may be documented in an alternate sectionGoals may be documented in an alternate sectionGoals may be documented in an alternate sectionGoals may be documented in an alternate sectionGoals may be documented in an alternate sectionGoals may be documented in an alternate section No data available for this sectionGoals may be documented in an alternate sectionGoals may be documented in an alternate sectionGoals may be documented in an alternate section Care Teams (unrecognized sec tion and content) Team Status: Active Member Role Status Dates Dr. Clive Patel MD Family Provider Active Dr. Clive Patel MD Primary Care Provider Active Team Status: Inactive Member Role Status Dates Dr. Clive Patel MD Primary Care Provide r, Attending Provider, Referring Provider Active Team Status: Inactive Member Role Status Dates Dr. Clive Patel MD Primary Care Provider Active Dr. Marianna Paredes DO Attending Provider, Referrin g Provider Active Team Status: Active Member Role Status Dates Dr. Clive Patel MD Primary Care Provider Active Dr. Jia Stephen MD Attending Provider Active Team Status: Inactive Member Role Status Dates Dr. Clive Patel MD Primary Care Provide r, Attending Provider, Referring Provider Active Dr. Bassam Parra MD Other Provider Active Team Status: Inactive Member Role Status Dates Dr. Clive Patel MD Primary Care Provider Active Dr. Jia Stephen MD Attending Provider Active Team Status: Inactive Member Role Status Dates Dr. Clive Patel MD Primary Care Provider, Referring P flor Active Nicolas Abad MD Attending Provider Active Team Status: Inactive Member Role Status Dates Dr. Clive Patel MD Primary Care Provider Active Dr. Sim Paez MD Attending Provider Active Team Status: Active Member Role/Relationship Status Dates Dr. Clive Patel MD Family Provider Active Dr. Clive Patel MD Primary Care Provider Active Team Status: Inactive Member Role/Relationship Status Dates Dr. Clive Patel MD Primary Care Provider Active Start: November 10, 2024 End: November 10, 2024 Dr. Clive Patel MD Referring Provider Active St art: November 10, 2024 End: November 10, 2024 Cande Ryan [employer] INTER[employer], [employer]-C Attending Provider Active Start: November 10, 2024 End: November 10, 2024 Team Status: Inactive Member Role/Relationship Status Dates Dr. Clive Patel MD Primary Care Provider Active Start: December 07, 2024 End: December 07, 2024 Dr. Clive Patel MD Referring Provider Active St art: December 07, 2024 End: December 07, 2024 Sunday Casiano [employer] MARK[employer] INTERN, [employer] MARK[employer]ING INTERN-C Attending Provider Active S tart: December 07, 2024 End: December 07, 2024 Team Status: Active Member Role/Relationship Status Dates Dr. Clive Patel MD Primary Care Provider Active Team Status: Inactive Member Role/Relationship Status Dates Dr. Clive Patel MD Primary Care Provider Active Start: December 25, 2024 End: December 25, 2024 Cande Ryan [employer] INTERN, [employer]N-C Attending Provider Active Start: December 25, 2024 End: December 25, 2024 Cande Ryan [employer] MARK[employer] INTERN, [employer]-C Referring Provider Active Start: December 25, 2024 End: December 25, 2024 INFORMATION SOURCE (unrecogn ized section and content) DATE CREATED AUTHOR 04/26/2024 [facility] DATE CREATED AUTHOR AUTHOR'S ORGANIZ ATION 01/02/2025 [facility] FOR RECORDS PERTAINING TO PATIENTS WHO ARE OR HAVE BEEN ENROLLED IN A CHEMICAL DEPENDENCY/SUBSTANCEABUSE PROGRAM, SOME INFORMATION MAY BE OMITTED. This clinical summary was aggregated from multiple sources. Caution should be exercised in using it in the provision of clinical care. This summary normalizes information from multiple sources, and as a consequence, information in this document may materially change the coding, format and clinical context of patient data. In addition, data may be omitted in some cases. CLINICAL DECISIONS SHOULD BE BASED ON THE PRIMARY CLINICAL RECORDS. [facility] [employer] [facility]. provides no warranty or guarantee of the accuracy or completeness of information in this document.
[2025-02-06 16:23] LABS: Hematocrit 44.5 % (37-47); Hemoglobin 14.4 g/dL (12.0-15.0); Immature Granulocytes Count 0.010 X10^3/uL (0.0-0.0); Mean Corp Hgb Conc 32.4 g/dL (32-36); Mean Corpuscular Volume 90.1 fL (81-99); Mean Platelet Vol. 10.4 fl (6.2-12.0); NRBC Flagged by Analyzer 0 % (0-5); Platelet Count 232 K/mm3 (150-450); RBC Distribution Width CV 13.2 % (11.6-14.6); RBC Distribution Width SD 43.8 fl (35.1-43.9); Red Blood Count 4.94 M/mm3 (4.2-5.4); White Blood Count 5.8 K/mm3 (4.4-11.0)
[2025-02-06 16:24] LABS: Creatinine, Urine (random) 45.20 mg/dL (28.00-217.00); Microalbumin,Random Urine < 12.0 mg/L (<20 mg/L)
[2025-02-06 16:31] LABS: AST(SGOT) 19 U/L (<=31); Alanine Aminotransfer ALT/SGPT 12 U/L (<=34); Albumin, Serum 4.4 g/dL (3.4-4.8); Alkaline Phosphatase 51 U/L (35-104); Anion Gap 14 (5-15); BUN 15 mg/dL (4-19); BUN/Creat Ratio 19.0 RATIO (10-20); Calcium,Total 9.3 mg/dL (7.6-11.0); Carbon Dioxide 24.1 mmol/L (21.0-32.0); Chloride 102 mmol/L (98-108); Free T3 3.1 pg/mL (2.18-3.98); Globulin 2.5 g/dL (2.2-4.2); Glucose 74 mg/dL (70-99); Potassium 3.9 mmol/L (3.3-5.1); T4 Total, Thyroxin 9.1 ug/dL (4.8-13.9)
== END 2025-02-06 23:59 | disposition home or self-care (01) ==
LOC: MTLAB 11:23
PROVIDERS: PCP Family Medicine; Referring Provider Family Medicine; Visit Provider Family Medicine
DX: I10 Essential (primary) hypertension (principal); E03.9 Hypothyroidism, unspecified
CPT/HCPCS: 36415; 80053; 82043; 82570; 84436; 84439; 84443; 84481; 85025